=== PATIENT | male | born 1955 | race Caucasian/White ===

== ENCOUNTER 2020-04-16 08:00 | Outpatient (REF) | payer MEDICARE, MEDICAID, SELFPAY ==
--- NOTE | 2020-04-16 08:20 | MR_ITS ---
EXAMINATION: MR ABDOMEN WITHOUT AND WITH CONTRAST CLINICAL INFORMATION: Follow up liver lesion. COMPARISON: Outside CT of the abdomen and pelvis 02/26/2020. TECHNIQUE: MR abdomen was performed without and with use of 10 mL intravenous Gadavist gadolinium contrast. Postcontrast images are performed in multiphase dynamic sequences. Imaging was performed in 3 planes. Exam is limited due to respiratory motion artifact. FINDINGS: LUNG BASES: The visualized lung bases are unremarkable. LIVER, GALLBLADDER, AND BILIARY TREE: The liver is normal in size in size and shape. The liver appears low signal on in phase gradient echo T2-weighted sequences probably related to iron deposition from multiple transfusions. No focal liver lesion is seen. The gallbladder has been removed. There is no intra or extrahepatic biliary duct dilatation. PANCREAS: The pancreas is normal appearing. The main pancreatic duct is normal appearing. SPLEEN: The spleen is slightly enlarged measuring 13.4 cm in length. The spleen is also low signal on gradient echo in phase and T2-weighted sequences again questionable for iron deposition from multiple transfusions. ADRENAL GLANDS: Normal. KIDNEYS AND URETERS: Both kidneys appear small. The right kidney measures 7.3 and the left kidney measures 7.5 cm in length. There is bilateral renal cortical thinning. There are innumerable bilateral renal cysts, largest measuring 1.3 cm. No hydronephrosis or mass is seen. GASTROINTESTINAL TRACT: The visualized small and large bowel is unremarkable. No bowel obstruction. There is mild diffuse wall thickening of the stomach probably artifactual due to underdistention. No ascites or fluid collection. ABDOMINAL WALL: No significant hernia is appreciated. LYMPH NODES: No lymphadenopathy. VASCULAR: Unremarkable. OSSEOUS STRUCTURES: There are degenerative changes of the spine. There is decreased T2 marrow signal probably representing increased red marrow stores due to anemia. MR/MR abdomen wo/w con IMPRESSION: Limited exam due to respiratory motion artifact. No focal liver lesion seen. Probable increased iron stores in the liver and spleen related to multiple transfusions. Mild splenomegaly. Atrophic-appearing kidneys with innumerable small bilateral renal cysts.
[2020-04-16 11:16] LABS: Anion Gap 23 (12-20); Blood Urea Nitrogen 48 mg/dL (9-16); Calcium 7.8 mg/dL (8.4-10.2); Carbon Dioxide 25 mmol/L (22-29); Chloride 97 mmol/L (96-108); Estimated Glomerular Filt Rate 5; Glucose Random 199 mg/dL (60-115); Potassium 5.9 mmol/l (3.3-5.1); Sodium 139 mmol/L (135-145)
== END 2020-04-16 08:01 | disposition home or self-care (01) ==
LOC: HO.MRI 08:00
PROVIDERS: PCP Internal Medicine Geriatric Medicine; Visit Provider Internal Medicine Geriatric Medicine
DX: R16.0 Hepatomegaly, not elsewhere classified (principal)
CPT/HCPCS: 74183; 80048; A9585

== ENCOUNTER 2020-06-25 06:05 | Emergency (ER) | payer MEDICARE, MEDICAID, SELFPAY ==
--- NOTE | ~2020-06-25 | CT_ITS ---
EXAMINATION: CT HEAD WITHOUT CONTRAST CLINICAL INFORMATION: Fall with head trauma COMPARISON: March 23, 2018 TECHNIQUE: Contiguous axial imaging was performed from the skull base to vertex without intravenous administration of contrast. This CT examination was performed using dose optimization techniques as appropriate, variously including the following: *Automated exposure control *Adjustment of mA and/or kV according to patient size (this includes techniques or standardized protocols for targeted exams where dose is matched to indication/reason for exam; i.e. extremities or head) *Use of iterative reconstruction technique DLP: 902 mGy-cm FINDINGS: There is no evidence of acute intracranial hemorrhage or territorial infarction. No abnormal mass effect or midline shift is seen. Góme[place] to white matter differentiation is well preserved. No extra-axial fluid collections are identified. The ventricle sulci and cisterns are prominent consistent with some degree of atrophy.. There is no abnormal attenuation within the brain parenchyma. The osseous structures and soft tissues are normal. The mastoid air cells and visualized portions of the paranasal sinuses are well aerated. CT/CT head/brain wo con IMPRESSION: No acute intracranial pathology.
--- NOTE | ~2020-06-25 | CT_ITS ---
EXAMINATION: CT CERVICAL SPINE WITHOUT CONTRAST CLINICAL INFORMATION: Fall, trauma, pain COMPARISON: CT C-spine 02/15/2015 TECHNIQUE: Multidetector volumetric CT imaging of the cervical spine is performed without contrast in the axial plane. Additional 2D reformatted coronal and sagittal images are generated on the CT workstation and uploaded to PACS. This CT examination was performed using dose optimization techniques as appropriate, variously including the following: *Automated exposure control *Adjustment of mA and/or kV according to patient size (this includes techniques or standardized protocols for targeted exams where dose is matched to indication/reason for exam; i.e. extremities or head) *Use of iterative reconstruction technique DLP: 749 mGy-cm FINDINGS: There is no acute bony traumatic abnormality. No vertebral compression, spondylolisthesis, or prevertebral soft tissue swelling. The odontoid appears intact. The craniocervical junction is normal. There is normal cervical lordosis. There are degenerative disc changes C5-C6 with some cystic change at the endplates, extending into the C5 vertebral body, 1 cm in size with circumscribed margins. No paraspinal soft tissue swelling. There is no perched facet. There is no apical pneumothorax. There is intravascular stent seen on the right involving the subclavian vein and superior vena cava. CT/CT cervical spine wo con IMPRESSION: 1. No acute bony abnormality or prevertebral soft tissue swelling. 2. Degenerative changes C5-C6 with 1 cm cystic change inferior C5. No paraspinal soft tissue swelling.
[2020-06-25 06:13] VITALS: BP 158/62; BP 183/92; PULSE 63; PULSE 68; RESP 18; TEMP 37.6; O2SAT 97; O2SAT 98; BMI 28.8
--- NOTE | 2020-06-25 06:49 | ED_ITS ---
HPI - Fall General Chief Complaint: Fall Stated Complaint: fall Time Seen by Provider: 06/25/20 06:49 Source: patient Mode of arrival: EMS Limitations: no limitations History of Present Illness HPI Narrative: Patient fell in the hallway of his apartment, he normally uses a walker complaint: fall Onset (ago): minute(s) Fall from: standing Fall witnessed: no Place fall occurred: home Loss of consciousness: yes Prolonged down time: no Symptoms prior to fall: none Context: tripped/slipped Related Data Previous Rx's Medication Instructions Recorded isosorbide mononitrate 60 mg 60 mg PO DAILY #30 tab 05/16/20 tablet,extended release 24 hr Allergies Allergy/AdvReac Type Severity Reaction Status Date / Time No Known Allergies Allergy Unverified 01/25/20 16:50 [No Known Allergies*] Review of Systems Constitutional: Constitutional: Reports no additional constitutional complaints Eyes: Eyes: Reports no additional eye complaints ENT: Denies dizziness Cardiovascular: Cardiovascular: Reports no additional cardiovascular complaints Respiratory: Respiratory: Reports as per HPI Gastrointestinal: Gastrointestinal: Reports no additional gastrointestinal complaints Musculoskeletal: Musculoskeletal: Reports no additional musculoskeletal complaints Integumentary/Breasts: Skin/Breast: Denies rash Neurologic: Reports system reviewed and no additional complaints, except as documented, Denies dizziness and Denies Sensory deficit (Neuro) Psychiatric: Psychiatric: Denies anxiety [facility] Past Medical History Medical History (Updated 06/25/20 @ 09:26 by Hoang Moreno MD) Diabetes Social History Social History Advance Directives: No Physical Exam Vital Signs: Vital Signs: Last Vital Signs Temp 99.6 F 06/25/20 06:13 Pulse 67 06/25/20 09:17 Resp 18 06/25/20 09:17 BP 154/72 H 06/25/20 09:17 Pulse Ox 97 06/25/20 09:17 Body Mass Index 28.8 Const: Other: chronically ill Male, abnormal mental status which may be baseline Orientation/consciousness: oriented to person Limitations: behavioral limitations HENMT: Head: Yes normal to inspection Ears: external ears normal General nose exam: Normal external nose present Mouth: Normal oral and palatal mucosa present and oropharynx normal Throat: Yes posterior oropharynx normal Eyes: General: appearance normal, both eyes and all related structures Neck: Other: supple Neck: Yes normal visual inspection Chest: Chest palpation & inspection: normal inspection of the chest Resp: Auscultation: clear to auscultation bilaterally Cardio: Jugular venous distension: no JVD Rate: regular rate Rhythm: regular rhythm Heart sounds: S1 normal heart sound present and S2 normal heart sound present GI: Inspection: Yes normal to inspection Palpation (GI): Soft to palpation, nontender and No hepatosplenomegaly present Auscultation: normal bowel sounds Back/Spine/Pelvis: Other: chronic neck and back pain Skin: General skin exam: no rashes or lesions noted Neuro: Other: lower extremity weakness which the patient states is his baseline General: oriented to person Cranial nerves: Yes CN's II-XII intact bilaterally Sensory Exam: No Sensory deficit (Neuro) Extrem: General: Yes normal to inspection Psych: Appearance: grossly normal Course Course Course Narrative: no evidence of injury hyperkalemia without ekg changes. Will get patient to dialysis MDM - Fall MDM Narrative Medical decision making narrative: With no evidence of injury and patient due for dialysis will get patient to dialysis Lab Data Result diagrams: 06/25/20 07:02 06/25/20 07:02 Labs: Lab Results 06/25/20 06/25/20 06/25/20 Range/Units 07:02 07:02 07:23 WBC 12.4 H (4.8-10.8) X10*3/uL RBC 2.85 L (4.60-5.80) X10*6/uL Hgb 9.5 L (14.0-18.0) g/dl Hct 28.5 L (42-52) % MCV 100.0 H (80-98) fL MCH 33.3 H (27.0-33.0) pg MCHC 33.3 (31.0-36.0) g/dl RDW 14.8 (11.0-16.0) % Plt Count 162 (160-400) X10*3/uL MPV 9.9 (9.4-12.4) fL Immature Gran % (Auto) 0.3 (0.0-0.4) % Neut % (Auto) 83.9 H (45-73) % Lymph % (Auto) 8.2 L (20-40) % [place] % (Auto) 6.8 (2-11) % Eos % (Auto) 0.5 (0-4) % Baso % (Auto) 0.3 (0-2) % Lymph # (Auto) 1.0 L (1.2-4.9) X10*3/uL [place] # (Auto) 0.8 (0.1-1.2) X10*3/uL Eos # (Auto) 0.1 (0.0-0.4) X10*3/uL Baso # (Auto) 0.0 (0.0-0.2) X10*3/uL Abs Immat Gran (auto) 0.04 H (0.00-0.03) X10*3/uL Absolute Neuts (auto) 10.4 H (2.0-8.3) X10*3/uL Absolute Nucleated RBC 0.000 (0.0-0.012) X10*3/uL Nucleated RBC % (auto) 0.0 (0.0-0.2) /100WBC Sodium 137 (135-145) mmol/L Potassium 6.9 H* (3.3-5.1) mmol/L Chloride 100 (96-108) mmol/L Carbon Dioxide 23 (22-29) mmol/L Anion Gap 21 H (12-20) BUN 50 H (9-16) mg/dL Creatinine 8.67 H* (0.5-1.4) mg/dL Estim Creat Clear Calc 9.6 Estimated GFR 6 POC Glucose 117 H (60-115) mg/dL Random Glucose 118 H D (60-115) mg/dL Calcium 8.1 L (8.4-10.2) mg/dL Imaging Data CT neck: Radiologist's impression: degenerative changes CT scan - head: Radiologist's impression: no acute change ECG Data Attestation: I personally reviewed and interpreted this ECG as follows: Interpretation: sinus 66, no st or twave changes, no evidence of hyperkalemia Discharge Plan Discharge Clinical Impression: Fall Qualifiers: Encounter type: initial encounter Qualified Code(s): W19.XXXA - Unspecified fall, initial encounter Patient Disposition: Home, Self-Care Prescriptions: No Action isosorbide mononitrate 60 mg tablet extended release 24 hr 60 mg PO DAILY Qty: 30 RF: 1 Referrals: Physician,Unknown [Primary Care Provider] - 2 days
--- NOTE | 2020-06-25 06:57 | ECG_ITS ---
Test Reason : SYNCOPE Blood Pressure : / mmHG Vent. Rate : 066 BPM Atrial Rate : 066 BPM P-R Int : 158 ms QRS Dur : 096 ms QT Int : 406 ms P-R-T Axes : 050 -47 016 degrees QTc Int : 425 ms Normal sinus rhythm Possible Left atrial enlargement Left axis deviation Abnormal ECG When compared with ECG of 22-MAR-2018 14:24, Premature atrial complexes are no longer Present Vent. rate has decreased BY 38 BPM QT has shortened Referred By: Hoang Moreno Electronically Signed By:Shekhar Shepherd
[2020-06-25 07:07] LABS: MANUAL DIFF FLAG NO
[2020-06-25 07:08] LABS: Basophils Percent Auto 0.3 % (0-2); Eosinophils Absolute Auto 0.1 X10*3/uL (0.0-0.4); Eosinophils Percent Auto 0.5 % (0-4); Hematocrit 28.5 % (42-52); Hemoglobin 9.5 g/dl (14.0-18.0); Imm Gran Abs Auto 0.04 X10*3/uL (0.00-0.03); Imm Gran Pct Auto 0.3 % (0.0-0.4); Lymphocytes Percent Auto 8.2 % (20-40); Mean Corpuscular HGB Conc 33.3 g/dl (31.0-36.0); Mean Corpuscular Hemoglobin 33.3 pg (27.0-33.0); Mean Platelet Volume 9.9 fL (9.4-12.4); Monocytes Absolute Auto 0.8 X10*3/uL (0.1-1.2); Monocytes Percent Auto 6.8 % (2-11); Neutrophils Absolute Auto 10.4 X10*3/uL (2.0-8.3); Neutrophils Percent Auto 83.9 % (45-73); Platelet Count 162 X10*3/uL (160-400); Red Blood Count 2.85 X10*6/uL (4.60-5.80); Red Cell Distribution Width 14.8 % (11.0-16.0); White Blood Count 12.4 X10*3/uL (4.8-10.8)
[2020-06-25 07:14] VITALS: BP 161/65; PULSE 65; RESP 18; O2SAT 98
--- NOTE | 2020-06-25 07:20 | PC.NURSE ---
pt awake in bed awaiting ct scan at time of shift report. he has no access at this time he has no obvious deformities ,bruising or abrasion when hospital attire is donned. he reports back pain acute on chronic
[2020-06-25 07:28] LABS: Glucose, Whole Blood 117 mg/dL (60-115)
[2020-06-25 07:54] LABS: Anion Gap 21 (12-20); Blood Urea Nitrogen 50 mg/dL (9-16); Calcium 8.1 mg/dL (8.4-10.2); Carbon Dioxide 23 mmol/L (22-29); Chloride 100 mmol/L (96-108); Creatinine Clr Calc Pharmacy 9.6; Estimated Glomerular Filt Rate 6; Glucose Random 118 mg/dL (60-115); Potassium 6.9 mmol/L (3.3-5.1); Sodium 137 mmol/L (135-145)
[2020-06-25 09:17] VITALS: BP 154/72; PULSE 67; RESP 18; O2SAT 97
--- NOTE | 2020-06-25 09:49 | PC.NURSE ---
CALLED TO [facility]. PT IS OK TO GO THIS AM FOR HIS TREATMENT JAVI CARDOZO
[2020-06-25 10:22] VITALS: BP 151/64; PULSE 66; RESP 18
--- NOTE | 2020-06-25 11:59 | PC.NURSE ---
NO REPORT TO EMS. PT WAS OUT OF ROOM WHEN THIS RN WENT TO PROVIDE CREW HX.
== END 2020-06-25 12:00 | disposition home or self-care (01) ==
PROVIDERS: Emergency Provider Emergency Medicine
DX: Z04.3 Encounter for examination and observation following other accident (principal); E11.9 Type 2 diabetes mellitus without complications
CPT/HCPCS: 36415; 70450; 72125; 80048; 82947; 85025; 93005; 99284

== ENCOUNTER 2020-07-14 09:51 | Emergency (ER) | payer MEDICARE, MEDICAID, SELFPAY ==
--- NOTE | ~2020-07-14 | XR_ITS ---
EXAMINATION: XR CHEST CLINICAL INFORMATION: Weakness. COMPARISON: Chest done on 03/22/2018. TECHNIQUE: Frontal view of the chest was obtained. FINDINGS: No significant abnormality is noted involving the heart, lungs, mediastinum, bony thorax or soft tissues. Multiple overlapping radiopaque wallstents are identified projecting over the right shoulder and subclavicular, paramediastinal region, unchanged. XR/XR chest 1V IMPRESSION: No radiographic evidence of acute pulmonary disease, unchanged.
[2020-07-14 09:59] VITALS: BP 217/98; PULSE 75; RESP 16; TEMP 36.6; O2SAT 100; BMI 28.1
--- NOTE | 2020-07-14 10:03 | ECG_ITS ---
Test Reason : ABNORMAL LABS Blood Pressure : / mmHG Vent. Rate : 073 BPM Atrial Rate : 073 BPM P-R Int : 140 ms QRS Dur : 088 ms QT Int : 444 ms P-R-T Axes : 051 -37 -19 degrees QTc Int : 489 ms Sinus rhythm with PACs Left axis deviation Nonspecific T wave abnormality Prolonged QT Abnormal ECG When compared with ECG of 25-JUN-2020 07:07, T wave inversion more evident in Inferior leads Nonspecific T wave abnormality now evident in Lateral leads QT has lengthened Referred By: Milan Soto Electronically Signed By:THOM CABRAL
--- NOTE | 2020-07-14 10:03 | ED.GENADULT ---
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 Arnulfo cruz [facility], diabetes, hypertension, asthma, osteoarthritis, depression, nephrolithiasis who presents via EMS from home with complaint of states after his dialysis on he received his 2nd round of his COVID vaccination ([employer]) states the next morning he started having body aches and overall feeling unwell for this reason he misses dialysis yesterday. Today he presents as complaint of overall feeling unwell with myalgias and due to missing his dialysis. States this this morning he had episode of nausea and loose stool that she did not take his blood pressure medication as well. Onset (ago): day(s) (3 days ) Severity: moderate Associated symptoms: nausea/vomiting Related Data Previous Rx's Medication Instructions Recorded isosorbide mononitrate 60 mg 60 mg PO QAM #30 tab 07/09/20 tablet,extended release 24 hr ranolazine 500 mg tablet,extended 500 mg PO BID #60 tab 07/09/20 release,12 hr Allergies Allergy/AdvReac Type Severity Reaction Status Date / Time No Known Allergies Allergy Unverified 01/25/20 16:50 [No Known Allergies*] Review of Systems Review of Systems: Constitutional: No Weight loss, No Fever, No Chills, No Night Sweats, No Fatigue, No Malaise ENT/Mouth: No Hearing loss, No Ear Pain, No Nasal Congestion, No Sinus Pain, No Hoarseness, No sore throat, No Rhinorrhea, No Swallowing Difficulty Eyes: No Eye Pain, No Swelling, No Redness, No Foreign Body, No Discharge, No Vision Changes Cardiovascular: No Chest Pain, No SOB, No Dyspnea on Exertion, No Orthopnea, No Edema, No Palpitations Respiratory: No Cough, No Sputum, No Wheezing, No Smoke Exposure, No Dyspnea Gastrointestinal:+ Nausea,+ Vomiting, No Diarrhea, No Constipation, No abdominal Pain, No Hematochezia, No Melena Genitourinary: No Dysuria, No Urinary Frequency, No Hematuria, No Urinary Incontinence, No Urgency, No Flank Pain, No Urinary Flow Changes, No Hesitancy Musculoskeletal: No joint pain, No Myalgias, No Joint Swelling Skin: No Skin Lesions, No rash Neuro: No Weakness, No Numbness, No Paresthesias, No Loss of Consciousness, No Dizziness, No Headache Psych: No Social Issues Heme/Lymph: No Bruising, No Bleeding,No Lymphadenopathy Endocrine: No Polyuria, No Polydipsia, No Temperature Intolerance Yes all other systems are reviewed and are negative [facility] Past Medical History [facility] Narrative: end-stage renal disease on hemodialysis Wednesday, , Wednesday being followed by Dr. Arnulfo cruz [facility], diabetes, hypertension, asthma, osteoarthritis, depression, nephrolithiasis Medical History Diabetes Surgical History Hx of cardiac cath Hx of cholecystectomy Hx of colonoscopy Hx of knee surgery Family History Family History (Updated 07/12/20 @ 16:27 by SALONI Wang) Father No problems noted. Mother Diabetes Social History Social History Advance Directives: No Advance Directives Information Provided: No Physical Exam Vital Signs: Vital Signs: Last Vital Signs Temp 97.9 F 07/14/20 09:59 Pulse 84 07/14/20 13:55 Resp 16 07/14/20 09:59 BP 190/85 H 07/14/20 15:07 Pulse Ox 100 07/14/20 09:59 Body Mass Index 28.1 Reviewed Const: General: cooperative; No intoxicated appearing Nutritional Appearance: average body habitus and overweight Orientation/consciousness: patient oriented x3 HENMT: Head: Yes normal to inspection Ears: hearing grossly normal bilaterally Eyes: General: appearance normal, both eyes and all related structures Visual Glover: normal visual glover by confrontation Neck: Neck: Yes normal visual inspection, No positive Brudzinski's sign, No positive Kernig's sign and No tender Thyroid: Thyroid normal Chest: Chest palpation & inspection: normal inspection of the chest Resp: Effort & Inspection: normal respiratory effort Auscultation: clear to auscultation bilaterally Cardio: Jugular venous distension: no JVD Rhythm: regular rhythm Heart sounds: S1 normal heart sound present and S2 normal heart sound present GI: Inspection: Yes normal to inspection Percussion: Yes normal to percussion Auscultation: normal bowel sounds : General: Yes no CVA tenderness Back/Spine/Pelvis: Back: no CVA tenderness Skin: General skin exam: no rashes or lesions noted Neuro: General: patient oriented x3 Extrem: Other: Right upper extremity with dialysis fistula without evidence of acute infection or bleeding. Positive thrill/bruit General: Yes normal to inspection Right upper extremity: normal to inspection and full ROM Left upper extremity: normal to inspection and full ROM Course Course Course Narrative: Myalgia and pains after COVID vaccination misses dialysis yesterday. Labs overall reassuring does not appear to be in fluid overload. K slightly bump given Kayexalate. He is currently eating sandwich and drinking drill was given his blood pressure medication here and observe responded well. Case discussed with Nephrology Dr. Arredondo will arrange for dialysis tomorrow morning. Medical Decision Making Lab Data Result diagrams: 07/14/20 10:18 07/14/20 10:18 Labs: Lab Results 07/14/20 07/14/20 07/14/20 Range/Units 10:18 10:18 10:18 WBC 7.7 (4.8-10.8) X10*3/uL RBC 3.29 L (4.60-5.80) X10*6/uL Hgb 11.0 L (14.0-18.0) g/dl Hct 32.5 L (42-52) % MCV 98.8 H (80-98) fL MCH 33.4 H (27.0-33.0) pg MCHC 33.8 (31.0-36.0) g/dl RDW 14.6 (11.0-16.0) % Plt Count 188 (160-400) X10*3/uL MPV 10.4 (9.4-12.4) fL Immature Gran % (Auto) 0.4 (0.0-0.4) % Neut % (Auto) 77.7 H (45-73) % Lymph % (Auto) 14.1 L (20-40) % [place] % (Auto) 6.5 (2-11) % Eos % (Auto) 0.8 (0-4) % Baso % (Auto) 0.5 (0-2) % Lymph # (Auto) 1.1 L (1.2-4.9) X10*3/uL [place] # (Auto) 0.5 (0.1-1.2) X10*3/uL Eos # (Auto) 0.1 (0.0-0.4) X10*3/uL Baso # (Auto) 0.0 (0.0-0.2) X10*3/uL Abs Immat Gran (auto) 0.03 (0.00-0.03) X10*3/uL Absolute Neuts (auto) 6.0 (2.0-8.3) X10*3/uL Absolute Nucleated RBC 0.000 (0.0-0.012) X10*3/uL Nucleated RBC % (auto) 0.0 (0.0-0.2) /100WBC PT 13.7 H (10.8-13.0) SEC INR 1.2 H (0.9-1.1) APTT 36.0 (24.1-38.0) SEC Sodium 140 (135-145) mmol/L Potassium 5.5 H D (3.3-5.1) mmol/L Chloride 98 (96-108) mmol/L Carbon Dioxide 23 (22-29) mmol/L Anion Gap 25 H (12-20) BUN 45 H (9-16) mg/dL Creatinine 10.22 H* (0.5-1.4) mg/dL Estim Creat Clear Calc 8.0 Estimated GFR 5 Random Glucose 267 H D (60-115) mg/dL Calcium 8.2 L (8.4-10.2) mg/dL Total Bilirubin 0.6 (0.0-1.0) mg/dL AST 7 (5-37) U/L ALT < 6 (0-40) U/L Alkaline Phosphatase 124 H (39-117) U/L Total Protein 7.2 (6.5-8.0) g/dL Albumin 3.9 (3.5-5.0) g/dL Coronavirus (PCR) (Negative) Influenza Type A (PCR) (Negative) Influenza Type B (PCR) (Negative) RSV RNA Qual (PCR) (Negative) 07/14/20 Range/Units 10:18 WBC (4.8-10.8) X10*3/uL RBC (4.60-5.80) X10*6/uL Hgb (14.0-18.0) g/dl Hct (42-52) % MCV (80-98) fL MCH (27.0-33.0) pg MCHC (31.0-36.0) g/dl RDW (11.0-16.0) % Plt Count (160-400) X10*3/uL MPV (9.4-12.4) fL Immature Gran % (Auto) (0.0-0.4) % Neut % (Auto) (45-73) % Lymph % (Auto) (20-40) % [place] % (Auto) (2-11) % Eos % (Auto) (0-4) % Baso % (Auto) (0-2) % Lymph # (Auto) (1.2-4.9) X10*3/uL [place] # (Auto) (0.1-1.2) X10*3/uL Eos # (Auto) (0.0-0.4) X10*3/uL Baso # (Auto) (0.0-0.2) X10*3/uL Abs Immat Gran (auto) (0.00-0.03) X10*3/uL Absolute Neuts (auto) (2.0-8.3) X10*3/uL Absolute Nucleated RBC (0.0-0.012) X10*3/uL Nucleated RBC % (auto) (0.0-0.2) /100WBC PT (10.8-13.0) SEC INR (0.9-1.1) APTT (24.1-38.0) SEC Sodium (135-145) mmol/L Potassium (3.3-5.1) mmol/L Chloride (96-108) mmol/L Carbon Dioxide (22-29) mmol/L Anion Gap (12-20) BUN (9-16) mg/dL Creatinine (0.5-1.4) mg/dL Estim Creat Clear Calc Estimated GFR Random Glucose (60-115) mg/dL Calcium (8.4-10.2) mg/dL Total Bilirubin (0.0-1.0) mg/dL AST (5-37) U/L ALT (0-40) U/L Alkaline Phosphatase (39-117) U/L Total Protein (6.5-8.0) g/dL Albumin (3.5-5.0) g/dL Coronavirus (PCR) NEGATIVE (Negative) Influenza Type A (PCR) NEGATIVE (Negative) Influenza Type B (PCR) NEGATIVE (Negative) RSV RNA Qual (PCR) NEGATIVE (Negative) Imaging Data Chest x-ray: Radiologist's impression: [address] [id number] ReportSigned Patient: Tayler Drake#: [id number]: 5Acct:[id number]/Sex: 64 / MADM Date: 07/14/20Loc: EDAttending Dr: Ordering Physician: Milan Soto NP Date of Service: 07/14/20 Procedure(s): XR chest 1V Accession Number(s): [id number] cc: Milan Soto MOLD CARPENTER~ EXAMINATION: XR CHEST CLINICAL INFORMATION: Weakness. COMPARISON: Chest done on 03/22/2018. TECHNIQUE: Frontal view of the chest was obtained. FINDINGS: No significant abnormality is noted involving the heart, lungs, mediastinum, bony thorax or soft tissues. Multiple overlapping radiopaque wallstents are identified projecting over the right shoulder and subclavicular, paramediastinal region, unchanged. XR/XR chest 1V IMPRESSION: No radiographic evidence of acute pulmonary disease, unchanged. Dictated By:FLORENCE SANTOS MDSigned By:<Electronically signed by FLORENCE SANTOS MD in OV>07/14/20 1103 DD/ 1004TD/TT: Market Research Analyst: CASEY ECG Data Interpretation: Sinus rhythm with marked sinus arrhythmia Rate 73 Left axis deviation Nonspecific T wave abnormality Prolonged QT Abnormal ECG When compared with ECG of 25-JUN-2020 07:07, T wave inversion more evident in Inferior leads Nonspecific T wave abnormality now evident in Lateral leads QT has lengthened Discharge Plan Discharge Clinical Impression: Side effect of medication, Nausea & vomiting Patient Disposition: Home, Self-Care Instructions: Acute Nausea and Vomiting (ED), The Importance of Immunizations (Vaccines) for Adults (ED) Additional Instructions: Gradually increase her diet as tolerated This side effects that you are experiencing from the COVID-19 vaccination are common and should start to resolve after 72 hours I have spoken to your dialysis doctor and they will be call you tomorrow morning to set up appointment for dialysis Gradually increase her diet as tolerated Make sure you take your medications as prescribed Return if any concerns or worsening symptoms Thank you Prescriptions: No Action isosorbide mononitrate 60 mg tablet extended release 24 hr 60 mg PO QAM Qty: 30 RF: 1 ranolazine [Ranexa] 500 mg tablet extended release 12 hr 500 mg PO BID Qty: 60 RF: 5 Referrals: Physician,Unknown [Primary Care Provider] - 1 day (Dr. Arredondo dialysis) Interventions: ED Discharge Assessment Last Done: 07/14/20 15:09 Discharge Date/Time: 07/14/20 15:10
[2020-07-14 10:50] LABS: MANUAL DIFF FLAG NO
[2020-07-14 10:52] LABS: Basophils Percent Auto 0.5 % (0-2); Eosinophils Absolute Auto 0.1 X10*3/uL (0.0-0.4); Eosinophils Percent Auto 0.8 % (0-4); Hematocrit 32.5 % (42-52); Imm Gran Abs Auto 0.03 X10*3/uL (0.00-0.03); Imm Gran Pct Auto 0.4 % (0.0-0.4); Lymphocytes Absolute Auto 1.1 X10*3/uL (1.2-4.9); Lymphocytes Percent Auto 14.1 % (20-40); Mean Corpuscular HGB Conc 33.8 g/dl (31.0-36.0); Mean Corpuscular Hemoglobin 33.4 pg (27.0-33.0); Mean Corpuscular Volume 98.8 fL (80-98); Mean Platelet Volume 10.4 fL (9.4-12.4); Monocytes Absolute Auto 0.5 X10*3/uL (0.1-1.2); Monocytes Percent Auto 6.5 % (2-11); Neutrophils Percent Auto 77.7 % (45-73); Platelet Count 188 X10*3/uL (160-400); Red Blood Count 3.29 X10*6/uL (4.60-5.80); Red Cell Distribution Width 14.6 % (11.0-16.0); White Blood Count 7.7 X10*3/uL (4.8-10.8)
[2020-07-14 11:01] LABS: INTERNATIONAL NORM RATIO 1.2 (0.9-1.1); Prothrombin Time 13.7 SEC (10.8-13.0)
[2020-07-14 11:22] LABS: Influenza A PCR NEGATIVE (Negative); Influenza B PCR NEGATIVE (Negative); Resp Syncy Virus RNA Qual PCR NEGATIVE (Negative); SARS COV2 PCR INHOUSE NEGATIVE (Negative)
[2020-07-14 11:23] LABS: Alanine Aminotransferase < 6 U/L (0-40); Albumin Level 3.9 g/dL (3.5-5.0); Alkaline Phosphatase 124 U/L (39-117); Anion Gap 25 (12-20); Aspartate Amino Transferase 7 U/L (5-37); Bilirubin Total 0.6 mg/dL (0.0-1.0); Calcium 8.2 mg/dL (8.4-10.2); Carbon Dioxide 23 mmol/L (22-29); Chloride 98 mmol/L (96-108); Glucose Random 267 mg/dL (60-115); Potassium 5.5 mmol/L (3.3-5.1); Sodium 140 mmol/L (135-145); Total Protein 7.2 g/dL (6.5-8.0)
[2020-07-14 11:24] LABS: Blood Urea Nitrogen 45 mg/dL (9-16); Estimated Glomerular Filt Rate 5
[2020-07-14] MEDS: ondansetron HCL 4 MG/2 ML VIAL IVPUSH (11:32)
[2020-07-14] MEDS: 0.9 % Sodium Chloride 500 ML IV (11:33)
[2020-07-14] MEDS: Sodium Polystyrene Sulfon/Sorb 15 GM/60 ML ORAL.SUSP 60 GM PO (13:08)
[2020-07-14] MEDS: Acetaminophen 325 MG TABLET 650 MG PO (13:08)
--- NOTE | 2020-07-14 13:09 | PC.NURSE ---
CALL PLACED TO DR GONZALEZ AT 1309, AWAITING CALL BACK.
--- NOTE | 2020-07-14 13:31 | PC.NURSE ---
[id number] DR GONZALEZ RETURNED CALL AND SPOKE WITH MELONIE NICOLE NP.
[2020-07-14 13:55] VITALS: BP 219/101; PULSE 84
[2020-07-14] MEDS: NIFEdipine ER 30 MG TAB.ER.24 90 MG PO (13:55)
[2020-07-14] MEDS: cloNIDine HCL 0.2 MG TABLET PO (13:55)
[2020-07-14 15:07] VITALS: BP 190/85
== END 2020-07-14 15:10 | disposition home or self-care (01) ==
PROVIDERS: Nurse Practitioner Primary Care; Emergency Provider Emergency Medicine
DX: R11.2 Nausea with vomiting, unspecified (principal); R53.1 Weakness; T50.Z95A Adverse effect of other vaccines and biological substances, initial encounter; Y92.039 Unspecified place in apartment as the place of occurrence of the external cause; Z20.822 Contact with and (suspected) exposure to COVID-19; E11.22 Type 2 diabetes mellitus with diabetic chronic kidney disease; I12.0 Hypertensive chronic kidney disease with stage 5 chronic kidney disease or end stage renal disease; N18.6 End stage renal disease; Z99.2 Dependence on renal dialysis
CPT/HCPCS: 0241U; 36415; 71045; 80053; 85025; 85610; 85730; 93005; 96361; 96374; 99283; 99284; J2405

== ENCOUNTER 2020-08-07 | Outpatient (REF) | payer MEDICARE, MEDICAID, SELFPAY | END 2020-08-07 00:01 | LOC: CF | PROVIDERS: Visit Provider Internal Medicine Cardiovascular Disease | DX: I25.10 Atherosclerotic heart disease of native coronary artery without angina pectoris (principal); I42.9 Cardiomyopathy, unspecified; I25.5 Ischemic cardiomyopathy; I10 Essential (primary) hypertension; I50.30 Unspecified diastolic (congestive) heart failure; Z79.899 Other long term (current) drug therapy | CPT/HCPCS: 99212 ==

== ENCOUNTER → 2020-08-07 09:37 | Outpatient (BNVA) | payer MEDICARE, MEDICAID, SELFPAY | PROVIDERS: PCP Internal Medicine Geriatric Medicine; Visit Provider Internal Medicine Cardiovascular Disease ==

== ENCOUNTER → 2020-12-03 12:20 | Outpatient (BNVA) | payer MEDICARE, MEDICAID, SELFPAY | PROVIDERS: PCP Internal Medicine Geriatric Medicine; Referring Provider Internal Medicine Geriatric Medicine; Visit Provider Internal Medicine Cardiovascular Disease | DX: I50.30 Unspecified diastolic (congestive) heart failure (principal); I25.10 Atherosclerotic heart disease of native coronary artery without angina pectoris; I25.5 Ischemic cardiomyopathy; I10 Essential (primary) hypertension | CPT/HCPCS: 99212 ==

== ENCOUNTER 2020-12-24 11:26 | Inpatient (IN) | payer MEDICARE, MEDICAID, SELFPAY ==
[2020-12-24] VITALS (10 sets, daily range): BP systolic 138–214; BP diastolic 63–93; PULSE 58–80; RESP 18–25; TEMP 36.1–36.6; O2SAT 93–98; BMI 30.4
--- NOTE | ~2020-12-24 | XR_ITS ---
EXAMINATION: XR CHEST CLINICAL INFORMATION: End-stage renal disease. COMPARISON: Chest radiographs, most recently 07/14/2020. TECHNIQUE: Frontal view of the chest was obtained. FINDINGS: The heart, great vessels and mediastinum are stable. There is mild pulmonary vascular congestion, without overt congestive heart failure. There is mild elevation the right hemidiaphragm, similar to prior examinations including 06/15/2016. No new infiltrate, effusion or pneumothorax is seen. Right central and upper extremity endovascular stent material is noted. There is no acute osseous abnormality. XR/XR chest 1V IMPRESSION: 1. There is mild pulmonary vascular congestion, without overt congestive heart clear. 2. There is mild elevation the right hemidiaphragm, with volume loss. 3. No focal infiltrate or effusion is seen.
--- NOTE | ~2020-12-24 | CT_ITS ---
EXAMINATION: CT abdomen pelvis wo con CLINICAL INFORMATION: Reason for Exam Eval Abd pain, nausea and vomiting COMPARISON: Prior CT February 2020 TECHNIQUE: Multidetector volumetric imaging was performed from the superior aspect of the liver through the pubic symphysis , noncontrasted study. Sagittal and coronal reformatted images were obtained on the technologist's workstation. This CT examination was performed using dose optimization techniques as appropriate, variously including the following: *Automated exposure control *Adjustment of mA and/or kV according to patient size (this includes techniques or standardized protocols for targeted exams where dose is matched to indication/reason for exam; i.e. extremities or head) *Use of iterative reconstruction technique DLP: 1395 mGy-cm FINDINGS: LOWER THORAX: Included lung bases are clear. HEPATOBILIARY: No focal hepatic lesions. No biliary ductal dilatation. GALLBLADDER: Has been removed, there are surgical clips in the gallbladder bed. SPLEEN: Spleen is normal in size. PANCREAS: No focal mass or ductal dilatation. STOMACH AND GASTROINTESTINAL TRACT: Stomach is grossly unremarkable. There is heavy sigmoid diverticulosis without evidence of acute diverticulitis. No CT evidence of appendicitis. ADRENALS: No adrenal nodules. KIDNEYS/URETERS: Multiple bilateral renal cysts there are too many to individually characterize and measure mostly simple cysts. The largest on the right measure up to 2.2 cm, the largest on the left measures 2.3 cm. Thinning of renal cortex suggests chronic medical renal disease. No hydronephrosis. URINARY BLADDER: Heterogeneous thickening of the urinary bladder, in part due to its nondistention, there is minimal surrounding stranding, cannot rule out cystitis or bladder wall disease. PELVIC VISCERA: Unremarkable PERITONEUM: No free air or fluid. LYMPH NODES: Borderline enlarged right inguinal lymph nodes measuring up to 1.2 cm short axis. VASCULAR:Vascular calcifications without evidence of aneurysm. BONES, ABDOMINAL WALL AND SOFT TISSUES: Age-appropriate changes of the spine and skeletal system, no destructive osteolytic or osteosclerotic bone lesion found CT/CT abdomen pelvis wo con IMPRESSION: Limited noncontrasted study. 1. Heterogeneously thickened urinary bladder wall, along with mild surrounding fat stranding raising concern for possible cystitis versus bladder wall disease, clinical correlation and follow-up recommended. 2. Heavy sigmoid diverticulosis without evidence of acute diverticulitis. 3. Status post cholecystectomy. 4. There are numerous bilateral renal cysts, renal cortical thinning suggests chronic medical renal disease 5. Mildly enlarged inguinal lymph nodes nonspecific might be reactive.
--- NOTE | 2020-12-24 11:35 | ECG_ITS ---
Test Reason : VOMITTING WEAKNESS Blood Pressure : / mmHG Vent. Rate : 069 BPM Atrial Rate : 069 BPM P-R Int : 158 ms QRS Dur : 098 ms QT Int : 438 ms P-R-T Axes : 048 -45 022 degrees QTc Int : 469 ms Normal sinus rhythm Possible Left atrial enlargement Left anterior fascicular block Abnormal ECG When compared with ECG of 14-JUL-2020 10:25, Nonspecific T wave abnormality, improved in Inferior leads Nonspecific T wave abnormality no longer evident in Lateral leads Referred By: Hoang Moreno Electronically Signed By:BARB FOX
--- NOTE | 2020-12-24 11:42 | ED_ITS ---
HPI - Weakness General Chief complaint: Nausea/Vomiting/Diarrhea Stated complaint: weakness Time Seen by Provider: 12/24/20 11:41 Source: EMS Mode of arrival: EMS Limitations: language barrier History of Present Illness HPI Narrative: EMS states that the patient unable to get out of bed, patient has diabetes and HTN unknown last dialysis. patient vomiting on arrival. The neighbor called the ambulance. The neighbor heard his alarm. The patient goes to dialysis Wednesday, Wednesday and . Patient was unable to take his blood pressure medications because he is having vomiting and diarrhea. Vomiting and diarrhea started this afternoon. patient is too weak to stand. He denies fever. three or 4 days ago the patient fell causing a large bruise to his left hip MD Complaint: generalized weakness Onset (ago): hour(s) Location: generalized Migration: none Severity: moderate Relieving factors: none Associated symptoms: denies other symptoms Related Data Home Medications Medication Instructions Recorded Confirmed aspirin 81 mg tablet,delayed 81 mg PO DAILY 08/07/20 12/24/20 release (Adult Low Dose Aspirin) clonidine HCl 0.2 mg tablet 0.2 mg PO TID 08/07/20 12/24/20 gabapentin 100 mg capsule 100 mg PO BEDTIME 08/07/20 12/24/20 pantoprazole 40 mg tablet,delayed 40 mg PO DAILY 08/07/20 12/24/20 release sertraline 100 mg tablet 100 mg PO DAILY 08/07/20 12/24/20 atorvastatin 40 mg tablet 40 mg PO DAILY 12/03/20 12/24/20 insulin degludec 200 unit/mL (3 24 unit SUBCUT BEDTIME 12/03/20 12/24/20 mL) subcutaneous pen nifedipine 90 mg tablet,extended 90 mg PO BID 12/03/20 12/24/20 release 24 hr acetaminophen 650 mg 1 tab PO Q8H PRN 12/24/20 12/24/20 tablet,extended release carvedilol 12.5 mg tablet (Coreg) 12.5 mg PO BIDWM 12/24/20 12/24/20 isosorbide mononitrate 30 mg 1 tab PO QAM 12/24/20 12/24/20 tablet,extended release 24 hr sevelamer carbonate 800 mg tablet 2,400 mg PO QIDWMHS 12/24/20 12/24/20 Previous Rx's Medication Instructions Recorded ticagrelor 90 mg tablet (Brilinta) 90 mg PO BID 90 Days #180 tab 08/22/20 Allergies Allergy/AdvReac Type Severity Reaction Status Date / Time No Known Allergies Allergy Unverified 01/25/20 16:50 [No Known Allergies*] Review of Systems Constitutional: Constitutional: Reports no additional constitutional complaints Eyes: Eyes: Reports no additional eye complaints ENT: Denies dizziness Cardiovascular: Cardiovascular: Reports no additional cardiovascular complaints Respiratory: Respiratory: Reports as per HPI Gastrointestinal: Gastrointestinal: Reports no additional gastrointestinal complaints Musculoskeletal: Musculoskeletal: Reports no additional musculoskeletal complaints Integumentary/Breasts: Skin/Breast: Denies rash Neurologic: Reports system reviewed and no additional complaints, except as d ocumented, Denies dizziness and Denies Sensory deficit (Neuro) Psychiatric: Psychiatric: Denies anxiety [facility] Past Medical History Medical History (HFpEF) heart failure with preserved ejection fraction CAD (coronary artery disease) Diabetes mellitus End stage renal disease Frailty HTN (hypertension) Ischemic cardiomyopathy Surgical History Hx of cardiac cath Hx of cholecystectomy Hx of colonoscopy Hx of knee surgery Stented coronary artery Family History Family History Father No problems noted. Mother Diabetes Social History Social History Alcohol intake: former Advance Directives: No Advance Directives Information Provided: Yes Physical Exam Vital Signs: Vital Signs: Last Vital Signs Temp 97.6 F 12/24/20 12:42 Pulse 58 12/24/20 14:25 Resp 18 12/24/20 14:25 BP 189/79 H 12/24/20 14:27 Pulse Ox 93 12/24/20 14:25 Body Mass Index 30.4 Const: Other: Chronically ill appearing male Nutritional Appearance: average body habitus Orientation/consciousness: oriented to person and patient oriented x3 Limitations: no limitations HENMT: Head: Yes normal to inspection Ears: external ears normal General nose exam: Normal external nose present Mouth: Normal oral and palatal mucosa present and oropharynx normal Throat: Yes posterior oropharynx normal Eyes: Other: periorbital edema Neck: Other: supple Neck: Yes normal visual inspection Chest: Chest palpation & inspection: normal inspection of the chest Resp: Auscultation: clear to auscultation bilaterally Cardio: Jugular venous distension: no JVD Rate: regular rate Rhythm: regular rhythm Heart sounds: S1 normal heart sound present and S2 normal heart sound present GI: Inspection: Yes normal to inspection Palpation (GI): Soft to palpation, nontender and No hepatosplenomegaly present Auscultation: normal bowel sounds : General: Yes no CVA tenderness Back/Spine/Pelvis: Back: no CVA tenderness Skin: Other: large left hip hematoma Neuro: Other: patient is symmetric no evidence of stroke General: oriented to person and patient oriented x3 Cranial nerves: Yes CN's II-XII intact bilaterally Motor exam (neuro): 5/5 motor strength present throughout Sensory Exam: No Sensory deficit (Neuro) Extrem: General: Yes normal to inspection Psych: Appearance: grossly normal Course Reevaluation(s) Reevaluation #1: Patient with a K of 7.2, EKG does not show evidence of hyperkalemia, HCO3 20 will arrange for admission and dialysis Time: 13:28 Reevaluation #2: Dr. Castaneda wants glucose, insulin and calcium Time: 14:47 Reevaluation #3: patient going to dialysis Time: 15:12 Additional Reevaluation(s): I spent 40 minutes of critical care, with interventions, assessments, speaking to patient, consultants, and family. MDM - Weakness Lab Data Result diagrams: 12/24/20 12:21 12/24/20 12:21 Labs: Lab Results 12/24/20 12/24/20 12/24/20 Range/Units 12:21 12:21 12:21 WBC 10.4 (4.8-10.8) X10*3/uL RBC 3.51 L (4.60-5.80) X10*6/uL Hgb 10.9 L (14.0-18.0) g/dl Hct 34.7 L (42-52) % MCV 98.9 H (80-98) fL MCH 31.1 (27.0-33.0) pg MCHC 31.4 (31.0-36.0) g/dl RDW 15.3 (11.0-16.0) % Plt Count 197 (160-400) X10*3/uL MPV 10.3 (9.4-12.4) fL Immature Gran % (Auto) 0.5 H (0.0-0.4) % Neut % (Auto) 87.0 H (45-73) % Lymph % (Auto) 8.6 L (20-40) % [place] % (Auto) 3.1 (2-11) % Eos % (Auto) 0.3 (0-4) % Baso % (Auto) 0.5 (0-2) % Lymph # (Auto) 0.9 L (1.2-4.9) X10*3/uL [place] # (Auto) 0.3 (0.1-1.2) X10*3/uL Eos # (Auto) 0.0 (0.0-0.4) X10*3/uL Baso # (Auto) 0.1 (0.0-0.2) X10*3/uL Abs Immat Gran (auto) 0.05 H (0.00-0.03) X10*3/uL Absolute Neuts (auto) 9.1 H (2.0-8.3) X10*3/uL Absolute Nucleated RBC 0.000 (0.0-0.012) X10*3/uL Nucleated RBC % (auto) 0.0 (0.0-0.2) /100WBC Sodium 140 (135-145) mmol/L Potassium 7.2 H* D (3.3-5.1) mmol/L Chloride 103 (96-108) mmol/L Carbon Dioxide 20 L (22-29) mmol/L Anion Gap 24 H (12-20) BUN 57 H (9-16) mg/dL Creatinine 10.25 H* (0.5-1.4) mg/dL Estim Creat Clear Calc 7.9 Estimated GFR 5 POC Glucose (60-115) mg/dL Random Glucose 95 D (60-115) mg/dL Calcium 8.3 L (8.4-10.2) mg/dL Troponin I High Sens 26.5 (<3.5-35.0) ng/L Coronavirus (PCR) (Negative) Influenza Type A (PCR) (Negative) Influenza Type B (PCR) (Negative) RSV RNA Qual (PCR) (Negative) 12/24/20 12/24/20 Range/Units 13:41 15:07 WBC (4.8-10.8) X10*3/uL RBC (4.60-5.80) X10*6/uL Hgb (14.0-18.0) g/dl Hct (42-52) % MCV (80-98) fL MCH (27.0-33.0) pg MCHC (31.0-36.0) g/dl RDW (11.0-16.0) % Plt Count (160-400) X10*3/uL MPV (9.4-12.4) fL Immature Gran % (Auto) (0.0-0.4) % Neut % (Auto) (45-73) % Lymph % (Auto) (20-40) % [place] % (Auto) (2-11) % Eos % (Auto) (0-4) % Baso % (Auto) (0-2) % Lymph # (Auto) (1.2-4.9) X10*3/uL [place] # (Auto) (0.1-1.2) X10*3/uL Eos # (Auto) (0.0-0.4) X10*3/uL Baso # (Auto) (0.0-0.2) X10*3/uL Abs Immat Gran (auto) (0.00-0.03) X10*3/uL Absolute Neuts (auto) (2.0-8.3) X10*3/uL Absolute Nucleated RBC (0.0-0.012) X10*3/uL Nucleated RBC % (auto) (0.0-0.2) /100WBC Sodium (135-145) mmol/L Potassium (3.3-5.1) mmol/L Chloride (96-108) mmol/L Carbon Dioxide (22-29) mmol/L Anion Gap (12-20) BUN (9-16) mg/dL Creatinine (0.5-1.4) mg/dL Estim Creat Clear Calc Estimated GFR POC Glucose 84 (60-115) mg/dL Random Glucose (60-115) mg/dL Calcium (8.4-10.2) mg/dL Troponin I High Sens (<3.5-35.0) ng/L Coronavirus (PCR) NEGATIVE (Negative) Influenza Type A (PCR) NEGATIVE (Negative) Influenza Type B (PCR) NEGATIVE (Negative) RSV RNA Qual (PCR) NEGATIVE (Negative) Discharge Plan Discharge Clinical Impression: End stage renal disease Vomiting Qualifiers: Vomiting type: bilious vomiting Nausea presence: with nausea Qualified Code(s): R11.14 - Bilious vomiting Patient Disposition: Admitted As Inpatient
[2020-12-24] MEDS: ondansetron HCL 4 MG/2 ML VIAL IVPUSH ×2 (12:03→17:59)
[2020-12-24 12:28] LABS: MANUAL DIFF FLAG NO
[2020-12-24 12:34] LABS: Basophils Absolute Auto 0.1 X10*3/uL (0.0-0.2); Basophils Percent Auto 0.5 % (0-2); Eosinophils Percent Auto 0.3 % (0-4); Hematocrit 34.7 % (42-52); Hemoglobin 10.9 g/dl (14.0-18.0); Imm Gran Abs Auto 0.05 X10*3/uL (0.00-0.03); Imm Gran Pct Auto 0.5 % (0.0-0.4); Lymphocytes Absolute Auto 0.9 X10*3/uL (1.2-4.9); Lymphocytes Percent Auto 8.6 % (20-40); Mean Corpuscular HGB Conc 31.4 g/dl (31.0-36.0); Mean Corpuscular Hemoglobin 31.1 pg (27.0-33.0); Mean Corpuscular Volume 98.9 fL (80-98); Mean Platelet Volume 10.3 fL (9.4-12.4); Monocytes Absolute Auto 0.3 X10*3/uL (0.1-1.2); Monocytes Percent Auto 3.1 % (2-11); Neutrophils Absolute Auto 9.1 X10*3/uL (2.0-8.3); Platelet Count 197 X10*3/uL (160-400); Red Blood Count 3.51 X10*6/uL (4.60-5.80); Red Cell Distribution Width 15.3 % (11.0-16.0); White Blood Count 10.4 X10*3/uL (4.8-10.8)
[2020-12-24] MEDS: Ticagrelor 90 MG TABLET PO ×2 (12:58→23:18)
[2020-12-24] MEDS: carvediloL 12.5 MG TABLET PO (12:58)
[2020-12-24] MEDS: Isosorbide Mononitrate 60 MG TAB.ER.24H PO (12:58)
[2020-12-24] MEDS: cloNIDine HCL 0.2 MG TABLET PO ×2 (12:58→23:18)
[2020-12-24 13:03] LABS: Troponin-I High Sensitivity 26.5 ng/L (<3.5-35.0)
[2020-12-24 13:25] LABS: Anion Gap 24 (12-20); Blood Urea Nitrogen 57 mg/dL (9-16); Calcium 8.3 mg/dL (8.4-10.2); Carbon Dioxide 20 mmol/L (22-29); Chloride 103 mmol/L (96-108); Creatinine Clr Calc Pharmacy 7.9; Estimated Glomerular Filt Rate 5; Glucose Random 95 mg/dL (60-115); Potassium 7.2 mmol/L (3.3-5.1); Sodium 140 mmol/L (135-145)
--- NOTE | 2020-12-24 13:48 | PC.NURSE ---
pt resting in bed with eyes closed. pt aware of plan to be admit to the hospital.
--- NOTE | 2020-12-24 14:44 | PHA.MEDREC ---
Pharmacy Consult ? Medication Reconciliation Pharmacy has completed the medication reconciliation. Patient report he does not know what the names are of the medications. He get his medications delivered by [facility]. Claim history has all recent fills. Gabriela Hanson, AugustoD
[2020-12-24] MEDS: Calcium Chloride 1 GM/10 ML SYRINGE IVPUSH (14:55)
[2020-12-24 15:04] LABS: Influenza A PCR NEGATIVE (Negative); Influenza B PCR NEGATIVE (Negative); Resp Syncy Virus RNA Qual PCR NEGATIVE (Negative); SARS COV2 PCR INHOUSE NEGATIVE (Negative)
[2020-12-24] MEDS: Insulin Regular, Human 100 UNIT/ML 3 ML VIAL 10 UNIT IVPUSH (15:08)
[2020-12-24 15:11] LABS: Glucose, Whole Blood 84 mg/dL (60-115)
--- NOTE | 2020-12-24 16:01 | P.HPHOSP_ITS ---
History of Present Illness Date of Service: 12/24/20 Chief Complaint: A nausea, vomiting, diarrhea A 65 years old Pashto speaker patient with PMH of diabetes, HTN, and dialysis who presents to the hospital by EMS as his neighbor hold for an ambulance when he is alone. The patient is not the best historian but reports he had dialysis on Wednesday and he was doing fairly okay. Start to feel of yesterday night and this morning started having nausea vomiting and diarrhea. He could not remember any specific thing he ate. He went to the bathroom almost 6 times since the morning with watery diarrhea. This morning he was unable to take his blood pressure medications as a result of nausea and vomiting. His blood pressure was noted to be significantly elevated during the emergency visit requiring IV and oral medications. X-ray was consistent with increase congestion To be admitted for further evaluation and treatment. Review of Systems Review of Systems: No fever, chills but reports generalized weakness No chest pain, palpitation No shortness of breath or coughing Denies abdominal pain but having nausea, vomiting and multiple episodes of diarrhea No urinary symptoms No any rash or wounds PMFSH Medical History (HFpEF) heart failure with preserved ejection fraction CAD (coronary artery disease) Diabetes mellitus End stage renal disease Frailty HTN (hypertension) Ischemic cardiomyopathy Family History Father No problems noted. Mother Diabetes Surgical History Hx of cardiac cath Hx of cholecystectomy Hx of colonoscopy Hx of knee surgery Stented coronary artery Social History Alcohol intake: former Advance Directives: No Advance Directives Information Provided: Yes Meds Allergies Allergy/AdvReac Type Severity Reaction Status Date / Time No Known Allergies Allergy Unverified 01/25/20 16:50 [No Known Allergies*] Active Medications: Current Medications Generic Name Dose Route Start Last Admin Trade Name Freq PRN Reason Stop Dose Admin Acetaminophen 650 mg 12/24/20 15:49 Acetaminophen 325 Mg Tablet PO Q6H PRN Pain, Mild (Pain Scale 1-3) Aspirin 81 mg 12/25/20 09:00 Aspirin Enteric Coated 81 Mg Tablet.Dr PO DAILY [facility] Atorvastatin Calcium 40 mg 12/25/20 09:00 Atorvastatin Calcium 40 Mg Tablet PO DAILY [facility] Carvedilol 12.5 mg 12/24/20 17:00 Carvedilol 12.5 Mg Tablet PO BIDWM [facility] Protocol Clonidine HCl 0.2 mg 12/24/20 21:00 Clonidine Hcl 0.2 Mg Tablet PO TID [facility] Protocol Gabapentin 100 mg 12/24/20 21:00 Gabapentin 100 Mg Capsule PO BEDTIME [facility] Insulin Glargine 15 unit 12/25/20 09:00 Insulin Glargine,Hum.Rec.Anlog 100 Unit/Ml 10 Ml Vial SUBCUT DAILY [facility] Insulin Human Lispro 0 unit 12/24/20 16:30 Insulin Lispro 100 Unit/Ml 3 Ml Vial SUBCUT QIDACHS [facility] Protocol Isosorbide Mononitrate 30 mg 12/24/20 16:00 Isosorbide Mononitrate 30 Mg Tab.Er.24h PO QAM [facility] Protocol Nifedipine 90 mg 12/24/20 21:00 Nifedipine Er 90 Mg Tab.Er.24 PO BID [facility] Protocol Ondansetron HCl 4 mg 12/24/20 15:49 Ondansetron Hcl 4 Mg/2 Ml Vial IVPUSH Q8H PRN Nausea and Vomiting Pharmacy Consult 1 each 12/24/20 13:30 Consult Rx Perform Med Rec MISCELLANE ONCE PRN Consult order Sertraline HCl 100 mg 12/25/20 09:00 Sertraline Hcl 100 Mg Tablet PO DAILY [facility] Sevelamer Carbonate 2,400 mg 12/24/20 17:00 Sevelamer Carbonate Tablet 800 Mg Tablet PO QIDWMHS [facility] Sodium Chloride 3 ml 12/24/20 16:00 0.9 % Sodium Chloride Flush 3 Ml Syringe IVFLUSH QSHIFT [facility] Ticagrelor 90 mg 12/24/20 21:00 Ticagrelor 90 Mg Tablet PO BID [facility] Home Medications Medication Instructions Recorded Confirmed Last Taken Type aspirin 81 mg tablet,delayed 81 mg PO DAILY 08/07/20 12/24/20 Unknown History release (Adult Low Dose Aspirin) clonidine HCl 0.2 mg tablet 0.2 mg PO TID 08/07/20 12/24/20 Unknown History gabapentin 100 mg capsule 100 mg PO BEDTIME 08/07/20 12/24/20 Unknown History pantoprazole 40 mg tablet,delayed 40 mg PO DAILY 08/07/20 12/24/20 Unknown History release sertraline 100 mg tablet 100 mg PO DAILY 08/07/20 12/24/20 Unknown History atorvastatin 40 mg tablet 40 mg PO DAILY 12/03/20 12/24/20 Unknown History insulin degludec 200 unit/mL (3 24 unit SUBCUT BEDTIME 12/03/20 12/24/20 Unknown History mL) subcutaneous pen nifedipine 90 mg tablet,extended 90 mg PO BID 12/03/20 12/24/20 Unknown History release 24 hr acetaminophen 650 mg 1 tab PO Q8H PRN 12/24/20 12/24/20 Unknown History tablet,extended release carvedilol 12.5 mg tablet (Coreg) 12.5 mg PO BIDWM 12/24/20 12/24/20 Unknown History isosorbide mononitrate 30 mg 1 tab PO QAM 12/24/20 12/24/20 Unknown History tablet,extended release 24 hr sevelamer carbonate 800 mg tablet 2,400 mg PO QIDWMHS 12/24/20 12/24/20 Unknown History Physical Exam Vital Signs and Narrative: Vital Signs: Last Vital Signs Temp 97.6 F 12/24/20 12:42 Pulse 58 12/24/20 14:25 Resp 18 12/24/20 14:25 BP 189/79 H 12/24/20 14:27 Pulse Ox 93 12/24/20 14:25 Body Mass Index 30.4 Const: Other: Constitutional : Alert, oriented to self and place, looks ill and in mild distress Neck : Normal inspection, Supple Cardiovascular : RRR, S1 S2, no lower extremity edema Respiratory : Fares bilateral air entry, basal bilateral fine crackles, wheezes or rhonchi Gastrointestinal: soft, lax, Normal bowel sounds, Non tender Skin : Warm, Dry, fistula in place Neurological : Alert, interactive, No focal deficit Results Labs CBC and Chem 7: 12/24/20 12:21 12/24/20 12:21 Labs: Laboratory Results - last 24 hr 12/24/20 12/24/20 12/24/20 12:21 12:21 12:21 MCV 98.9 H MCH 31.1 MCHC 31.4 RDW 15.3 Plt Count 197 MPV 10.3 Immature Gran % (Auto) 0.5 H Neut % (Auto) 87.0 H Lymph % (Auto) 8.6 L [place] % (Auto) 3.1 Eos % (Auto) 0.3 Baso % (Auto) 0.5 Lymph # (Auto) 0.9 L [place] # (Auto) 0.3 Eos # (Auto) 0.0 Baso # (Auto) 0.1 Abs Immat Gran (auto) 0.05 H Absolute Neuts (auto) 9.1 H Absolute Nucleated RBC 0.000 Nucleated RBC % (auto) 0.0 Anion Gap 24 H Estim Creat Clear Calc 7.9 Estimated GFR 5 POC Glucose Random Glucose 95 D Calcium 8.3 L Troponin I High Sens 26.5 Coronavirus (PCR) Influenza Type A (PCR) Influenza Type B (PCR) RSV RNA Qual (PCR) 12/24/20 12/24/20 13:41 15:07 MCV MCH MCHC RDW Plt Count MPV Immature Gran % (Auto) Neut % (Auto) Lymph % (Auto) [place] % (Auto) Eos % (Auto) Baso % (Auto) Lymph # (Auto) [place] # (Auto) Eos # (Auto) Baso # (Auto) Abs Immat Gran (auto) Absolute Neuts (auto) Absolute Nucleated RBC Nucleated RBC % (auto) Anion Gap Estim Creat Clear Calc Estimated GFR POC Glucose 84 Random Glucose Calcium Troponin I High Sens Coronavirus (PCR) NEGATIVE Influenza Type A (PCR) NEGATIVE Influenza Type B (PCR) NEGATIVE RSV RNA Qual (PCR) NEGATIVE Imaging Radiologist's Impressions: Impressions Chest X-Ray 12/24/20 14:05 IMPRESSION: 1. There is mild pulmonary vascular congestion, without overt congestive heart clear. 2. There is mild elevation the right hemidiaphragm, with volume loss. 3. No focal infiltrate or effusion is seen. Assessment and Plan (1) Diarrhea: Status: Acute (2) Vomiting: Qualifiers: Nausea presence: with nausea Vomiting type: bilious vomiting Qualified Code(s): R11.14 - Bilious vomiting Status: Acute (3) Fluid overload: Status: Acute (4) ESRD needing dialysis: Status: Acute A 65 years old Pashto speaker patient with PMH of diabetes, HTN, and dialysis who presents to the hospital by EMS as his neighbor called for an ambulance when the patient morning called off. Diarrhea, vomiting Could be secondary to gastroenteritis No significant tenderness on exam To check C diff, stool wbc's To check CT scan Hold antibiotics for the time being Hold on Imodium for now Fluid overload ESRD on HD CXR showing fluid congestion Plan for dialysis today Hyperkalemia Potassium of 7.2 Received dextrose and insulin Plan for urgent dialysis today Diabetes type 2 Hold p.o. meds SSI Start Lantus 15 units instead of his home detemir Continue rest of his home medications DVT PPX Heparin Quality Stroke Does the patient have a stroke diagnosis?: No VTE Prior VTE?: No VTE Risk Level:: Medical - moderate - high VTE Device Contraindication: Treatment Not Indicated VTE Drug Contraindication: N/A - Med Ordered
[2020-12-24 16:04] LABS: Glucose, Whole Blood 137 mg/dL (60-115)
[2020-12-24] MEDS: Isosorbide Mononitrate 30 MG TAB.ER.24H PO (16:22)
[2020-12-24] MEDS: 0.9 % Sodium Chloride Flush 3 ML SYRINGE IVFLUSH (16:22)
[2020-12-24 17:22] LABS: Leukocytes Stool Qualitative NEGATIVE (NEGATIVE)
[2020-12-24 17:48] LABS: CDiff Gene PCR NEGATIVE (Negative)
[2020-12-24 21:45] LABS: Glucose, Whole Blood 89 mg/dL (60-115)
[2020-12-24] MEDS: cefTRIAXone sodium 1 GM in 0.9 % Sodium Chloride 50 ML IV (23:01)
[2020-12-24 23:13] LABS: Anion Gap 22 (12-20); Carbon Dioxide 21 mmol/L (22-29); Chloride 99 mmol/L (96-108); Potassium 4.6 mmol/L (3.3-5.1); Sodium 137 mmol/L (135-145)
[2020-12-24] MEDS: Gabapentin 100 MG CAPSULE PO (23:18)
[2020-12-24] MEDS: Sevelamer Carbonate Tablet 800 MG TABLET 2400 MG PO (23:19)
[2020-12-24] MEDS: NIFEdipine ER 90 MG TAB.ER.24 PO (23:19)
[2020-12-25] VITALS (9 sets, daily range): BP systolic 78–139; BP diastolic 40–65; PULSE 58–64; RESP 18–20; TEMP 36.1–36.7; O2SAT 97–99
[2020-12-25] MEDS: 0.9 % Sodium Chloride Flush 3 ML SYRINGE IVFLUSH ×4 (01:23→22:10)
[2020-12-25 07:29] LABS: Hemoglobin 9.9 g/dl (14.0-18.0); Mean Corpuscular HGB Conc 31.9 g/dl (31.0-36.0); Mean Corpuscular Hemoglobin 31.5 pg (27.0-33.0); Mean Corpuscular Volume 98.7 fL (80-98); Platelet Count 213 X10*3/uL (160-400); Red Blood Count 3.14 X10*6/uL (4.60-5.80); Red Cell Distribution Width 15.3 % (11.0-16.0); White Blood Count 8.3 X10*3/uL (4.8-10.8)
[2020-12-25 07:33] LABS: Glucose, Whole Blood 85 mg/dL (60-115)
[2020-12-25] MEDS: NIFEdipine ER 90 MG TAB.ER.24 PO (08:12)
[2020-12-25] MEDS: Sevelamer Carbonate Tablet 800 MG TABLET 2400 MG PO ×4 (08:12→22:09)
[2020-12-25] MEDS: Aspirin Enteric Coated 81 MG TABLET.DR PO (08:13)
[2020-12-25] MEDS: Isosorbide Mononitrate 30 MG TAB.ER.24H PO (08:13)
[2020-12-25] MEDS: carvediloL 12.5 MG TABLET PO (08:13)
[2020-12-25] MEDS: Sertraline HCL 100 MG TABLET PO (08:13)
[2020-12-25] MEDS: cloNIDine HCL 0.2 MG TABLET PO (08:14)
[2020-12-25] MEDS: Insulin Glargine,Hum.rec.anlog 100 UNIT/ML 10 ML VIAL 15 UNIT SUBCUT (08:14)
[2020-12-25] MEDS: Ticagrelor 90 MG TABLET PO ×2 (08:14→22:09)
[2020-12-25 08:29] LABS: Blood Urea Nitrogen 30 mg/dL (9-16); Calcium 8.1 mg/dL (8.4-10.2); Creatinine Clr Calc Pharmacy 11.6; Estimated Glomerular Filt Rate 8; Glucose Random 86 mg/dL (60-115)
[2020-12-25 08:40] LABS: Anion Gap 22 (12-20); Carbon Dioxide 20 mmol/L (22-29); Chloride 98 mmol/L (96-108); Potassium 5.8 mmol/L (3.3-5.1); Sodium 134 mmol/L (135-145)
--- NOTE | 2020-12-25 09:10 | MHC.CM.PN ---
CM met with Patient at bedside and addressed IMM with him, providing him with the original and placing a copy on the chart. CM also spoke with Daughter/HCP/Felicity at [phone]. Patient lives alone in an apartment and he believes he is active with [facility] (Felicity was not sure of the [facility] either). Patient receives [address] [employer] hours per 2 week period of time and he attends HD Q , , Sat at [facility] on [facility] in [place]. Patient has arranged transportation to and from HD.PCP is DR. Hadley. Patient's goal for dc is to return home and resume his present services and CM has initiated and will follow for dc planning.
[2020-12-25 10:59] LABS: Glucose, Whole Blood 184 mg/dL (60-115)
--- NOTE | 2020-12-25 11:09 | PC.NURSE ---
Skin assessment completed today. Patient has scratches to nose and face. Blanchable redness to coccyx/buttocks present on admission. Patient is being turned and repositioned q 2 h. Patient is taken care of by granddaughter at home who is a [employer]. She reassures that patient is turned. An air pad seat cushion has been implemented when sitting in recliner and he has an airloss mattress. No other skin issues noted.
--- NOTE | 2020-12-25 11:43 | P.CONNP_ITS ---
History of Present Illness Reason for Consult Consult date: 12/24/20 Reason for consult: esrd Requesting physician: Prosper Siddiqi Chief Complaint Chief complaint: diarrhea, lethargy History of Present Illness Narrative: ESRD TTS at [facility] HD unit adm with diarrhea and gen weakness, last HD sat and today in ER K 7.2; got med tx in er and will get urgent HD Tammie CP/SOB Review of Systems Review of Systems No fever, chills but reports generalized weakness No chest pain, palpitation No shortness of breath or coughing Denies abdominal pain but having nausea, vomiting and multiple episodes of diarrhea No urinary symptoms No any rash or wounds Constitutional: Reports no additional constitutional complaints Eyes: Reports no additional eye complaints Denies dizziness Cardiovascular: Reports no additional cardiovascular complaints Respiratory: Reports as per HPI Gastrointestinal: Reports no additional gastrointestinal complaints Musculoskeletal: Reports no additional musculoskeletal complaints Skin/Breast: Denies rash Reports system reviewed and no additional complaints, except as documented, Denies dizziness and Denies Sensory deficit (Neuro) Psychiatric: Denies anxiety PMFSH Past Medical History Medical History (HFpEF) heart failure with preserved ejection fraction CAD (coronary artery disease) Diabetes mellitus End stage renal disease Frailty HTN (hypertension) Ischemic cardiomyopathy Family History Family History Father No problems noted. Mother Diabetes Surgical History Surgical History Hx of cardiac cath Hx of cholecystectomy Hx of colonoscopy Hx of knee surgery Stented coronary artery Social History Social History Household Members: None Housing: Apartment Do you presently have visiting nurse or other home services: No Alcohol intake: former Patient Tobacco Use Status: Never used Tobacco Use of substances other than those prescribed or required for medical reasons: No Currently Displaying Signs/Symptoms of Drug Intoxication Withdrawal: No Have you been hit, kicked, punched, or otherwise hurt by someone within the past year? If so, by whom?: No Do you feel safe in your current relationship?: Yes Is there a partner from a previous relationship who is making you feel unsafe now?: No Spiritual Healthcare Practices: faith Advance Directives: No Advance Directives Information Provided: Yes Do you have thoughts of harming others: None Do you have a plan to hurt others: No Plan Recently lost weight without trying: No Nutrition Risks: No Nutritional Risk Poor oral hygiene: No service: No Current occupational status: disabled Meds Allergies Allergy/AdvReac Type Severity Reaction Status Date / Time No Known Allergies Allergy Unverified 01/25/20 16:50 [No Known Allergies*] Active Medications: Current Medications Generic Name Dose Route Start Last Admin Trade Name Freq PRN Reason Stop Dose Admin Acetaminophen 650 mg 12/24/20 15:49 Acetaminophen 325 Mg Tablet PO Q6H PRN Pain, Mild (Pain Scale 1-3) Aspirin 81 mg 12/25/20 09:00 12/25/20 08:13 Aspirin Enteric Coated 81 Mg Tablet.Dr PO 81 mg DAILY MIREILLE Administration Atorvastatin Calcium 40 mg 12/25/20 21:00 Atorvastatin Calcium 40 Mg Tablet PO BEDTIME MIREILLE Carvedilol 12.5 mg 12/24/20 17:00 12/25/20 08:13 Carvedilol 12.5 Mg Tablet PO 12.5 mg BIDWM MIREILLE Administration Protocol Clonidine HCl 0.2 mg 12/24/20 21:00 12/25/20 08:14 Clonidine Hcl 0.2 Mg Tablet PO 0.2 mg TID MIREILLE Administration Protocol Gabapentin 100 mg 12/24/20 21:00 12/24/20 23:18 Gabapentin 100 Mg Capsule PO 100 mg BEDTIME MIREILLE Administration Ceftriaxone Sodium 1 gm/ 50 mls @ 100 mls/hr 12/24/20 23:00 12/24/20 23:41 Sodium Chloride IV Infused Q24H MIREILLE Infusion Insulin Glargine 15 unit 12/25/20 09:00 12/25/20 08:14 Insulin Glargine,Hum.Rec.Anlog 100 Unit/Ml 10 Ml Vial SUBCUT 15 unit DAILY MIREILLE Administration Insulin Human Lispro 0 unit 12/24/20 16:30 12/25/20 07:38 Insulin Lispro 100 Unit/Ml 3 Ml Vial SUBCUT Not Given QIDACHS [facility] Protocol Isosorbide Mononitrate 30 mg 12/24/20 16:00 12/25/20 08:13 Isosorbide Mononitrate 30 Mg Tab.Er.24h PO 30 mg DAILY MIREILLE Administration Protocol Loperamide HCl 2 mg 12/25/20 09:12 Loperamide Hcl 2 Mg Capsule PO Q4H PRN diarrhea Nifedipine 90 mg 12/24/20 21:00 12/25/20 08:12 Nifedipine Er 90 Mg Tab.Er.24 PO 90 mg BID MIREILLE Administration Protocol Ondansetron HCl 4 mg 12/24/20 15:49 12/24/20 17:59 Ondansetron Hcl 4 Mg/2 Ml Vial IVPUSH 4 mg Q8H PRN Administration Nausea and Vomiting Pharmacy Consult 1 each 12/24/20 13:30 Consult Rx Perform Med Rec MISCELLANE ONCE PRN Consult order Sertraline HCl 100 mg 12/25/20 09:00 12/25/20 08:13 Sertraline Hcl 100 Mg Tablet PO 100 mg DAILY MIRE[place] Administration Sevelamer Carbonate 2,400 mg 12/24/20 17:00 12/25/20 08:12 Sevelamer Carbonate Tablet 800 Mg Tablet PO 2,400 mg QIDWMHS [place] Administration Sodium Chloride 3 ml 12/24/20 16:00 12/25/20 08:00 0.9 % Sodium Chloride Flush 3 Ml Syringe IVFLUSH 3 ml QSHIFT [facility] Administration Ticagrelor 90 mg 12/24/20 21:00 12/25/20 08:14 Ticagrelor 90 Mg Tablet PO 90 mg BID MIRE[place] Administration Home Medications Medication Instructions Recorded Confirmed Last Taken Type aspirin 81 mg tablet,delayed 81 mg PO DAILY 08/07/20 12/24/20 Unknown History release (Adult Low Dose Aspirin) clonidine HCl 0.2 mg tablet 0.2 mg PO TID 08/07/20 12/24/20 Unknown History gabapentin 100 mg capsule 100 mg PO BEDTIME 08/07/20 12/24/20 Unknown History pantoprazole 40 mg tablet,delayed 40 mg PO DAILY 08/07/20 12/24/20 Unknown History release sertraline 100 mg tablet 100 mg PO DAILY 08/07/20 12/24/20 Unknown History atorvastatin 40 mg tablet 40 mg PO DAILY 12/03/20 12/24/20 Unknown History insulin degludec 200 unit/mL (3 24 unit SUBCUT BEDTIME 12/03/20 12/24/20 Unknown History mL) subcutaneous pen nifedipine 90 mg tablet,extended 90 mg PO BID 12/03/20 12/24/20 Unknown History release 24 hr acetaminophen 650 mg 1 tab PO Q8H PRN 12/24/20 12/24/20 Unknown History tablet,extended release carvedilol 12.5 mg tablet (Coreg) 12.5 mg PO BIDWM 12/24/20 12/24/20 Unknown History isosorbide mononitrate 30 mg 1 tab PO QAM 12/24/20 12/24/20 Unknown History tablet,extended release 24 hr sevelamer carbonate 800 mg tablet 2,400 mg PO QIDWMHS 12/24/20 12/24/20 Unknown History Physical Exam Vital Signs: Last Vital Signs Temp 96.9 F 12/25/20 11:32 Pulse 58 12/25/20 11:32 Resp 20 12/25/20 11:32 BP 78/40 L 12/25/20 11:32 Pulse Ox 97 12/25/20 11:32 Body Mass Index 30.4 Const Other: Constitutional : Alert, oriented to self and place, looks ill and in mild distress Neck : Normal inspection, Supple Cardiovascular : RRR, S1 S2, no lower extremity edema Respiratory : Fares bilateral air entry, basal bilateral fine crackles, wheezes or rhonchi Gastrointestinal: soft, lax, Normal bowel sounds, Non tender Skin : Warm, Dry, fistula in place Neurological : Alert, interactive, No focal deficit Nutritional Appearance: average body habitus Orientation/consciousness: oriented to person and patient oriented x3 Limitations: no limitations [facility] Head: Yes normal to inspection Ears: external ears normal General nose exam: Normal external nose present Mouth: Normal oral and palatal mucosa present and oropharynx normal Throat: Yes posterior oropharynx normal Eyes Other: periorbital edema Neck Other: supple Neck: Yes normal visual inspection Chest Chest palpation & inspection: normal inspection of the chest Resp Auscultation: clear to auscultation bilaterally Cardio Jugular venous distension: no JVD Rate: regular rate Rhythm: regular rhythm Heart sounds: S1 normal heart sound present and S2 normal heart sound present GI Inspection: Yes normal to inspection Palpation (GI): Soft to palpation, nontender and No hepatosplenomegaly present Auscultation: normal bowel sounds General: Yes no CVA tenderness Back/Spine/Pelvis Back: no CVA tenderness Skin Other: large left hip hematoma Neuro Other: patient is symmetric no evidence of stroke General: oriented to person and patient oriented x3 Cranial nerves: Yes CN's II-XII intact bilaterally Motor exam (neuro): 5/5 motor strength present throughout Sensory Exam: No Sensory deficit (Neuro) Extrem General: Yes normal to inspection Psych Appearance: grossly normal Results Lab Results Result Diagrams: 12/25/20 06:08 12/25/20 06:08 Lab results: Chemistry 12/24/20 12/24/20 12/25/20 12:21 22:27 06:08 Sodium 140 137 134 L Potassium 7.2 H* D 4.6 D 5.8 H D Carbon Dioxide 20 L 21 L 20 L BUN 57 H 30 H Creatinine 10.25 H* 7.01 H* Calcium 8.3 L 8.1 L Hematology 12/24/20 12/25/20 12:21 06:08 WBC 10.4 8.3 Hgb 10.9 L 9.9 L Plt Count 197 213 Assessment and Plan (1) Diarrhea: Status: Acute (2) Vomiting: Qualifiers: Nausea presence: with nausea Vomiting type: bilious vomiting Qualified Code(s): R11.14 - Bilious vomiting Status: Acute (3) Fluid overload: Status: Acute (4) ESRD needing dialysis: Start date: 12/24/20 Status: Acute ESRD: nl TTS HyperK Diarrhea: w/u in progress DM REC: urgent HD on 1 k bath; w/u diarrhea; meds as noted will follow esmer A 65 years 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 Diarrhea, vomiting Could be secondary to gastroenteritis No significant tenderness on exam To check C diff, stool wbc's To check CT scan Hold antibiotics for the time being Hold on Imodium for now Fluid overload ESRD on HD CXR showing fluid congestion Plan for dialysis today Hyperkalemia Potassium of 7.2 Received dextrose and insulin Plan for urgent dialysis today Diabetes type 2 Hold p.o. meds SSI Start Lantus 15 units instead of his home detemir Continue rest of his home medications DVT PPX Heparin Procedures Date of Service Date of Service: 12/24/20
--- NOTE | 2020-12-25 11:49 | PM.PNNEP ---
Subjective Subjective Date of Service: 12/25/20 Principal diagnosis: esrd Interval history: Seen and examied; events noted dizzy this am BP low Physical Exam Vital Signs: Vital Signs: Last Vital Signs Temp 96.9 F 12/25/20 11:32 Pulse 58 12/25/20 11:32 Resp 20 12/25/20 11:32 BP 78/40 L 12/25/20 11:32 Pulse Ox 97 12/25/20 11:32 Body Mass Index 30.4 Const: Other: Constitutional : Alert, oriented to self and place, looks ill and in mild distress Neck : Normal inspection, Supple Cardiovascular : RRR, S1 S2, no lower extremity edema Respiratory : Fares bilateral air entry, basal bilateral fine crackles, wheezes or rhonchi Gastrointestinal: soft, lax, Normal bowel sounds, Non tender Skin : Warm, Dry, fistula in place Neurological : Alert, interactive, No focal deficit Nutritional Appearance: average body habitus Orientation/consciousness: oriented to person and patient oriented x3 Limitations: no limitations HENMT: Head: Yes normal to inspection Ears: external ears normal General nose exam: Normal external nose present Mouth: Normal oral and palatal mucosa present and oropharynx normal Throat: Yes posterior oropharynx normal Eyes: Other: periorbital edema Neck: Other: supple Neck: Yes normal visual inspection Chest: Chest palpation & inspection: normal inspection of the chest Resp: Auscultation: clear to auscultation bilaterally Cardio: Jugular venous distension: no JVD Rate: regular rate Rhythm: regular rhythm Heart sounds: S1 normal heart sound present and S2 normal heart sound present GI: Inspection: Yes normal to inspection Palpation (GI): Soft to palpation, nontender and No hepatosplenomegaly present Auscultation: normal bowel sounds : General: Yes no CVA tenderness Back/Spine/Pelvis: Back: no CVA tenderness Skin: Other: large left hip hematoma Neuro: Other: patient is symmetric no evidence of stroke General: oriented to person and patient oriented x3 Cranial nerves: Yes CN's II-XII intact bilaterally Motor exam (neuro): 5/5 motor strength present throughout Sensory Exam: No Sensory deficit (Neuro) Extrem: General: Yes normal to inspection Psych: Appearance: grossly normal Objective Data Labs CBC & Chem 7: 12/25/20 06:08 12/25/20 06:08 Labs: Laboratory Results - last 24 hr 12/24/20 12/24/20 12/24/20 12:21 12:21 12:21 WBC 10.4 RBC 3.51 L Hgb 10.9 L Hct 34.7 L MCV 98.9 H MCH 31.1 MCHC 31.4 RDW 15.3 Plt Count 197 MPV 10.3 Immature Gran % (Auto) 0.5 H Neut % (Auto) 87.0 H Lymph % (Auto) 8.6 L [place] % (Auto) 3.1 Eos % (Auto) 0.3 Baso % (Auto) 0.5 Lymph # (Auto) 0.9 L [place] # (Auto) 0.3 Eos # (Auto) 0.0 Baso # (Auto) 0.1 Abs Immat Gran (auto) 0.05 H Absolute Neuts (auto) 9.1 H Absolute Nucleated RBC 0.000 Nucleated RBC % (auto) 0.0 Sodium 140 Potassium 7.2 H* D Chloride 103 Carbon Dioxide 20 L Anion Gap 24 H BUN 57 H Creatinine 10.25 H* Estim Creat Clear Calc 7.9 Estimated GFR 5 POC Glucose Random Glucose 95 D Calcium 8.3 L Troponin I High Sens 26.5 Stool Leukocytes, Qual C. difficile Tox B Gene Coronavirus (PCR) Influenza Type A (PCR) Influenza Type B (PCR) RSV RNA Qual (PCR) 12/24/20 12/24/20 12/24/20 13:41 15:07 15:59 WBC RBC Hgb Hct MCV MCH MCHC RDW Plt Count MPV Immature Gran % (Auto) Neut % (Auto) Lymph % (Auto) [place] % (Auto) Eos % (Auto) Baso % (Auto) Lymph # (Auto) [place] # (Auto) Eos # (Auto) Baso # (Auto) Abs Immat Gran (auto) Absolute Neuts (auto) Absolute Nucleated RBC Nucleated RBC % (auto) Sodium Potassium Chloride Carbon Dioxide Anion Gap BUN Creatinine Estim Creat Clear Calc Estimated GFR POC Glucose 84 137 H Random Glucose Calcium Troponin I High Sens Stool Leukocytes, Qual C. difficile Tox B Gene Coronavirus (PCR) NEGATIVE Influenza Type A (PCR) NEGATIVE Influenza Type B (PCR) NEGATIVE RSV RNA Qual (PCR) NEGATIVE 12/24/20 12/24/20 12/24/20 16:21 16:21 21:43 WBC RBC Hgb Hct MCV MCH MCHC RDW Plt Count MPV Immature Gran % (Auto) Neut % (Auto) Lymph % (Auto) [place] % (Auto) Eos % (Auto) Baso % (Auto) Lymph # (Auto) [place] # (Auto) Eos # (Auto) Baso # (Auto) Abs Immat Gran (auto) Absolute Neuts (auto) Absolute Nucleated RBC Nucleated RBC % (auto) Sodium Potassium Chloride Carbon Dioxide Anion Gap BUN Creatinine Estim Creat Clear Calc Estimated GFR POC Glucose 89 Random Glucose Calcium Troponin I High Sens Stool Leukocytes, Qual NEGATIVE C. difficile Tox B Gene NEGATIVE Coronavirus (PCR) Influenza Type A (PCR) Influenza Type B (PCR) RSV RNA Qual (PCR) 12/24/20 12/25/20 12/25/20 22:27 06:08 06:08 WBC 8.3 RBC 3.14 L Hgb 9.9 L Hct 31.0 L MCV 98.7 H MCH 31.5 MCHC 31.9 RDW 15.3 Plt Count 213 MPV 11.0 Immature Gran % (Auto) Neut % (Auto) Lymph % (Auto) [place] % (Auto) Eos % (Auto) Baso % (Auto) Lymph # (Auto) [place] # (Auto) Eos # (Auto) Baso # (Auto) Abs Immat Gran (auto) Absolute Neuts (auto) Absolute Nucleated RBC 0.000 Nucleated RBC % (auto) 0.0 Sodium 137 134 L Potassium 4.6 D 5.8 H D Chloride 99 98 Carbon Dioxide 21 L 20 L Anion Gap 22 H 22 H BUN 30 H Creatinine 7.01 H* Estim Creat Clear Calc 11.6 Estimated GFR 8 POC Glucose Random Glucose 86 Calcium 8.1 L Troponin I High Sens Stool Leukocytes, Qual C. difficile Tox B Gene Coronavirus (PCR) Influenza Type A (PCR) Influenza Type B (PCR) RSV RNA Qual (PCR) 12/25/20 12/25/20 07:25 10:54 WBC RBC Hgb Hct MCV MCH MCHC RDW Plt Count MPV Immature Gran % (Auto) Neut % (Auto) Lymph % (Auto) [place] % (Auto) Eos % (Auto) Baso % (Auto) Lymph # (Auto) [place] # (Auto) Eos # (Auto) Baso # (Auto) Abs Immat Gran (auto) Absolute Neuts (auto) Absolute Nucleated RBC Nucleated RBC % (auto) Sodium Potassium Chloride Carbon Dioxide Anion Gap BUN Creatinine Estim Creat Clear Calc Estimated GFR POC Glucose 85 184 H Random Glucose Calcium Troponin I High Sens Stool Leukocytes, Qual C. difficile Tox B Gene Coronavirus (PCR) Influenza Type A (PCR) Influenza Type B (PCR) RSV RNA Qual (PCR) Procedures Date of Service Date of Service: 12/25/20 Assessment & Plan Assessment and plan (1) Diarrhea: Status: Acute (2) Vomiting: Status: Acute (3) Fluid overload: Status: Acute (4) ESRD needing dialysis: Status: Acute Assessment and Plan: ESRD: nl TTS HyperK K incr again this am 5.8 Diarrhea: w/u in progress DM Hypoternsive: hold BP meds; IVF bolus REC: check BS; IVF bolus and hold BP meds; track BP closley as may need xfer to ICU; lokelma x1 and HD tomorow; w/u diarrhea will follow withteam Time Spent With Patient Time: Total time spent is greater than 50% in coordination of care (as documented) at patient's floor/unit and/or counseling patient: Progress Note: Quality Stroke Does the patient have a stroke diagnosis?: No
[2020-12-25] MEDS: 0.9 % Sodium Chloride 500 ML 999 ML IVCONT (12:02)
[2020-12-25] MEDS: Insulin Lispro 100 UNIT/ML 3 ML VIAL SUBCUT ×2 (12:02→16:35)
[2020-12-25] MEDS: Sodium Zirconium Cyclosilicate 10 GM POWD.PACK PO (13:14)
--- NOTE | 2020-12-25 14:15 | HO.PM.IMPN ---
Subjective Subjective Date of Service: 12/25/20 Interval History: dizzy Constitutional Constitutional: Reports no additional constitutional complaints Eyes Eyes: Reports no additional eye complaints Physical Exam Vital Signs: Vital Signs: Last Vital Signs Temp 96.9 F 12/25/20 11:32 Pulse 58 12/25/20 11:32 Resp 20 12/25/20 11:32 BP 78/40 L 12/25/20 11:32 Pulse Ox 97 12/25/20 11:32 Body Mass Index 30.4 General: AO X 3, ill appearing Resp: CTA bilateral CVS: S1,S2,RRR GI: soft, non tender, non distended Neuro: motor grossly intact Psych: appropriate affect Objective Data Current Medications Generic Name Dose Route Start Last Admin Trade Name Freq PRN Reason Stop Dose Admin Acetaminophen 650 mg 12/24/20 15:49 Acetaminophen 325 Mg Tablet PO Q6H PRN Pain, Mild (Pain Scale 1-3) Aspirin 81 mg 12/25/20 09:00 12/25/20 08:13 Aspirin Enteric Coated 81 Mg Tablet.Dr PO 81 mg DAILY MIREILLE Administration Atorvastatin Calcium 40 mg 12/25/20 21:00 Atorvastatin Calcium 40 Mg Tablet PO BEDTIME MIRE[place] Gabapentin 100 mg 12/24/20 21:00 12/24/20 23:18 Gabapentin 100 Mg Capsule PO 100 mg BEDTIME MIRE[place]LE Administration Ceftriaxone Sodium 1 gm/ 50 mls @ 100 mls/hr 12/24/20 23:00 12/24/20 23:41 Sodium Chloride IV Infused Q24H MIRE[place] Infusion Insulin Glargine 15 unit 12/25/20 09:00 12/25/20 08:14 Insulin Glargine,Hum.Rec.Anlog 100 Unit/Ml 10 Ml Vial SUBCUT 15 unit DAILY [place]RE[place] Administration Insulin Human Lispro 0 unit 12/24/20 16:30 12/25/20 12:02 Insulin Lispro 100 Unit/Ml 3 Ml Vial SUBCUT 2 unit QIDACHS [place] Administration Protocol Loperamide HCl 2 mg 12/25/20 09:12 Loperamide Hcl 2 Mg Capsule PO Q4H PRN diarrhea Ondansetron HCl 4 mg 12/24/20 15:49 12/24/20 17:59 Ondansetron Hcl 4 Mg/2 Ml Vial IVPUSH 4 mg Q8H PRN Administration Nausea and Vomiting Pharmacy Consult 1 each 12/24/20 13:30 Consult Rx Perform Med Rec MISCELLANE ONCE PRN Consult order Sertraline HCl 100 mg 12/25/20 09:00 12/25/20 08:13 Sertraline Hcl 100 Mg Tablet PO 100 mg DAILY MIRE[place] Administration Sevelamer Carbonate 2,400 mg 12/24/20 17:00 12/25/20 12:02 Sevelamer Carbonate Tablet 800 Mg Tablet PO 2,400 mg QIDWMHS [place] Administration Sodium Chloride 3 ml 12/24/20 16:00 12/25/20 08:00 0.9 % Sodium Chloride Flush 3 Ml Syringe IVFLUSH 3 ml QSHIFT [place] Administration Ticagrelor 90 mg 12/24/20 21:00 12/25/20 08:14 Ticagrelor 90 Mg Tablet PO 90 mg BID MIRE[place] Administration Labs CBC & Chem 7: 12/25/20 06:08 12/25/20 06:08 Labs: Laboratory Results - last 24 hr 12/24/20 12/24/20 12/24/20 13:41 15:07 15:59 MCV MCH MCHC RDW Plt Count MPV Absolute Nucleated RBC Nucleated RBC % (auto) Anion Gap Estim Creat Clear Calc Estimated GFR POC Glucose 84 137 H Random Glucose Calcium Stool Leukocytes, Qual C. difficile Tox B Gene Coronavirus (PCR) NEGATIVE Influenza Type A (PCR) NEGATIVE Influenza Type B (PCR) NEGATIVE RSV RNA Qual (PCR) NEGATIVE 12/24/20 12/24/20 12/24/20 16:21 16:21 21:43 MCV MCH MCHC RDW Plt Count MPV Absolute Nucleated RBC Nucleated RBC % (auto) Anion Gap Estim Creat Clear Calc Estimated GFR POC Glucose 89 Random Glucose Calcium Stool Leukocytes, Qual NEGATIVE C. difficile Tox B Gene NEGATIVE Coronavirus (PCR) Influenza Type A (PCR) Influenza Type B (PCR) RSV RNA Qual (PCR) 12/24/20 12/25/20 12/25/20 22:27 06:08 06:08 MCV 98.7 H MCH 31.5 MCHC 31.9 RDW 15.3 Plt Count 213 MPV 11.0 Absolute Nucleated RBC 0.000 Nucleated RBC % (auto) 0.0 Anion Gap 22 H 22 H Estim Creat Clear Calc 11.6 Estimated GFR 8 POC Glucose Random Glucose 86 Calcium 8.1 L Stool Leukocytes, Qual C. difficile Tox B Gene Coronavirus (PCR) Influenza Type A (PCR) Influenza Type B (PCR) RSV RNA Qual (PCR) 12/25/20 12/25/20 07:25 10:54 MCV MCH MCHC RDW Plt Count MPV Absolute Nucleated RBC Nucleated RBC % (auto) Anion Gap Estim Creat Clear Calc Estimated GFR POC Glucose 85 184 H Random Glucose Calcium Stool Leukocytes, Qual C. difficile Tox B Gene Coronavirus (PCR) Influenza Type A (PCR) Influenza Type B (PCR) RSV RNA Qual (PCR) Assessment and Plan Assessment and Plan: 65M presented with nausea, diarrhea, vomitting, found to be hyperkalemic ESRD with hyperkalemia improved with HD hypotensive hold antihypertensive, fiven 500cc ns DM insulin CAD DAPL, statin Quality Stroke Does the patient have a stroke diagnosis?: No VTE Prior VTE?: No VTE Risk Level:: Medical - moderate - high VTE Device Contraindication: Treatment Not Indicated VTE Drug Contraindication: N/A - Med Ordered
[2020-12-25 15:51] LABS: Glucose, Whole Blood 153 mg/dL (60-115)
[2020-12-25 20:00] LABS: Glucose, Whole Blood 150 mg/dL (60-115)
[2020-12-25] MEDS: Gabapentin 100 MG CAPSULE PO (22:09)
[2020-12-25] MEDS: Acetaminophen 325 MG TABLET 650 MG PO (22:09)
[2020-12-25] MEDS: cefTRIAXone sodium 1 GM in 0.9 % Sodium Chloride 50 ML IV (22:10)
[2020-12-25] MEDS: Atorvastatin Calcium 40 MG TABLET PO (22:10)
[2020-12-25 22:43] LABS: Anion Gap 22 (12-20); Carbon Dioxide 20 mmol/L (22-29); Chloride 99 mmol/L (96-108); Potassium 4.8 mmol/L (3.3-5.1); Sodium 136 mmol/L (135-145)
[2020-12-25] MEDS: 0.9 % Sodium Chloride 500 ML 100 ML IV (23:21)
[2020-12-26 04:00] VITALS: BP 140/64; PULSE 60; RESP 20; TEMP 36.6; O2SAT 99
[2020-12-26] MEDS: Acetaminophen 325 MG TABLET 650 MG PO ×3 (05:54→19:27)
[2020-12-26 07:15] LABS: Hematocrit 30.2 % (42-52); Hemoglobin 9.7 g/dl (14.0-18.0); Mean Corpuscular HGB Conc 32.1 g/dl (31.0-36.0); Mean Corpuscular Hemoglobin 31.1 pg (27.0-33.0); Mean Corpuscular Volume 96.8 fL (80-98); Mean Platelet Volume 10.9 fL (9.4-12.4); Platelet Count 201 X10*3/uL (160-400); Red Blood Count 3.12 X10*6/uL (4.60-5.80); White Blood Count 6.8 X10*3/uL (4.8-10.8)
[2020-12-26 07:17] VITALS: BP 165/76; PULSE 60; RESP 20; TEMP 36.4; O2SAT 98
[2020-12-26 07:41] LABS: Glucose, Whole Blood 104 mg/dL (60-115)
[2020-12-26 07:58] LABS: Anion Gap 19 (12-20); Blood Urea Nitrogen 48 mg/dL (9-16); Calcium 7.5 mg/dL (8.4-10.2); Carbon Dioxide 21 mmol/L (22-29); Chloride 99 mmol/L (96-108); Glucose Fasting 103 mg/dL (60-99); Potassium 4.4 mmol/L (3.3-5.1); Sodium 135 mmol/L (135-145)
[2020-12-26] MEDS: Ticagrelor 90 MG TABLET PO ×2 (08:09→19:28)
[2020-12-26] MEDS: Aspirin Enteric Coated 81 MG TABLET.DR PO (08:09)
[2020-12-26] MEDS: Sertraline HCL 100 MG TABLET PO (08:09)
[2020-12-26] MEDS: Sevelamer Carbonate Tablet 800 MG TABLET 2400 MG PO ×4 (08:10→19:28)
[2020-12-26] MEDS: 0.9 % Sodium Chloride Flush 3 ML SYRINGE IVFLUSH ×2 (08:10→15:09)
[2020-12-26] MEDS: Insulin Glargine,Hum.rec.anlog 100 UNIT/ML 10 ML VIAL 15 UNIT SUBCUT (08:10)
[2020-12-26 08:11] LABS: Creatinine Clr Calc Pharmacy 9.2; Estimated Glomerular Filt Rate 6
[2020-12-26 11:27] LABS: Glucose, Whole Blood 123 mg/dL (60-115)
[2020-12-26 12:00] VITALS: BP 187/83; PULSE 67; RESP 20; TEMP 36.4; O2SAT 100
--- NOTE | 2020-12-26 12:21 | P.DS_ITS ---
DS: Providers Provider Date of Service: 12/27/20 Date of admission: 12/24/20 15:49 Primary care physician: Unknown Physician Consults: 12/25/20 11:27 Consult to Nephrology Routine Consulting Provider: Mychal Castaneda Reason for consultation: esrd DS: Diagnosis Discharge Diagnosis (1) Diarrhea: Status: Acute (2) Vomiting: Status: Acute (3) Fluid overload: Status: Acute (4) ESRD needing dialysis: Status: Acute DS: Medications Discharge Medications Home Medications: Home Medications Medication Instructions Recorded Confirmed aspirin 81 mg tablet,delayed 81 mg PO DAILY 08/07/20 12/24/20 release (Adult Low Dose Aspirin) clonidine HCl 0.2 mg tablet 0.2 mg PO TID 08/07/20 12/24/20 gabapentin 100 mg capsule 100 mg PO BEDTIME 08/07/20 12/24/20 pantoprazole 40 mg tablet,delayed 40 mg PO DAILY 08/07/20 12/24/20 release sertraline 100 mg tablet 100 mg PO DAILY 08/07/20 12/24/20 atorvastatin 40 mg tablet 40 mg PO DAILY 12/03/20 12/24/20 insulin degludec 200 unit/mL (3 24 unit SUBCUT BEDTIME 12/03/20 12/24/20 mL) subcutaneous pen nifedipine 90 mg tablet,extended 90 mg PO BID 12/03/20 12/24/20 release 24 hr acetaminophen 650 mg 1 tab PO Q8H PRN 12/24/20 12/24/20 tablet,extended release carvedilol 12.5 mg tablet (Coreg) 12.5 mg PO BIDWM 12/24/20 12/24/20 isosorbide mononitrate 30 mg 1 tab PO QAM 12/24/20 12/24/20 tablet,extended release 24 hr sevelamer carbonate 800 mg tablet 2,400 mg PO QIDWMHS 12/24/20 12/24/20 Previous Rx's Medication Instructions Recorded ticagrelor 90 mg tablet (Brilinta) 90 mg PO BID 90 Days #180 tab 08/22/20 DS: Summary Hospital Course Hospital Course: patient was admitted for gastroenteritis complicated by hyperkalemia and hypot ension. he underwent HD with resolution of hyperkalemia. he was given antiemetics and antidiarrheals. GI symptoms resolved. his hypotension was likely related to dehydration, he was given fluids and his bp improved. he was also having headaches, he was given fiorecet. he is feeling much better now and will be discharged home. Time Spent with Patient Time attestation: Total time spent providing and/or coordinating discharge services: Discharge coordination time: Greater than 30 minutes Quality: Stroke Does the patient have a stroke diagnosis?: No Physical Exam Vital Signs: Vital Signs: Last Vital Signs Temp 97.6 F 12/26/20 12:00 Pulse 67 12/26/20 12:00 Resp 20 12/26/20 12:00 BP 187/83 H 12/26/20 12:00 Pulse Ox 100 12/26/20 12:00 Body Mass Index 30.4 DS: Data Data Completed and Pending Labs on day of discharge: Laboratory Results - last 24 hr 12/25/20 12/25/20 12/25/20 15:48 19:56 21:48 WBC RBC Hgb Hct MCV MCH MCHC RDW Plt Count MPV Absolute Nucleated RBC Nucleated RBC % (auto) Sodium 136 Potassium 4.8 Chloride 99 Carbon Dioxide 20 L Anion Gap 22 H BUN Creatinine Estim Creat Clear Calc Estimated GFR POC Glucose 153 H 150 H Fasting Glucose Calcium 12/26/20 12/26/20 12/26/20 05:53 05:53 07:19 WBC 6.8 RBC 3.12 L Hgb 9.7 L Hct 30.2 L MCV 96.8 MCH 31.1 MCHC 32.1 RDW 15.0 Plt Count 201 MPV 10.9 Absolute Nucleated RBC 0.000 Nucleated RBC % (auto) 0.0 Sodium 135 Potassium 4.4 Chloride 99 Carbon Dioxide 21 L Anion Gap 19 BUN 48 H D Creatinine 8.90 H* Estim Creat Clear Calc 9.2 Estimated GFR 6 POC Glucose 104 Fasting Glucose 103 H Calcium 7.5 L D 12/26/20 11:06 WBC RBC Hgb Hct MCV MCH MCHC RDW Plt Count MPV Absolute Nucleated RBC Nucleated RBC % (auto) Sodium Potassium Chloride Carbon Dioxide Anion Gap BUN Creatinine Estim Creat Clear Calc Estimated GFR POC Glucose 123 H Fasting Glucose Calcium Discharge Plan Discharge Patient Disposition: Home Health Service Discharge Diagnosis: hyperk Referrals: Brent CLEMENTS [Outside] - 1 Week Physician,Unknown [Primary Care Provider] - 1 Week Discharge Medications: Continued Brilinta 90 mg tablet 90 mg PO BID 90 Days Qty: 180 RF: 1 isosorbide mononitrate 30 mg tablet extended release 24 hr 1 tab PO QAM RF: 0 Hold Instructions: Resume on 12/25/20. resume date to be determined acetaminophen 650 mg tablet extended release 1 tab PO Q8H PRN (Reason: Pain) RF: 0 sevelamer carbonate 800 mg tablet 2,400 mg PO QIDWMHS RF: 0 carvedilol [Coreg] 12.5 mg tablet 12.5 mg PO BIDWM RF: 0 aspirin [Adult Low Dose Aspirin] 81 mg tablet,delayed release (DR/EC) 81 mg PO DAILY RF: 0 clonidine HCl 0.2 mg tablet 0.2 mg PO TID RF: 0 Hold Instructions: Resume on 01/01/21. resume date to be determined at HD gabapentin 100 mg capsule 100 mg PO BEDTIME RF: 0 pantoprazole 40 mg tablet,delayed release (DR/EC) 40 mg PO DAILY RF: 0 sertraline 100 mg tablet 100 mg PO DAILY RF: 0 atorvastatin 40 mg tablet 40 mg PO DAILY RF: 0 nifedipine 90 mg tablet extended release 24hr 90 mg PO BID RF: 0 Hold Instructions: Resume on 12/25/20. resume date to be determined insulin degludec 200 unit/mL (3 mL) insulin pen 24 unit subcut BEDTIME RF: 0 Discharge Orders: Discharge Order (Routine); Ordered 12/27/20 Ordered By: Prosper Siddiqi Diet: advance to usual diet Activity on Discharge: As tolerated Stand Alone Forms: Patient Portal Discharge page Care Plan Goals: recovery Health Concerns: hypotension Plan of Treatment: tylenol as needed for headaches Assessment: see above
[2020-12-26 12:43] VITALS: BP 187/83; PULSE 68
[2020-12-26] MEDS: cloNIDine HCL 0.2 MG TABLET PO (12:43)
--- NOTE | 2020-12-26 13:13 | MHC.CM.PN ---
Patient has been medically cleared for dc to home today, with services; Patient was active with [facility], who has been notified of today's dc. Last IMM addressed yesterday.
[2020-12-26] MEDS: ondansetron HCL 4 MG/2 ML VIAL IVPUSH (15:09)
[2020-12-26 15:16] VITALS: BP 178/74; PULSE 60; RESP 15; TEMP 36.8; O2SAT 98
--- NOTE | 2020-12-26 15:45 | HO.PM.IMPN ---
Subjective Subjective Date of Service: 12/26/20 Interval History: was feeling better, prior to discharge started having nausea again and headache Constitutional Constitutional: Reports no additional constitutional complaints Eyes Eyes: Reports no additional eye complaints Physical Exam Vital Signs: Vital Signs: Last Vital Signs Temp 98.2 F 12/26/20 15:16 Pulse 60 12/26/20 15:16 Resp 15 12/26/20 15:16 BP 178/74 H 12/26/20 15:16 Pulse Ox 98 12/26/20 15:16 Body Mass Index 30.4 General: AO X 3, no acute distress Resp: CTA bilateral CVS: S1,S2,RRR GI: soft, non tender, non distended Neuro: motor grossly intact Psych: appropriate affect Objective Data Current Medications Generic Name Dose Route Start Last Admin Trade Name Freq PRN Reason Stop Dose Admin Acetaminophen 650 mg 12/24/20 15:49 12/26/20 12:17 Acetaminophen 325 Mg Tablet PO 650 mg Q6H PRN Administration Pain, Mild (Pain Scale 1-3) Aspirin 81 mg 12/25/20 09:00 12/26/20 08:09 Aspirin Enteric Coated 81 Mg Tablet.Dr PO 81 mg DAILY MIREILLE Administration Atorvastatin Calcium 40 mg 12/25/20 21:00 12/25/20 22:10 Atorvastatin Calcium 40 Mg Tablet PO 40 mg BEDTIME MIREILLE Administration Gabapentin 100 mg 12/24/20 21:00 12/25/20 22:09 Gabapentin 100 Mg Capsule PO 100 mg BEDTIME MIRE[place]LE Administration Ceftriaxone Sodium 1 gm/ 50 mls @ 100 mls/hr 12/24/20 23:00 12/25/20 23:17 Sodium Chloride IV Infused Q24H [place]RE[place] Infusion Insulin Glargine 15 unit 12/25/20 09:00 12/26/20 08:10 Insulin Glargine,Hum.Rec.Anlog 100 Unit/Ml 10 Ml Vial SUBCUT 15 unit DAILY MIRE[place]LE Administration Insulin Human Lispro 0 unit 12/24/20 16:30 12/26/20 11:11 Insulin Lispro 100 Unit/Ml 3 Ml Vial SUBCUT Not Given QIDACHS [facility] Protocol Loperamide HCl 2 mg 12/25/20 09:12 Loperamide Hcl 2 Mg Capsule PO Q4H PRN diarrhea Ondansetron HCl 4 mg 12/24/20 15:49 12/26/20 15:09 Ondansetron Hcl 4 Mg/2 Ml Vial IVPUSH 4 mg Q8H PRN Administration Nausea and Vomiting Pharmacy Consult 1 each 12/24/20 13:30 Consult Rx Perform Med Rec MISCELLANE ONCE PRN Consult order Sertraline HCl 100 mg 12/25/20 09:00 12/26/20 08:09 Sertraline Hcl 100 Mg Tablet PO 100 mg DAILY [place]RE[place] Administration Sevelamer Carbonate 2,400 mg 12/24/20 17:00 12/26/20 12:18 Sevelamer Carbonate Tablet 800 Mg Tablet PO 2,400 mg QIDWMHS [place] Administration Sodium Chloride 3 ml 12/24/20 16:00 12/26/20 15:09 0.9 % Sodium Chloride Flush 3 Ml Syringe IVFLUSH 3 ml QSHIFT [place] Administration Ticagrelor 90 mg 12/24/20 21:00 12/26/20 08:09 Ticagrelor 90 Mg Tablet PO 90 mg BID MIRE[place]LE Administration Labs CBC & Chem 7: 12/26/20 05:53 12/26/20 05:53 Labs: Laboratory Results - last 24 hr 12/25/20 12/25/20 12/25/20 15:48 19:56 21:48 MCV MCH MCHC RDW Plt Count MPV Absolute Nucleated RBC Nucleated RBC % (auto) Anion Gap 22 H Estim Creat Clear Calc Estimated GFR POC Glucose 153 H 150 H Fasting Glucose Calcium 12/26/20 12/26/20 12/26/20 05:53 05:53 07:19 MCV 96.8 MCH 31.1 MCHC 32.1 RDW 15.0 Plt Count 201 MPV 10.9 Absolute Nucleated RBC 0.000 Nucleated RBC % (auto) 0.0 Anion Gap 19 Estim Creat Clear Calc 9.2 Estimated GFR 6 POC Glucose 104 Fasting Glucose 103 H Calcium 7.5 L D 12/26/20 11:06 MCV MCH MCHC RDW Plt Count MPV Absolute Nucleated RBC Nucleated RBC % (auto) Anion Gap Estim Creat Clear Calc Estimated GFR POC Glucose 123 H Fasting Glucose Calcium Assessment and Plan (1) ESRD needing dialysis: Status: Acute Assessment and Plan: 65M presented with nausea, diarrhea, vomitting, found to be hyperkalemic gastroenteritis initially resolved, but now nasueous again, will cnacel discharge ESRD with hyperkalemia improved with HD hypotensive resolved, restarting coreg for now DM insulin CAD DAPL, statin Quality Stroke Does the patient have a stroke diagnosis?: No VTE Prior VTE?: No VTE Risk Level:: Medical - moderate - high VTE Device Contraindication: Treatment Not Indicated VTE Drug Contraindication: N/A - Med Ordered
--- NOTE | 2020-12-26 15:50 | PC.NURSE ---
Addendum entered by Dahiana Maria RN 12/26/20 18:25: DIALYSIS REMOVED 1 KG TODAY. Original Note: BP POST DIALYSIS 187/83. NOTIFIED. ONE TIME DOSE OF CATAPRES 0.2 MG PO ADMINISTERED. AFTERNOON VITALS 178/74. MD NOTIFIED. NO FURTHER ORDERS FOR BP AT THIS TIME. WILL CONTINUE TO MONITOR. HEADACHE AND NAUSEA TREATED WITH PRN MEDICATIONS. SEE EMAR. AWARE. PT STATES NOT READY TO GO HOME YET. MD NOTIFIED.
[2020-12-26 16:14] LABS: Glucose, Whole Blood 174 mg/dL (60-115)
[2020-12-26] MEDS: Insulin Lispro 100 UNIT/ML 3 ML VIAL SUBCUT (16:55)
[2020-12-26 19:23] VITALS: BP 179/84; PULSE 62; RESP 18; TEMP 36.6; O2SAT 97
[2020-12-26] MEDS: carvediloL 12.5 MG TABLET PO (19:28)
[2020-12-26] MEDS: Atorvastatin Calcium 40 MG TABLET PO (19:28)
[2020-12-26] MEDS: Gabapentin 100 MG CAPSULE PO (19:28)
[2020-12-26 20:21] LABS: Glucose, Whole Blood 116 mg/dL (60-115)
--- NOTE | 2020-12-26 20:22 | PM.PNNEP ---
Subjective Subjective Date of Service: 12/26/20 Principal diagnosis: esrd Interval history: seen and examined, events noted Physical Exam Vital Signs: Vital Signs: Last Vital Signs Temp 98 F 12/26/20 19:23 Pulse 62 12/26/20 19:23 Resp 18 12/26/20 19:23 BP 179/84 H 12/26/20 19:23 Pulse Ox 97 12/26/20 19:23 Body Mass Index 30.4 Const: Other: Constitutional : Alert, oriented to self and place, looks ill and in mild distress Neck : Normal inspection, Supple Cardiovascular : RRR, S1 S2, no lower extremity edema Respiratory : Fares bilateral air entry, basal bilateral fine crackles, wheezes or rhonchi Gastrointestinal: soft, lax, Normal bowel sounds, Non tender Skin : Warm, Dry, fistula in place Neurological : Alert, interactive, No focal deficit Nutritional Appearance: average body habitus Orientation/consciousness: oriented to person and patient oriented x3 Limitations: no limitations HENMT: Head: Yes normal to inspection Ears: external ears normal General nose exam: Normal external nose present Mouth: Normal oral and palatal mucosa present and oropharynx normal Throat: Yes posterior oropharynx normal Eyes: Other: periorbital edema Neck: Other: supple Neck: Yes normal visual inspection Chest: Chest palpation & inspection: normal inspection of the chest Resp: Auscultation: clear to auscultation bilaterally Cardio: Jugular venous distension: no JVD Rate: regular rate Rhythm: regular rhythm Heart sounds: S1 normal heart sound present and S2 normal heart sound present GI: Inspection: Yes normal to inspection Palpation (GI): Soft to palpation, nontender and No hepatosplenomegaly present Auscultation: normal bowel sounds : General: Yes no CVA tenderness Back/Spine/Pelvis: Back: no CVA tenderness Skin: Other: large left hip hematoma Neuro: Other: patient is symmetric no evidence of stroke General: oriented to person and patient oriented x3 Cranial nerves: Yes CN's II-XII intact bilaterally Motor exam (neuro): 5/5 motor strength present throughout Sensory Exam: No Sensory deficit (Neuro) Extrem: General: Yes normal to inspection Psych: Appearance: grossly normal Objective Data Labs CBC & Chem 7: 12/26/20 05:53 12/26/20 05:53 Labs: Laboratory Results - last 24 hr 12/25/20 12/26/20 12/26/20 21:48 05:53 05:53 WBC 6.8 RBC 3.12 L Hgb 9.7 L Hct 30.2 L MCV 96.8 MCH 31.1 MCHC 32.1 RDW 15.0 Plt Count 201 MPV 10.9 Absolute Nucleated RBC 0.000 Nucleated RBC % (auto) 0.0 Sodium 136 135 Potassium 4.8 4.4 Chloride 99 99 Carbon Dioxide 20 L 21 L Anion Gap 22 H 19 BUN 48 H D Creatinine 8.90 H* Estim Creat Clear Calc 9.2 Estimated GFR 6 POC Glucose Fasting Glucose 103 H Calcium 7.5 L D 12/26/20 12/26/20 12/26/20 07:19 11:06 16:06 WBC RBC Hgb Hct MCV MCH MCHC RDW Plt Count MPV Absolute Nucleated RBC Nucleated RBC % (auto) Sodium Potassium Chloride Carbon Dioxide Anion Gap BUN Creatinine Estim Creat Clear Calc Estimated GFR POC Glucose 104 123 H 174 H Fasting Glucose Calcium 12/26/20 20:14 WBC RBC Hgb Hct MCV MCH MCHC RDW Plt Count MPV Absolute Nucleated RBC Nucleated RBC % (auto) Sodium Potassium Chloride Carbon Dioxide Anion Gap BUN Creatinine Estim Creat Clear Calc Estimated GFR POC Glucose 116 H Fasting Glucose Calcium Procedures Date of Service Date of Service: 12/26/20 Assessment & Plan Assessment and plan (1) Diarrhea: Status: Acute (2) Vomiting: Status: Acute (3) Fluid overload: Status: Acute (4) ESRD needing dialysis: Status: Acute Assessment and Plan: ESRD: nl TTS HyperK: resolved with lokelma and HD Diarrhea: w/u in progress DM Labile HTN: r/s BP meds gradually REC: r/s BP meds gradually; w/u diarrhea; d/c planning will follow withteam Time Spent With Patient Time: Total time spent is greater than 50% in coordination of care (as documented) at patient's floor/unit and/or counseling patient: Progress Note: Quality Stroke Does the patient have a stroke diagnosis?: No
[2020-12-26] MEDS: cefTRIAXone sodium 1 GM in 0.9 % Sodium Chloride 50 ML IV (22:25)
[2020-12-27] VITALS (10 sets, daily range): BP systolic 138–209; BP diastolic 64–98; PULSE 58–98; RESP 17–20; TEMP 35.9–37.2; O2SAT 97–100
[2020-12-27] MEDS: Acetaminophen 325 MG TABLET 650 MG PO (02:13)
[2020-12-27 06:36] LABS: Hematocrit 32.7 % (42-52); Hemoglobin 10.6 g/dl (14.0-18.0); Mean Corpuscular HGB Conc 32.4 g/dl (31.0-36.0); Mean Corpuscular Hemoglobin 30.7 pg (27.0-33.0); Mean Corpuscular Volume 94.8 fL (80-98); Mean Platelet Volume 10.9 fL (9.4-12.4); Platelet Count 201 X10*3/uL (160-400); Red Blood Count 3.45 X10*6/uL (4.60-5.80); Red Cell Distribution Width 14.7 % (11.0-16.0); White Blood Count 5.9 X10*3/uL (4.8-10.8)
[2020-12-27 07:26] LABS: Anion Gap 18 (12-20); Blood Urea Nitrogen 31 mg/dL (9-16); Calcium 8.1 mg/dL (8.4-10.2); Carbon Dioxide 20 mmol/L (22-29); Chloride 100 mmol/L (96-108); Glucose Fasting 147 mg/dL (60-99); Potassium 4.3 mmol/L (3.3-5.1); Sodium 134 mmol/L (135-145)
[2020-12-27 07:45] LABS: Glucose, Whole Blood 137 mg/dL (60-115)
[2020-12-27 07:46] LABS: Creatinine Clr Calc Pharmacy 13.1; Estimated Glomerular Filt Rate 9
[2020-12-27] MEDS: Aspirin Enteric Coated 81 MG TABLET.DR PO (08:09)
[2020-12-27] MEDS: carvediloL 12.5 MG TABLET PO (08:09)
[2020-12-27] MEDS: Sevelamer Carbonate Tablet 800 MG TABLET 2400 MG PO ×3 (08:10→17:14)
[2020-12-27] MEDS: Sertraline HCL 100 MG TABLET PO (08:10)
[2020-12-27] MEDS: Insulin Glargine,Hum.rec.anlog 100 UNIT/ML 10 ML VIAL 15 UNIT SUBCUT (08:10)
[2020-12-27] MEDS: Ticagrelor 90 MG TABLET PO (08:10)
[2020-12-27] MEDS: 0.9 % Sodium Chloride Flush 3 ML SYRINGE IVFLUSH (08:14)
[2020-12-27] MEDS: Butalb/Acetamin/Caff 50/325/40 TABLET 1 TAB PO (10:51)
[2020-12-27 11:17] LABS: Glucose, Whole Blood 214 mg/dL (60-115)
[2020-12-27] MEDS: Insulin Lispro 100 UNIT/ML 3 ML VIAL SUBCUT ×2 (12:06→17:14)
[2020-12-27] MEDS: Isosorbide Mononitrate 30 MG TAB.ER.24H PO (14:05)
[2020-12-27] MEDS: NIFEdipine ER 90 MG TAB.ER.24 PO (14:05)
[2020-12-27] MEDS: cloNIDine HCL 0.2 MG TABLET PO (14:45)
[2020-12-27 16:16] LABS: Glucose, Whole Blood 209 mg/dL (60-115)
== END 2020-12-27 18:28 | disposition home health service (06) | DRG 391 ==
LOC: HO.ED 13:29 → HO.EDOVER 16:07 → HO.IMC 16:07
PROVIDERS: Internal Medicine Nephrology; Admitting Provider Student in an Organized Health Care Education/Training Program; Emergency Provider Emergency Medicine; Visit Provider Internal Medicine
DX: K52.9 Noninfective gastroenteritis and colitis, unspecified (principal); N18.6 End stage renal disease; I13.2 Hypertensive heart and chronic kidney disease with heart failure and with stage 5 chronic kidney disease, or end stage renal disease; I50.32 Chronic diastolic (congestive) heart failure; I25.10 Atherosclerotic heart disease of native coronary artery without angina pectoris; Z20.822 Contact with and (suspected) exposure to COVID-19; E11.22 Type 2 diabetes mellitus with diabetic chronic kidney disease; Z99.2 Dependence on renal dialysis; E87.5 Hyperkalemia; I95.9 Hypotension, unspecified; E86.0 Dehydration; Z79.4 Long term (current) use of insulin; Z79.82 Long term (current) use of aspirin; Z79.899 Other long term (current) drug therapy
CPT/HCPCS: 0241U; 36415; 71045; 74176; 80048; 80051; 82947; 84484; 85025; 85027; 87493; 89055; 90999; 93005; 96374; 96375; 99285; J0696; J2405; J2550

== ENCOUNTER 2021-02-10 08:50 | Outpatient (REF) | payer MEDICARE, SELFPAY ==
--- NOTE | 2021-02-10 10:32 | MHC.AU.AEV ---
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 He has also been experiencing a constant low-pitched tinnitus and pain in his ears. Patient has a complex medical history including end-stage renal disease, Type 2 Diabetes, Congestive Heart Failure, Coronary Artery Disease, Hypertension, and Myocardial Infarction. Does patient feel they have a hearing loss?: Yes If Yes, Which Ear?: Right Ear When Was Hearing Difficulty First Noticed?: 3 Weeks Ago Has hearing been tested previously?: No Hearing Handicap Inventory Does a hearing problem cause you to feel embarrassed when meeting new people?: Yes Does a hearing problem cause you to feel frustrated when talking to members of your family?: Sometimes Do you have difficulty when someone speaks in a whisper?: Yes Do you feel handicapped by a hearing problem?: Yes Does a hearing problem cause you difficulty when visiting friends, relatives, or neighbors?: Yes Does a hearing problem cause you to attend sabianist service services less often than you would like?: Yes Does a hearing problem cause you to have arguments with family members?: Yes Does a hearing problem cause you difficulty when listening to TV or radio?: Yes Do you feel that any difficult with your hearing limits or hampers your personal or social life?: Yes Does a hearing problem cause you difficulty when in a restaurants with relatives or friends?: Yes HHIE SCORE: 38 Based on HHIE score, patient has: Severe perceived hearing handicap Ear History: Ear Deformity: None Reported Recent Ear Drainage: None Reported Recent Ear Pain: Both Ears Family History of Hearing Loss?: Yes Recent Ear Infections: None Reported Bothersome Tinnitus/Ringing/Noises in Ears: Right Ear Blocked/Full Sensation in Ear(s): Right Ear History of occupational noise exposure?: No History: No Medical History: Medical History: Complex medical history including end-stage renal disease, Type 2 Diabetes, Congestive Heart Failure, Coronary Artery Disease, Hypertension, Myocardial Infarction, Obstructive Sleep Apnea, Cataracts, Hyperparathyroidism, and frequent falls. Mobility aide- walker. Otoscopy: Right Ear: Unremarkable Left Ear: Unremarkable Tympanometry: Tympanometry performed due to: To assess integrity of the middle ear system Right Ear: Negative Middle Ear Pressure (Type C) Left Ear: Negative Middle Ear Pressure (Type C) Hearing Evaluation: Transducer(s) Used: Circumaural Headphones Method: Conventional Audiometry Stimuli Used: Pure Tones Right Ear: Description of Hearing: Profound sensorineural hearing loss. Few measurable thresholds. Left Ear: Description of Hearing: Moderate to profound sensorineural hearing loss Speech Recognition Threshold (SRT): Method Used: Recorded Lists Stimuli Used: Malagasy Trisyllable Words Right Ear: Could not repeat any words up to maximum volume of audiometer Left Ear: 75 dBHL Soundfield: Word Discrimination: Method: Recorded Lists Word Lists Used:: Lista Bisil?bica (Malagasy) Right Ear: Could not test- no measurable word discrimination Left Ear: 60% at 95 dBHL Interpretation of Results: Patient has little measurable hearing in the right ear. The left ear has moderate to profound hearing loss with 60% word discrimination. The patient has slight negative middle ear pressure in both ears; however, it does not appear to impacting his hearing at this time. Patient's hearing loss is socially significant and he likely experiences difficulty in daily communication. Recommendations: Referral to Ear, Nose, and Throat is highly recommended to address sudden profound sensorineural hearing loss. Audiological re-evaluation in 6 months is recommended to monitor hearing, given the new-onset sudden hearing loss of the right ear. If hearing loss cannot be medically managed, trial with amplification is recommended. A BI-CROS system may be warranted. At this time, our clinic does not accept the patient's insurance for hearing aid services. If patient is interested in hearing aids, it is recommended that he contact his insurance provider (after Ear, Nose, and Throat consult) to locate a participating clinic. Diagnosis: Primary Diagnosis: H90.A21 SNHL, Unilateral Right Ear, W/Restricted Contralateral Hearing Signature: Provider: Abelardo Cooper, [facility]
== END 2021-02-10 08:51 | disposition home or self-care (01) ==
LOC: HO.SH 08:50
PROVIDERS: PCP Internal Medicine Geriatric Medicine; Visit Provider Emergency Medicine
DX: H91.91 Unspecified hearing loss, right ear (principal)
CPT/HCPCS: 92557; 92567

== ENCOUNTER 2021-05-11 12:47 | Emergency (ER) | payer MEDICARE, SELFPAY ==
--- NOTE | 2021-05-11 13:02 | ED_ITS ---
HPI - General Adult General Chief complaint: General Medical Stated complaint: R ARM DIALYSIS FISTULA BLEEDING,CONTROLLED Time Seen by Provider: 05/11/21 13:01 Source: patient, EMS, old records reviewed and language interpreter Mode of arrival: EMS Limitations: no limitations History of Present Illness HPI narrative: 65-year-old male came in for evaluation of right arm AV fistula bleeding. Patient was transferred from dialysis after patient come deleted his full session of dialysis today for AV fistula on the right on, EMS applied pressure dressing on the fistula during transportation, patient declined any pain or fe jackie, patient is not taking anticoagulation only take baby aspirin daily. Removing the pressure dressing applied by EMS patient is not actively bleeding now. Related Data Home Medications Medication Instructions Recorded Confirmed aspirin 81 mg tablet,delayed 81 mg PO DAILY 08/07/20 12/24/20 release (Adult Low Dose Aspirin) clonidine HCl 0.2 mg tablet 0.2 mg PO TID 08/07/20 12/24/20 gabapentin 100 mg capsule 100 mg PO BEDTIME 08/07/20 12/24/20 pantoprazole 40 mg tablet,delayed 40 mg PO DAILY 08/07/20 12/24/20 release sertraline 100 mg tablet 100 mg PO DAILY 08/07/20 12/24/20 atorvastatin 40 mg tablet 40 mg PO DAILY 12/03/20 12/24/20 insulin degludec 200 unit/mL (3 24 unit SUBCUT BEDTIME 12/03/20 12/24/20 mL) subcutaneous pen nifedipine 90 mg tablet,extended 90 mg PO BID 12/03/20 12/24/20 release 24 hr acetaminophen 650 mg 1 tab PO Q8H PRN 12/24/20 12/24/20 tablet,extended release sevelamer carbonate 800 mg tablet 2,400 mg PO QIDWMHS 12/24/20 12/24/20 Previous Rx's Medication Instructions Recorded ticagrelor 90 mg tablet (Brilinta) 90 mg PO BID 90 Days #180 tab 01/29/21 isosorbide mononitrate 30 mg 30 mg PO QAM 90 Days #90 tab 02/20/21 tablet,extended release 24 hr carvedilol 12.5 mg tablet (Coreg) 12.5 mg PO BIDWM 30 Days #60 tab 04/22/21 Allergies Allergy/AdvReac Type Severity Reaction Status Date / Time No Known Allergies Allergy Unverified 01/25/20 16:50 [No Known Allergies*] Review of Systems Review of Systems: All other systems are reviewed and are negative Constitutional: Reports as per HPI and Reports no additional constitutional complaints Eyes: Reports as per HPI and Reports no additional eye complaints Reports system reviewed and no additional complaints, except as documented Cardiovascular: Reports as per HPI and Reports no additional cardiovascular complaints Respiratory: Reports as per HPI and Reports no additional respiratory complaints Gastrointestinal: Reports as per HPI and Reports no additional gastrointestinal complaints Genitourinary: Reports no additional female genitourinary complaints Musculoskeletal: Reports no additional musculoskeletal complaints Skin/Breast: Reports system reviewed and no additional complaints, except as docu Psychiatric: Reports no additional psychiatric complaints Endocrine: Reports no additional endocrine complaints Hematologic/Lymphatic: Reports no additional hematologic/lymphatic complaints Allergic/Immunologic: Reports no additional allergic/immunologic complaints Reports system reviewed and no additional complaints, except as documented and Reports Abnormal speech present REPLACED BY [facility] Past Medical History Medical History (HFpEF) heart failure with preserved ejection fraction CAD (coronary artery disease) Diabetes mellitus End stage renal disease Frailty HTN (hypertension) Ischemic cardiomyopathy Surgical History Hx of cardiac cath Hx of cholecystectomy Hx of colonoscopy Hx of knee surgery Stented coronary artery Family History Family History Father No problems noted. Mother Diabetes Social History Social History Household Members: None Housing: Apartment Do you presently have visiting nurse or other home services: No Alcohol intake: former Patient Tobacco Use Status: Never used Tobacco Advance Directives: No Advance Directives Information Provided: No service: No Current occupational status: disabled Physical Exam Vital Signs: Vital Signs: Vital signs have been reviewed as appeared to be correct. Blood pressure normal. Heart rate normal. Respiration rate normal. Temperature normal. Oxygen saturation normal. Appearance: Alert. Oriented X3. No acute distress. Head: Normal external exam. Normocephalic. Atraumatic. No Rhodes signs noted. No raccoon eyes noted Eyes: PERRLA. EOMI. Conjunctiva and sclera normal. Eyelids normal. ENT: TM's Normal. Pharynx normal. Uvula midline. Moist mucous membranes. No trismus noted. No drooling noted. No muffled voice noted. Neck: Normal inspection. Neck supple. FROM. No adenopathy. Thyroid Normal. No meningeal signs. No neck mass noted. CVS: Normal heart rate and rhythm. Heart sound normal. No murmurs noted. Pulses normal throughout. Respiratory: No respiratory distress. Painless inspiration. Breath sounds normal. No wheezes/rales/rhonchi noted. Chest nontender. No accessory muscle usage noted or decreased air movement noted. Abdomen: Soft and nontender. Bowel sounds normal in all 4 quadrants. No distention noted. No organomegaly noted. No visible injury noted. Back: No CVA tenderness. Full range of motion noted. Skin: Skin warm and dry. Normal skin color. Normal skin turgor. No rashes/lesions/lacerations noted. Extremities: Right arm AV fistula, no active bleeding, thrilling is intact insight AV fistula. Neuro: Oriented X 3. Cranial nerve exam: II-XII are grossly intact No motor deficit. No sensory deficit. Reflexes normal. Course Course Course Narrative: Assessment and plan. AV fistula bleeding controlled by pressure, patient hemodynamically stable, patient already finished with his dialysis today. Discharge Plan Discharge Clinical Impression: Hemorrhage of arteriovenous fistula Patient Disposition: Home, Self-Care Additional Instructions: If you start to bleed from the AV fistula apply pressure on the bleeding side with a gauze and called 911. Prescriptions: No Action Brilinta 90 mg tablet 90 mg PO BID 90 Days Qty: 180 RF: 1 isosorbide mononitrate 30 mg tablet extended release 24 hr 30 mg PO QAM 90 Days Qty: 90 RF: 3 Hold Instructions: Resume on 12/25/20. resume date to be determined carvedilol [Coreg] 12.5 mg tablet 12.5 mg PO BIDWM 30 Days Qty: 60 RF: 0 acetaminophen 650 mg tablet extended release 1 tab PO Q8H PRN (Reason: Pain) RF: 0 sevelamer carbonate 800 mg tablet 2,400 mg PO QIDWMHS RF: 0 aspirin [Adult Low Dose Aspirin] 81 mg tablet,delayed release (DR/EC) 81 mg PO DAILY RF: 0 clonidine HCl 0.2 mg tablet 0.2 mg PO TID RF: 0 Hold Instructions: Resume on 01/01/21. resume date to be determined at HD gabapentin 100 mg capsule 100 mg PO BEDTIME RF: 0 pantoprazole 40 mg tablet,delayed release (DR/EC) 40 mg PO DAILY RF: 0 sertraline 100 mg tablet 100 mg PO DAILY RF: 0 atorvastatin 40 mg tablet 40 mg PO DAILY RF: 0 nifedipine 90 mg tablet extended release 24hr 90 mg PO BID RF: 0 Hold Instructions: Resume on 12/25/20. resume date to be determined insulin degludec 200 unit/mL (3 mL) insulin pen 24 unit subcut BEDTIME RF: 0 Referrals: Physician,Unknown J [Primary Care Provider] - 2 days
[2021-05-11 13:04] VITALS: BP 162/76; PULSE 70; RESP 18; TEMP 36.1; O2SAT 99; BMI 29.7
== END 2021-05-11 14:19 | disposition home or self-care (01) ==
PROVIDERS: Emergency Provider Emergency Medicine
DX: T82.838A Hemorrhage due to vascular prosthetic devices, implants and grafts, initial encounter (principal); Y84.1 Kidney dialysis as the cause of abnormal reaction of the patient, or of later complication, without mention of misadventure at the time of the procedure; Y92.89 Other specified places as the place of occurrence of the external cause; E11.22 Type 2 diabetes mellitus with diabetic chronic kidney disease; I13.2 Hypertensive heart and chronic kidney disease with heart failure and with stage 5 chronic kidney disease, or end stage renal disease; N18.6 End stage renal disease; I50.30 Unspecified diastolic (congestive) heart failure; Z99.2 Dependence on renal dialysis
CPT/HCPCS: 99283

== ENCOUNTER 2021-06-13 00:19 | Emergency (ER) | payer MEDICARE, SELFPAY ==
--- NOTE | ~2021-06-13 | XR_ITS ---
EXAMINATION: XR CHEST CLINICAL INFORMATION: Chest pain COMPARISON: 12/24/2020 TECHNIQUE: Frontal view of the chest was obtained. FINDINGS: Lung volumes are symmetric. No focal consolidation is seen. No evidence of pneumothorax, pleural effusion, or overt pulmonary edema. The cardiomediastinal contour is unremarkable. Stents are redemonstrated in the right axillary, subclavian, and brachiocephalic region. No acute osseous findings are seen. XR/XR chest 1V IMPRESSION: No acute cardiopulmonary findings.
--- NOTE | ~2021-06-13 | XR_ITS ---
EXAMINATION: XR HIP, LEFT CLINICAL INFORMATION: Fall, pain COMPARISON: 12/24/2020 TECHNIQUE: Two views of the left hip. AP pelvis. FINDINGS: Alignment across the hips is anatomic with mild degenerative change and moderate spurring bilaterally. No acute fracture is seen. Sacroiliac joints and pubic symphysis appear intact. There are extensive vascular calcifications. XR/XR hip LT w PEL1V IMPRESSION: No acute osseous findings identified.
--- NOTE | ~2021-06-13 | XR_ITS ---
EXAMINATION: XR THORACOLUMBAR SPINE CLINICAL INFORMATION: Fall, pain worse left side COMPARISON: 12/24/2020 TECHNIQUE: 2 views of the thoracic spine. FINDINGS: Alignment in the thoracic spine appears anatomic. Vertebral body heights are maintained. No acute fracture is seen. Multilevel degenerative endplate changes are identified. Partially visualized stents in the right subclavian and brachiocephalic region. Surgical clips in the right upper quadrant of the abdomen. Included portions of the lungs appear well aerated. XR/XR thoracic spine 2V IMPRESSION: No acute findings identified.
--- NOTE | ~2021-06-13 | CT_ITS ---
EXAMINATION: NONCONTRAST HEAD CT NONCONTRAST CERVICAL SPINE CT INDICATION INFORMATION: Fall, pain COMPARISON: 06/25/2020 TECHNIQUE: Separate noncontrast CT examinations of the head and cervical spine were performed. Coronal head CT images and coronal and sagittal cervical spine images were created at the technologist workstation. DLP: 1613 mGy-cm DOSE LOWERING TECHNIQUES: This CT examination was performed using dose optimization techniques as appropriate, variously including the following: - Automated exposure control - Adjustment of mA and/or kV according to patient size (this includes techniques or standardized protocols for targeted exams were dose is matched to indication/reason for exam; i.e. extremities or head) - Use of iterative reconstruction technique FINDINGS: Head: There is no evidence of acute intracranial hemorrhage or territorial infarction. No abnormal mass-effect or midline shift is seen. Góme[place] to white matter differentiation is well preserved. No extra-axial fluid collections are identified. The ventricles are normal in size. There is mild periventricular white matter hypoattenuation consistent with chronic small vessel ischemic disease. Mild volume loss is noted. The osseous structures and soft tissues are normal. Mucous retention cyst is noted in the right maxillary sinus. The mastoid air cells are well-aerated. Cervical spine: There is anatomic alignment of the vertebral bodies and posterior elements. There is degenerative change at the atlantodens articulation. Vertebral body heights are maintained. There is redemonstrated degenerative change at C5-C6 with disc space narrowing and surrounding endplate irregularity. No evidence of acute fracture. No prevertebral soft tissue swelling. Visualized portions of the lung apices are unremarkable. The thyroid gland is unremarkable. CT/CT cervical spine wo con IMPRESSION: No acute findings identified in the head or cervical spine. Chronic and degenerative changes as noted above.
[2021-06-13 00:23] VITALS: BP 132/69; PULSE 60; O2SAT 98
--- NOTE | 2021-06-13 00:30 | PC.NURSE ---
pt to ed via ems with c/o back pain, in room for eval. Pt arrives alert, respirations easy, n/l. skin w/d. pt mostly sp speaking.
[2021-06-13 00:49] VITALS: BP 135/51; PULSE 68; RESP 16; TEMP 36.4; O2SAT 99; BMI 34.1
--- NOTE | 2021-06-13 00:50 | ECG_ITS ---
Test Reason : back pain Blood Pressure : / mmHG Vent. Rate : 069 BPM Atrial Rate : 069 BPM P-R Int : 148 ms QRS Dur : 096 ms QT Int : 456 ms P-R-T Axes : 052 -41 -15 degrees QTc Int : 488 ms Artifact in tracing Sinus rhythm with Premature atrial complexes in a pattern of bigeminy Possible Left atrial enlargement Left axis deviation Prolonged QT Abnormal ECG When compared with ECG of 24-DEC-2020 11:38, Premature atrial complexes are now Present Inverted T waves have replaced nonspecific T wave abnormality in Inferior leads Referred By: Chantel Pérez Electronically Signed By:THOM CABRAL
--- NOTE | 2021-06-13 01:05 | ED_ITS ---
HPI - General Adult General Chief complaint: Back Pain/Injury Stated complaint: back pain Time Seen by Provider: 06/13/21 00:34 Source: patient and EMS Mode of arrival: EMS Limitations: no limitations History of Present Illness HPI narrative: Patient comes to emergency room complaining of left-sided headache, left back pain, left hip pain. Patient states all of the symptoms started 2 days ago. Patient states the right side of his body feels fine. Patient denies any recent injury. However, patient did fall approximately 2 weeks ago, has been having mild pain, but 2 days ago the pain exacerbated. Patient states that the worst pain is in his left hip. Patient states that he missed dialysis yesterday. Oni cox denies shortness of breath or chest pain Related Data Home Medications Medication Instructions Recorded Confirmed aspirin 81 mg tablet,delayed 81 mg PO DAILY 08/07/20 12/24/20 release (Adult Low Dose Aspirin) clonidine HCl 0.2 mg tablet 0.2 mg PO TID 08/07/20 12/24/20 gabapentin 100 mg capsule 100 mg PO BEDTIME 08/07/20 12/24/20 pantoprazole 40 mg tablet,delayed 40 mg PO DAILY 08/07/20 12/24/20 release sertraline 100 mg tablet 100 mg PO DAILY 08/07/20 12/24/20 atorvastatin 40 mg tablet 40 mg PO DAILY 12/03/20 12/24/20 insulin degludec 200 unit/mL (3 24 unit SUBCUT BEDTIME 12/03/20 12/24/20 mL) subcutaneous pen nifedipine 90 mg tablet,extended 90 mg PO BID 12/03/20 12/24/20 release 24 hr acetaminophen 650 mg 1 tab PO Q8H PRN 12/24/20 12/24/20 tablet,extended release sevelamer carbonate 800 mg tablet 2,400 mg PO QIDWMHS 12/24/20 12/24/20 Previous Rx's Medication Instructions Recorded ticagrelor 90 mg tablet (Brilinta) 90 mg PO BID 90 Days #180 tab 01/29/21 isosorbide mononitrate 30 mg 30 mg PO QAM 90 Days #90 tab 02/20/21 tablet,extended release 24 hr carvedilol 12.5 mg tablet (Coreg) 12.5 mg PO BIDWM 30 Days #60 tab 04/22/21 Allergies Allergy/AdvReac Type Severity Reaction Status Date / Time No Known Allergies Allergy Verified 06/13/21 00:51 [No Known Allergies*] Review of Systems Verdana 4l Review of Systems: Verdana 4d Verdana 4d Constitutional : No Weight loss, No Fever, No Chills, No Night Sweats, No Fatigue, No Malaise ENT/Mouth : No Hearing loss, No Ear Pain, No Nasal Congestion, No Sinus Pain, No Hoarseness, No sore throat, No Rhinorrhea, No Swallowing DifficultyDifficulty Eyes: No Eye Pain, No Swelling, No Redness, No Foreign Body, No Discharge, No Vision Changes Cardiovascular : No Chest Pain, No SOB, No Dyspnea on Exertion, No Orthopnea, No Edema, No Palpitations Respiratory : No Cough, No Sputum, No Wheezing, No Smoke Exposure, No Dyspnea Gastrointestinal : No Nausea, No Vomiting, No Diarrhea, No Constipation, No a bdominal Pain, No Hematochezia, No Melena Genitourinary : no irregular bleeding, No Dysuria, No Urinary Frequency, No Hematuria, No Urinary Incontinence, No Urgency, No Flank Pain, No Urinary Flow Changes, No Hesitancy Musculoskeletal : Complaining of left-sided back pain and left-sided hip pain, complaining of left-sided neck pain Skin : No Skin Lesions, No rash Neuro : No Weakness, No Numbness, No Paresthesias, No Loss of Consciousness, No Dizziness, complaining of left-sided headache Headache Psych : No Anxiety/Panic, No Depression, No SI/HI/AH/VH, No Social Issues, Heme/Lymph: No Bruising, No Bleeding,No Lymphadenopathy Endocrine : No Polyuria, No Polydipsia, No Temperature Intolerance PMFSH Past Medical History Medical History (HFpEF) heart failure with preserved ejection fraction CAD (coronary artery disease) Diabetes mellitus End stage renal disease Frailty HTN (hypertension) Ischemic cardiomyopathy Surgical History Hx of cardiac cath Hx of cholecystectomy Hx of colonoscopy Hx of knee surgery Stented coronary artery Family History Family History Father No problems noted. Mother Diabetes Social History Social History Household Members: None Housing: Apartment Do you presently have visiting nurse or other home services: No Alcohol intake: former Patient Tobacco Use Status: Never used Tobacco Advance Directives: Yes Advance Directives on File: Yes Advance Directives Date on File: 12/25/20 service: No Current occupational status: disabled Physical Exam Verdana 4l Vital Signs: Verdana 4d Verdana 4d Vital Signs: Verdana 4d Verdana 4Bd Last Vital Signs Verdana 4d Attendance Officer New 4d Attendance Officer New 4d Temp 97.6 F 06/13/21 00:49 Attendance Officer New 4d Pulse 68 06/13/21 00:49 Attendance Officer New 4d Resp 16 06/13/21 00:49 BP 135/51 L 06/13/21 00:49 Pulse Ox 99 06/13/21 00:49 BMI result Body Mass Index 34.1 Const: Other: Appearance: Alert. Oriented X3. No acute distress. Eyes: Pupils equal, round and reactive to light. ENT: Pharynx normal. Neck: Normal inspection. Neck supple. No lymph nodes noted. No crepitus CVS: Normal heart rate and rhythm. Pulses normal. Normal S1 and S2 Respiratory: No respiratory distress. Breath sounds normal. No Wheezing. No rales Abdomen: Soft and nontender. No rigidity. No distention. Back: Pain to palpation over suppressed scapular area on the left side, all left side of the upper middle and lower back hurts, painful patient on the left hip Skin: Skin warm and dry. Normal skin color. Normal skin turgor. Extremities: +2 pitting edema bilaterally, No Lacerations. No Rash Neuro: Oriented X 3. No motor deficit. No sensory deficit. Moving all extermities. No slurred speech. Course Course Course Narrative: Patient's BUN and creatinine are elevated at baseline. Potassium was slightly elevated at 5.4, patient received IV insulin for hyperglycemia and for h yperkalemia, the glucose improved to 298 and potassium to 4.5. EKG shows no peak T-waves. Patient's imaging shows no acute findings. Patient was given tramadol and oxycodone, patient overall feeling better. Discussed with patient it is extremely important to call today to schedule at dialysis appointment. Patient states that the headache improved, no longer having backache. Patient is lying in bed comfortably. Medical Decision Making Lab Data Result diagrams: 06/13/21 01:07 06/13/21 03:07 Labs: Lab Results 06/13/21 06/13/21 06/13/21 Range/Units 01:07 01:07 01:07 WBC 8.7 (4.8-10.8) X10*3/uL RBC 2.52 L (4.60-5.80) X10*6/uL Hgb 8.0 L (14.0-18.0) g/dl Hct 24.3 L (42.0-52.0) % MCV 96.4 (80.0-98.0) fL MCH 31.7 (27.0-33.0) pg MCHC 32.9 (31.0-36.0) g/dl RDW 15.8 (11.0-16.0) % Plt Count 211 (160-400) X10*3/uL MPV 10.8 (9.4-12.4) fL Immature Gran % (Auto) 0.5 H (0.0-0.4) % Neut % (Auto) 78.2 H (45-73) % Lymph % (Auto) 11.5 L (20-40) % Sanborn % (Auto) 6.7 (2-11) % Eos % (Auto) 2.1 (0-4) % Baso % (Auto) 1.0 (0-2) % Lymph # (Auto) 1.0 L (1.2-4.9) X10*3/uL Sanborn # (Auto) 0.6 (0.1-1.2) X10*3/uL Eos # (Auto) 0.2 (0.0-0.4) X10*3/uL Baso # (Auto) 0.1 (0.0-0.2) X10*3/uL Abs Immat Gran (auto) 0.04 H (0.00-0.03) X10*3/uL Absolute Neuts (auto) 6.8 (2.0-8.3) x10*3/uL Absolute Nucleated RBC 0.020 H (0.0-0.012) X10*3/uL Nucleated RBC % (auto) 0.2 (0.0-0.2) /100WBC Sodium 137 (135-145) mmol/L Potassium 5.4 H D (3.3-5.1) mmol/L Chloride 98 (96-108) mmol/L Carbon Dioxide 20 L (22-29) mmol/L Anion Gap 24 H (12-20) BUN 65 H (9-16) mg/dL Creatinine 9.24 H* (0.5-1.4) mg/dL Estim Creat Clear Calc 8.5 Estimated GFR 6 Random Glucose 426 H* (60-115) mg/dL Calcium 8.9 D (8.4-10.2) mg/dL COVID-19 ([facility]) Negative (Negative) COVID-19 Clin Com See Note 06/13/21 Range/Units 03:07 WBC (4.8-10.8) X10*3/uL RBC (4.60-5.80) X10*6/uL Hgb (14.0-18.0) g/dl Hct (42.0-52.0) % MCV (80.0-98.0) fL MCH (27.0-33.0) pg MCHC (31.0-36.0) g/dl RDW (11.0-16.0) % Plt Count (160-400) X10*3/uL MPV (9.4-12.4) fL Immature Gran % (Auto) (0.0-0.4) % Neut % (Auto) (45-73) % Lymph % (Auto) (20-40) % Sanborn % (Auto) (2-11) % Eos % (Auto) (0-4) % Baso % (Auto) (0-2) % Lymph # (Auto) (1.2-4.9) X10*3/uL Sanborn # (Auto) (0.1-1.2) X10*3/uL Eos # (Auto) (0.0-0.4) X10*3/uL Baso # (Auto) (0.0-0.2) X10*3/uL Abs Immat Gran (auto) (0.00-0.03) X10*3/uL Absolute Neuts (auto) (2.0-8.3) x10*3/uL Absolute Nucleated RBC (0.0-0.012) X10*3/uL Nucleated RBC % (auto) (0.0-0.2) /100WBC Sodium 141 (135-145) mmol/L Potassium 4.5 (3.3-5.1) mmol/L Chloride 100 (96-108) mmol/L Carbon Dioxide 24 (22-29) mmol/L Anion Gap 22 H (12-20) BUN 68 H (9-16) mg/dL Creatinine 9.42 H* (0.5-1.4) mg/dL Estim Creat Clear Calc 8.3 Estimated GFR 6 Random Glucose 298 H (60-115) mg/dL Calcium 9.1 (8.4-10.2) mg/dL COVID-19 ([facility]) (Negative) COVID-19 Clin Com Imaging Data Head and cervical spine CT: Radiologist's impression: FINDINGS: Head: There is no evidence of acute intracranial hemorrhage or territorial infarction. No abnormal mass-effect or midline shift is seen. Gómez to white matter differentiation is well preserved. No extra-axial fluid collections are identified. The ventricles are normal in size. There is mild periventricular white matter hypoattenuation consistent with chronic small vessel ischemic disease. Mild volume loss is noted. The osseous structures and soft tissues are normal. Mucous retention cyst is noted in the right maxillary sinus. The mastoid air cells are well-aerated. Cervical spine: There is anatomic alignment of the vertebral bodies and posterior elements. There is degenerative change at the atlantodens articulation. Vertebral body heights are maintained. There is redemonstrated degenerative change at C5-C6 with disc space narrowing and surrounding endplate irregularity. No evidence of acute fracture. No prevertebral soft tissue swelling. Visualized portions of the lung apices are unremarkable. The thyroid gland is unremarkable. CT/CT cervical spine wo con IMPRESSION: No acute findings identified in the head or cervical spine. Chronic and degenerative changes as noted above. Chest x-ray: Radiologist's impression: FINDINGS: Lung volumes are symmetric. No focal consolidation is seen. No evidence of pneumothorax, pleural effusion, or overt pulmonary edema. The cardiomediastinal contour is unremarkable. Stents are redemonstrated in the right axillary, subclavian, and brachiocephalic region. No acute osseous findings are seen. XR/XR chest 1V IMPRESSION: No acute cardiopulmonary findings. Hip and pelvis x-ray: Radiologist's impression: Alignment across the hips is anatomic with mild degenerative change and moderate spurring bilaterally. No acute fracture is seen. Sacroiliac joints and pubic symphysis appear intact. There are extensive vascular calcifications. XR/XR hip LT w PEL1V IMPRESSION: No acute osseous findings identified ECG Data Attestation: I personally reviewed and interpreted this ECG as follows: (Sinus rhythm, heart rate 69, no ST segment depression elevation, nonspecific T-wave inversion in V3, no peak T-waves, QTC 488) Discharge Plan Discharge Clinical Impression: Back pain, Acute hyperkalemia, Acute hyperglycemia Patient Disposition: Home, Self-Care Instructions: Back Pain (ED) Additional Instructions: It is extremely important that you call today her dialysis center to schedule an appointment. Please follow-up with your primary care physician tomorrow. If you have any worsening or new symptoms, please return to the emergency room or call 911 Prescriptions: No Action Brilinta 90 mg tablet 90 mg PO BID 90 Days Qty: 180 1RF isosorbide mononitrate 30 mg tablet extended release 24 hr 30 mg PO QAM 90 Days Qty: 90 3RF Hold Instructions: Resume on 12/25/20. resume date to be determined carvedilol [Coreg] 12.5 mg tablet 12.5 mg PO BIDWM 30 Days Qty: 60 0RF Rx Instructions: must administer with a meal/food - must schedule cardiology appt for refills acetaminophen 650 mg tablet extended release 1 tab PO Q8H PRN (Reason: Pain) 0RF sevelamer carbonate 800 mg tablet 2,400 mg PO QIDWMHS 0RF Rx Instructions: 3 TABLETS TID WITH MEALS AND SNACK AT BEDTIME aspirin [Adult Low Dose Aspirin] 81 mg tablet,delayed release (DR/EC) 81 mg PO DAILY 0RF clonidine HCl 0.2 mg tablet 0.2 mg PO TID 0RF Hold Instructions: Resume on 01/01/21. resume date to be determined at HD gabapentin 100 mg capsule 100 mg PO BEDTIME 0RF pantoprazole 40 mg tablet,delayed release (DR/EC) 40 mg PO DAILY 0RF sertraline 100 mg tablet 100 mg PO DAILY 0RF atorvastatin 40 mg tablet 40 mg PO DAILY 0RF nifedipine 90 mg tablet extended release 24hr 90 mg PO BID 0RF Hold Instructions: Resume on 12/25/20. resume date to be determined insulin degludec 200 unit/mL (3 mL) insulin pen 24 unit subcut BEDTIME 0RF
[2021-06-13 01:13] LABS: MANUAL DIFF FLAG NO
[2021-06-13 01:14] LABS: Basophils Absolute Auto 0.1 X10*3/uL (0.0-0.2); Eosinophils Absolute Auto 0.2 X10*3/uL (0.0-0.4); Eosinophils Percent Auto 2.1 % (0-4); Hematocrit 24.3 % (42.0-52.0); Imm Gran Abs Auto 0.04 X10*3/uL (0.00-0.03); Imm Gran Pct Auto 0.5 % (0.0-0.4); Lymphocytes Percent Auto 11.5 % (20-40); Mean Corpuscular HGB Conc 32.9 g/dl (31.0-36.0); Mean Corpuscular Hemoglobin 31.7 pg (27.0-33.0); Mean Corpuscular Volume 96.4 fL (80.0-98.0); Mean Platelet Volume 10.8 fL (9.4-12.4); Monocytes Absolute Auto 0.6 X10*3/uL (0.1-1.2); Monocytes Percent Auto 6.7 % (2-11); NRBC Pct Auto 0.2 /100WBC (0.0-0.2); Neutrophils Absolute Auto 6.8 x10*3/uL (2.0-8.3); Neutrophils Percent Auto 78.2 % (45-73); Platelet Count 211 X10*3/uL (160-400); Red Blood Count 2.52 X10*6/uL (4.60-5.80); Red Cell Distribution Width 15.8 % (11.0-16.0); White Blood Count 8.7 X10*3/uL (4.8-10.8)
--- NOTE | 2021-06-13 01:20 | PC.NURSE ---
unable to place IV at this time. labs drawn to lab. pt medicated for pain.
[2021-06-13 01:27] LABS: COVID-19 Test Negative (Negative)
[2021-06-13 01:31] LABS: Anion Gap 24 (12-20); Blood Urea Nitrogen 65 mg/dL (9-16); Calcium 8.9 mg/dL (8.4-10.2); Carbon Dioxide 20 mmol/L (22-29); Chloride 98 mmol/L (96-108); Creatinine Clr Calc Pharmacy 8.5; Estimated Glomerular Filt Rate 6; Glucose Random 426 mg/dL (60-115); Potassium 5.4 mmol/L (3.3-5.1); Sodium 137 mmol/L (135-145)
[2021-06-13 02:00] VITALS: BP 134/58; PULSE 69; RESP 16
[2021-06-13] MEDS: traMADoL HCL 50 MG TABLET PO (02:17)
[2021-06-13] MEDS: Insulin Regular, Human 100 UNIT/ML 3 ML VIAL 10 UNIT IVPUSH (02:24)
[2021-06-13 03:36] LABS: Anion Gap 22 (12-20); Blood Urea Nitrogen 68 mg/dL (9-16); Calcium 9.1 mg/dL (8.4-10.2); Carbon Dioxide 24 mmol/L (22-29); Chloride 100 mmol/L (96-108); Creatinine Clr Calc Pharmacy 8.3; Estimated Glomerular Filt Rate 6; Glucose Random 298 mg/dL (60-115); Potassium 4.5 mmol/L (3.3-5.1); Sodium 141 mmol/L (135-145)
[2021-06-13] MEDS: oxyCODONE HCl Immed Release 5 MG TABLET PO (04:06)
== END 2021-06-13 04:38 | disposition home or self-care (01) ==
PROVIDERS: Emergency Provider Emergency Medicine
DX: M54.9 Dorsalgia, unspecified (principal); E87.5 Hyperkalemia; E11.22 Type 2 diabetes mellitus with diabetic chronic kidney disease; E11.65 Type 2 diabetes mellitus with hyperglycemia; I13.2 Hypertensive heart and chronic kidney disease with heart failure and with stage 5 chronic kidney disease, or end stage renal disease; I50.9 Heart failure, unspecified; N18.6 End stage renal disease; Z99.2 Dependence on renal dialysis; Z20.822 Contact with and (suspected) exposure to COVID-19; M25.552 Pain in left hip; M54.2 Cervicalgia; R51.9 Headache, unspecified; Z79.4 Long term (current) use of insulin; Z79.82 Long term (current) use of aspirin
CPT/HCPCS: 36415; 70450; 71045; 72070; 72125; 73502; 80048; 85025; 87635; 93005; 99284

== ENCOUNTER 2021-09-28 12:16 | Inpatient (IN) | payer MEDICARE, SELFPAY ==
[2021-09-28] VITALS (12 sets, daily range): BP systolic 152–196; BP diastolic 62–84; PULSE 76–97; RESP 23–38; TEMP 36.5–37.9; O2SAT 88–97; BMI 26.9
--- NOTE | ~2021-09-28 | XR_ITS ---
EXAMINATION: XR CHEST CLINICAL INFORMATION: Cough COMPARISON: June 13, 2021 TECHNIQUE: AP portable view of the chest was obtained. FINDINGS: There is no evidence of acute parenchymal disease, pneumothorax, or pleural effusion. Heart normal size. No evidence of pulmonary edema. Vascular stents are seen overlying the region of the superior vena cava, subclavian, and axillary veins. XR/XR chest 1V IMPRESSION: No acute disease.
--- NOTE | 2021-09-28 12:38 | ECG_ITS ---
Test Reason : AMS Blood Pressure : / mmHG Vent. Rate : 096 BPM Atrial Rate : 096 BPM P-R Int : 142 ms QRS Dur : 086 ms QT Int : 372 ms P-R-T Axes : 048 -41 004 degrees QTc Int : 469 ms Normal sinus rhythm Left axis deviation Septal infarct , age undetermined Abnormal ECG When compared with ECG of 13-JUN-2021 01:35, Premature atrial complexes are no longer Present Referred By: Deana Benjamin Electronically Signed By:Shekhar Shepherd
--- NOTE | 2021-09-28 12:39 | ED_ITS ---
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 Responded to glucose from EMS. oral glucose given has bruise to L upper arm from shingles injection on wednesday as well MD complaint: weakness, doesn't feel well Onset (ago): day(s) (middle of night ) Severity: moderate Quality: aching Relieving factors: other (oral glucose) Exacerbating factors: none Associated symptoms: cough, loss of appetite, malaise and weakness Treatments prior to arrival: other (glucos by EMS found to be 46 repeat 78) Related Data Home Medications Medication Instructions Recorded Confirmed aspirin 81 mg tablet,delayed 81 mg PO DAILY 08/07/20 09/28/21 release (Adult Low Dose Aspirin) gabapentin 100 mg capsule 100 mg PO BID 08/07/20 09/28/21 pantoprazole 40 mg tablet,delayed 40 mg PO DAILY@0630 08/07/20 09/28/21 release sertraline 100 mg tablet 100 mg PO DAILY 08/07/20 09/28/21 atorvastatin 40 mg tablet 40 mg PO BEDTIME 12/03/20 09/28/21 insulin degludec 200 unit/mL (3 24 unit SUBCUT BEDTIME 12/03/20 09/28/21 mL) subcutaneous pen acetaminophen 650 mg 1 tab PO Q8H PRN 12/24/20 09/28/21 tablet,extended release sevelamer carbonate 800 mg tablet 2,400 mg PO QIDWMHS 12/24/20 09/28/21 amlodipine 10 mg tablet 1 tab PO DAILY 09/28/21 09/28/21 insulin lispro 100 unit/mL See Protocol SUBCUT TIDAC 09/28/21 09/28/21 subcutaneous pen (Humalog KwikPen (U-100) Insulin) isosorbide mononitrate 30 mg 30 mg PO DAILY 09/28/21 09/28/21 tablet,extended release 24 hr lidocaine 5 % topical ointment 1 appl TOPICAL DAILY 09/28/21 09/28/21 losartan 50 mg tablet 1 tab PO DAILY 09/28/21 09/28/21 meclizine 12.5 mg tablet 1 tab PO TID PRN 09/28/21 09/28/21 sennosides 8.6 mg tablet (senna) 2 tab PO BEDTIME PRN 09/28/21 09/28/21 Previous Rx's Medication Instructions Recorded carvedilol 12.5 mg tablet (Coreg) 12.5 mg PO BIDWM 30 Days #60 tab 07/02/21 ticagrelor 90 mg tablet (Brilinta) 90 mg PO BID 90 Days #180 tab 09/24/21 Allergies Allergy/AdvReac Type Severity Reaction Status Date / Time No Known Allergies Allergy Verified 06/13/21 00:51 [No Known Allergies*] Review of Systems Review of Systems: Constitutional : No Fever, pos Chills, pos Fatigue, pos Malaise ENT/Mouth : No sore throat, No Rhinorrhea Eyes: No Eye Pain, No Swelling, No Redness Cardiovascular : No Chest Pain, pos SOB, No Dyspnea on Exertion, No Orthopnea, No Edema, No Palpitations Respiratory : pos Cough, No Sputum, pos Wheezing Gastrointestinal : No Nausea, No Vomiting, No abdominal Pain, No Hematochezia, No Melena Genitourinary : No Dysuria, No Urinary Frequency, No Hematuria, Musculoskeletal : No joint pain, pos Myalgias, No Joint Swelling Skin : No Skin Lesions, No rash Neuro : pos Weakness, No Numbness, No Dizziness, No Headache Psych : No Anxiety/Panic, No Depression All other systems reviewed and are negative [facility] Past Medical History Attestation statement: The following information was validated with the patient. Source: old records reviewed Medical History (HFpEF) heart failure with preserved ejection fraction CAD (coronary artery disease) Diabetes mellitus End stage renal disease Frailty HTN (hypertension) Ischemic cardiomyopathy Surgical History Hx of cardiac cath Hx of cholecystectomy Hx of colonoscopy Hx of knee surgery Stented coronary artery Family History Family History Father No problems noted. Mother Diabetes Social History Social History Household Members: None Housing: Apartment Do you presently have visiting nurse or other home services: No Alcohol intake: never Patient Tobacco Use Status: Never used Tobacco Use of substances other than those prescribed or required for medical reasons: No Advance Directives: Yes Advance Directives on File: Yes Advance Directives Date on File: 12/25/20 service: No Current occupational status: disabled Physical Exam ED Vital Signs: Vital Signs - 24 hr 09/28/21 12:22 09/28/21 13:05 09/28/21 13:21 Temperature 99.3 F Pulse Rate 97 94 Respiratory Rate 30 H 32 H 32 H Blood Pressure 183/71 H Pulse Oximetry 94 95 09/28/21 14:14 Temperature 99.6 F Pulse Rate 93 Respiratory Rate 28 H Blood Pressure 160/80 H Pulse Oximetry 94 BMI result Body Mass Index 26.9 Appearance: Alert. Oriented X3. Mild acute distress. Eyes: Pupils equal, round and reactive to light. ENT: Pharynx normal. Neck: Normal inspection. Neck supple. CVS: Normal heart rate and rhythm. Pulses normal. Respiratory: Mild respiratory distress - tachypnea. Breath sounds decreased with mild exp wheezes noted Abdomen: Soft and non-tender. Skin: Skin warm and dry. Normal skin color. Normal skin turgor. Extremities: No lower extremity edema. Neuro: Oriented X 3. No motor deficit. No sensory deficit. Course Course Course Narrative: pos for flu - he is very weak he cannot even hold his own neb treatment, BS up he now notes he didn't eat all day, given degree of weakness anticipate he will need admission 30mg tamiflu ordered patient very weak not eating, tachypnea, cannot get out of bed, would not be suitable for PT/rehab at this time will admit for monitoring patient notes he did not hit his head or fall and has no headache Medical Decision Making MDM Narrative Medical decision making narrative: 66 yo male with hx of DM, ESR on HD T Th S did go yesterday, HTN, CAD s/p recent STEMI on aspirin and brilinta, CHF, comes in not feeling well he was found to be confused with a low blood sugar given oral glucose he is warm to the touch with increased respiratory rate and coarse cough - he states this started last night. He did go to HD yesterday and is vaccinated against COVID. At this time will need labs, cultures, flu/COVID swabs, CXR and albuterol/tylenol treatment. Possible admit. Lab Data Result diagrams: 09/28/21 12:59 09/28/21 12:59 Labs: Lab Results 09/28/21 09/28/21 09/28/21 Range/Units 12:39 12:59 12:59 WBC 12.1 H (4.8-10.8) X10*3/uL RBC 3.87 L D (4.60-5.80) X10*6/uL Hgb 11.1 L D (14.0-18.0) g/dl Hct 35.9 L D (42.0-52.0) % MCV 92.8 (80.0-98.0) fL MCH 28.7 (27.0-33.0) pg MCHC 30.9 L (31.0-36.0) g/dl RDW 16.0 (11.0-16.0) % Plt Count 212 (160-400) X10*3/uL MPV 11.3 (9.4-12.4) fL Immature Gran % (Auto) 0.4 (0.0-0.4) % Neut % (Auto) 88.2 H (45-73) % Lymph % (Auto) 4.6 L (20-40) % [place] % (Auto) 6.3 (2-11) % Eos % (Auto) 0.1 (0-4) % Baso % (Auto) 0.4 (0-2) % Lymph # (Auto) 0.6 L (1.2-4.9) X10*3/uL [place] # (Auto) 0.8 (0.1-1.2) X10*3/uL Eos # (Auto) 0.0 (0.0-0.4) X10*3/uL Baso # (Auto) 0.1 (0.0-0.2) X10*3/uL Abs Immat Gran (auto) 0.05 H (0.00-0.03) X10*3/uL Absolute Neuts (auto) 10.6 H (2.0-8.3) x10*3/uL Absolute Nucleated RBC 0.000 (0.0-0.012) X10*3/uL Nucleated RBC % (auto) 0.0 (0.0-0.2) /100WBC Sodium 139 (135-145) mmol/L Potassium 4.7 (3.3-5.1) mmol/L Chloride 96 (96-108) mmol/L Carbon Dioxide 27 (22-29) mmol/L Anion Gap 21 H (12-20) BUN 37 H (9-16) mg/dL Creatinine 6.48 H* (0.5-1.4) mg/dL Estim Creat Clear Calc 11.4 Estimated GFR 9 POC Glucose 107 (60-115) mg/dL Random Glucose 128 H D (60-115) mg/dL Lactic Acid (0.5-2.0) mmol/L Calcium 9.5 (8.4-10.2) mg/dL Magnesium 2.6 (1.6-2.6) mg/dL Total Bilirubin 0.7 (0.0-1.0) mg/dL Direct Bilirubin 0.3 (0.0-0.5) mg/dL AST 15 D (5-37) U/L ALT 10 (0-40) U/L Alkaline Phosphatase 120 H (39-117) U/L Total Protein 8.5 H (6.5-8.0) g/dL Albumin 4.3 (3.5-5.0) g/dL COVID-19 ([facility]) (Negative) COVID-19 Clin Com Influenza Type A ([facility]) (Negative) Influenza Type B ([facility]) (Negative) Influenza A & B Note 09/28/21 09/28/21 09/28/21 Range/Units 12:59 13:00 13:00 WBC (4.8-10.8) X10*3/uL RBC (4.60-5.80) X10*6/uL Hgb (14.0-18.0) g/dl Hct (42.0-52.0) % MCV (80.0-98.0) fL MCH (27.0-33.0) pg MCHC (31.0-36.0) g/dl RDW (11.0-16.0) % Plt Count (160-400) X10*3/uL MPV (9.4-12.4) fL Immature Gran % (Auto) (0.0-0.4) % Neut % (Auto) (45-73) % Lymph % (Auto) (20-40) % [place] % (Auto) (2-11) % Eos % (Auto) (0-4) % Baso % (Auto) (0-2) % Lymph # (Auto) (1.2-4.9) X10*3/uL [place] # (Auto) (0.1-1.2) X10*3/uL Eos # (Auto) (0.0-0.4) X10*3/uL Baso # (Auto) (0.0-0.2) X10*3/uL Abs Immat Gran (auto) (0.00-0.03) X10*3/uL Absolute Neuts (auto) (2.0-8.3) x10*3/uL Absolute Nucleated RBC (0.0-0.012) X10*3/uL Nucleated RBC % (auto) (0.0-0.2) /100WBC Sodium (135-145) mmol/L Potassium (3.3-5.1) mmol/L Chloride (96-108) mmol/L Carbon Dioxide (22-29) mmol/L Anion Gap (12-20) BUN (9-16) mg/dL Creatinine (0.5-1.4) mg/dL Estim Creat Clear Calc Estimated GFR POC Glucose (60-115) mg/dL Random Glucose (60-115) mg/dL Lactic Acid 1.7 (0.5-2.0) mmol/L Calcium (8.4-10.2) mg/dL Magnesium (1.6-2.6) mg/dL Total Bilirubin (0.0-1.0) mg/dL Direct Bilirubin (0.0-0.5) mg/dL AST (5-37) U/L ALT (0-40) U/L Alkaline Phosphatase (39-117) U/L Total Protein (6.5-8.0) g/dL Albumin (3.5-5.0) g/dL COVID-19 ([facility]) Negative (Negative) COVID-19 Clin Com See Note Influenza Type A ([facility]) Positive A (Negative) Influenza Type B ([facility]) Negative (Negative) Influenza A & B Note See Note 09/28/21 Range/Units 13:54 WBC (4.8-10.8) X10*3/uL RBC (4.60-5.80) X10*6/uL Hgb (14.0-18.0) g/dl Hct (42.0-52.0) % MCV (80.0-98.0) fL MCH (27.0-33.0) pg MCHC (31.0-36.0) g/dl RDW (11.0-16.0) % Plt Count (160-400) X10*3/uL MPV (9.4-12.4) fL Immature Gran % (Auto) (0.0-0.4) % Neut % (Auto) (45-73) % Lymph % (Auto) (20-40) % [place] % (Auto) (2-11) % Eos % (Auto) (0-4) % Baso % (Auto) (0-2) % Lymph # (Auto) (1.2-4.9) X10*3/uL [place] # (Auto) (0.1-1.2) X10*3/uL Eos # (Auto) (0.0-0.4) X10*3/uL Baso # (Auto) (0.0-0.2) X10*3/uL Abs Immat Gran (auto) (0.00-0.03) X10*3/uL Absolute Neuts (auto) (2.0-8.3) x10*3/uL Absolute Nucleated RBC (0.0-0.012) X10*3/uL Nucleated RBC % (auto) (0.0-0.2) /100WBC Sodium (135-145) mmol/L Potassium (3.3-5.1) mmol/L Chloride (96-108) mmol/L Carbon Dioxide (22-29) mmol/L Anion Gap (12-20) BUN (9-16) mg/dL Creatinine (0.5-1.4) mg/dL Estim Creat Clear Calc Estimated GFR POC Glucose 126 H (60-115) mg/dL Random Glucose (60-115) mg/dL Lactic Acid (0.5-2.0) mmol/L Calcium (8.4-10.2) mg/dL Magnesium (1.6-2.6) mg/dL Total Bilirubin (0.0-1.0) mg/dL Direct Bilirubin (0.0-0.5) mg/dL AST (5-37) U/L ALT (0-40) U/L Alkaline Phosphatase (39-117) U/L Total Protein (6.5-8.0) g/dL Albumin (3.5-5.0) g/dL COVID-19 ([facility]) (Negative) COVID-19 Clin Com Influenza Type A ([facility]) (Negative) Influenza Type B ([facility]) (Negative) Influenza A & B Note ECG Data Attestation: I personally reviewed and interpreted this ECG as follows: Interpretation: Rate: 96 Rhythm: NSR [place]: left Normal P waves. Normal DAHLIA. Normal QRS complex. ST T wave : no FAN, nonspecific qTC: normal prior studies: no acute ischemia The study has been interpreted contemporaneously by me. . Discharge Plan Discharge Clinical Impression: Weakness, Influenza A, Hypoglycemia Patient Disposition: Admitted As Inpatient
--- NOTE | 2021-09-28 12:44 | PC.NURSE ---
Pt tachipnic, audible wheezes, skin pwd. axox3. nsr on monitor. states resp is always like this . no unilat neuro deficits. no pedal edema.
[2021-09-28 13:01] LABS: Glucose, Whole Blood 107 mg/dL (60-115)
[2021-09-28] MEDS: Albuterol Sulfate (0.083%) 2.5 MG/3 ML VIAL.NEB INHALE (13:20)
[2021-09-28 13:31] LABS: MANUAL DIFF FLAG NO
--- NOTE | 2021-09-28 13:32 | PC.NURSE ---
encouraged to sit uo and eat sandwich. pt is tired. not eating much. wheeze has improved
[2021-09-28 13:35] LABS: Basophils Absolute Auto 0.1 X10*3/uL (0.0-0.2); Basophils Percent Auto 0.4 % (0-2); Eosinophils Percent Auto 0.1 % (0-4); Hematocrit 35.9 % (42.0-52.0); Hemoglobin 11.1 g/dl (14.0-18.0); Imm Gran Abs Auto 0.05 X10*3/uL (0.00-0.03); Imm Gran Pct Auto 0.4 % (0.0-0.4); Lymphocytes Absolute Auto 0.6 X10*3/uL (1.2-4.9); Lymphocytes Percent Auto 4.6 % (20-40); Mean Corpuscular HGB Conc 30.9 g/dl (31.0-36.0); Mean Corpuscular Hemoglobin 28.7 pg (27.0-33.0); Mean Corpuscular Volume 92.8 fL (80.0-98.0); Mean Platelet Volume 11.3 fL (9.4-12.4); Monocytes Absolute Auto 0.8 X10*3/uL (0.1-1.2); Monocytes Percent Auto 6.3 % (2-11); Neutrophils Absolute Auto 10.6 x10*3/uL (2.0-8.3); Neutrophils Percent Auto 88.2 % (45-73); Platelet Count 212 X10*3/uL (160-400); Red Blood Count 3.87 X10*6/uL (4.60-5.80); White Blood Count 12.1 X10*3/uL (4.8-10.8)
[2021-09-28 13:42] LABS: Lactic Acid 1.7 mmol/L (0.5-2.0)
[2021-09-28 13:53] LABS: COVID-19 Test Negative (Negative); IDNOW Serial# 55D5AD1C
[2021-09-28 13:54] LABS: IDNOW Serial# 9DB6401D; Influenza A Positive (Negative); Influenza B2 Negative (Negative)
[2021-09-28] MEDS: Acetaminophen 325 MG TABLET 650 MG PO (13:59)
[2021-09-28 14:00] LABS: Glucose, Whole Blood 126 mg/dL (60-115)
[2021-09-28 14:09] LABS: Alanine Aminotransferase 10 U/L (0-40); Albumin Level 4.3 g/dL (3.5-5.0); Alkaline Phosphatase 120 U/L (39-117); Anion Gap 21 (12-20); Aspartate Amino Transferase 15 U/L (5-37); Bilirubin Direct 0.3 mg/dL (0.0-0.5); Bilirubin Total 0.7 mg/dL (0.0-1.0); Blood Urea Nitrogen 37 mg/dL (9-16); Calcium 9.5 mg/dL (8.4-10.2); Carbon Dioxide 27 mmol/L (22-29); Chloride 96 mmol/L (96-108); Creatinine Clr Calc Pharmacy 11.4; Estimated Glomerular Filt Rate 9; Glucose Random 128 mg/dL (60-115); Magnesium 2.6 mg/dL (1.6-2.6); Potassium 4.7 mmol/L (3.3-5.1); Sodium 139 mmol/L (135-145); Total Protein 8.5 g/dL (6.5-8.0)
--- NOTE | 2021-09-28 14:11 | PC.NURSE ---
sitting patient up for lunch. full feed. pt feels too tired to feed himself.
[2021-09-28] MEDS: Oseltamivir Phosphate 30 MG CAPSULE PO (14:12)
--- NOTE | 2021-09-28 14:21 | PHA.MEDREC ---
Pharmacy Consult ? Medication Reconciliation Pharmacy has completed the medication reconciliation.med rec completed per claim history. tried to contact patients daughter but no answer.
[2021-09-28 16:24] LABS: B Type Natriuretic Peptide 497 pg/mL (<100)
[2021-09-28 17:20] LABS: Glucose, Whole Blood 156 mg/dL (60-115)
--- NOTE | 2021-09-28 17:28 | PC.NURSE ---
spoke w hospitalist. holding po medication - pt vomited and is feeling nauseous.
--- NOTE | 2021-09-28 17:31 | P.HPHOSP_ITS ---
History of Present Illness Date of Service: 09/28/21 Chief Complaint: Weakness 66 yo male with hx of DM, ESR on HD T S did go yesterday, HTN, CAD s/p recent STEMI on aspirin and brilinta, CHF, comes in not feeling well short of breath, weak, found confused with low blood sugars cannot elaborate more on what hap pened but notes he just overall doesn't feel well. Responded to glucose from EMS. oral glucose given ER course Given Tamiflu orally. Chest x-ray and lab ; white count 12.1; creatinine 6.48 (HD on Wednesday. . . Did complete dialysis yesterday) and influenza swab positive for influenza A. Will be admitted for further workup and treatment Review of Systems Review of Systems: Unable to obtain [facility] Medical History (HFpEF) heart failure with preserved ejection fraction CAD (coronary artery disease) Diabetes mellitus End stage renal disease Frailty HTN (hypertension) Ischemic cardiomyopathy Family History Father No problems noted. Mother Diabetes Surgical History Hx of cardiac cath Hx of cholecystectomy Hx of colonoscopy Hx of knee surgery Stented coronary artery Social History Household Members: None Housing: Apartment Do you presently have visiting nurse or other home services: No Alcohol intake: never Patient Tobacco Use Status: Never used Tobacco Use of substances other than those prescribed or required for medical reasons: No Advance Directives: Yes Advance Directives on File: Yes Advance Directives Date on File: 12/25/20 service: No Current occupational status: disabled Meds Allergies Allergy/AdvReac Type Severity Reaction Status Date / Time No Known Allergies Allergy Verified 06/13/21 00:51 [No Known Allergies*] Active Medications: Current Medications Albuterol/Ipratropium (Albuterol/Iprat 2.5/0.5mg 3 Ml Ampul.Neb) 3 ml INHALE RQ4H WHILE AWAKE [facility] Amlodipine Besylate (Amlodipine Besylate 10 Mg Tablet) 10 mg PO DAILY [facility]; Protocol Aspirin (Aspirin Enteric Coated 81 Mg Tablet.) 81 mg PO DAILY [facility] Atorvastatin Calcium (Atorvastatin Calcium 40 Mg Tablet) 40 mg PO BEDTIME [facility] Carvedilol (Carvedilol 12.5 Mg Tablet) 12.5 mg PO BIDWM [facility]; Protocol Gabapentin (Gabapentin 100 Mg Capsule) 100 mg PO BID [facility] Heparin Sodium (Porcine) (Heparin Sodium,Porcine 5,000 Unit/Ml Vial) 5,000 unit SUBCUT Q12H [facility] Insulin Glargine (Insulin Glargine,Hum.Rec.Anlog 100 Unit/Ml 10 Ml Vial) 17 u nit SUBCUT BEDTIME [facility] Insulin Human Lispro (Insulin Lispro 100 Unit/Ml 3 Ml Vial) 0 unit SUBCUT TIDAC [facility]; Protocol Losartan Potassium (Losartan Potassium 50 Mg Tablet) 50 mg PO DAILY [place]; Protocol Meclizine HCl (Meclizine Hcl 12.5 Mg Tablet) 12.5 mg PO TID PRN PRN Reason: Dizziness Nitroglycerin (Nitroglycerin 2 % Oint 1 Gm Packet) 1 inch TRANSDERMA RQ6H WHILE AWAKE [facility] Omeprazole (Omeprazole 20 Mg Capsule.) 20 mg PO DAILY@0630 [facility] Oseltamivir Phosphate (Oseltamivir Phosphate 30 Mg Capsule) 30 mg PO Q24H [facility] Stop: 10/02/21 14:01 Pharmacy Consult (Consult Rx Perform Med Rec) 1 each MISCELLANE ONCE PRN PRN Reason: Consult order Senna (Sennosides 8.6 Mg Tablet) 17.2 mg PO BEDTIME PRN PRN Reason: Constipation Sertraline HCl (Sertraline Hcl 100 Mg Tablet) 100 mg PO DAILY [facility] Sevelamer Carbonate (Sevelamer Carbonate Tablet 800 Mg Tablet) 2,400 mg PO QIDWMHS [facility] Sodium Chloride (0.9 % Sodium Chloride Flush 3 Ml Syringe) 3 ml IVFLUSH QSHIFT [facility] Ticagrelor (Ticagrelor 90 Mg Tablet) 90 mg PO BID [facility] Home Medications Medication Instructions Recorded Confirmed Last Taken Type aspirin 81 mg tablet,delayed 81 mg PO DAILY 08/07/20 09/28/21 Unknown History release (Adult Low Dose Aspirin) gabapentin 100 mg capsule 100 mg PO BID 08/07/20 09/28/21 Unknown History pantoprazole 40 mg tablet,delayed 40 mg PO DAILY@0630 08/07/20 09/28/21 Unknown History release sertraline 100 mg tablet 100 mg PO DAILY 08/07/20 09/28/21 Unknown History atorvastatin 40 mg tablet 40 mg PO BEDTIME 12/03/20 09/28/21 Unknown History insulin degludec 200 unit/mL (3 24 unit SUBCUT BEDTIME 12/03/20 09/28/21 Unknown History mL) subcutaneous pen acetaminophen 650 mg 1 tab PO Q8H PRN 12/24/20 09/28/21 Unknown History tablet,extended release sevelamer carbonate 800 mg tablet 2,400 mg PO QIDWMHS 12/24/20 09/28/21 Unknown History amlodipine 10 mg tablet 1 tab PO DAILY 09/28/21 09/28/21 Unknown History insulin lispro 100 unit/mL See Protocol SUBCUT TIDAC 09/28/21 09/28/21 Unknown History subcutaneous pen (Humalog KwikPen (U-100) Insulin) isosorbide mononitrate 30 mg 30 mg PO DAILY 09/28/21 09/28/21 Unknown History tablet,extended release 24 hr lidocaine 5 % topical ointment 1 appl TOPICAL DAILY 09/28/21 09/28/21 Unknown History losartan 50 mg tablet 1 tab PO DAILY 09/28/21 09/28/21 Unknown History meclizine 12.5 mg tablet 1 tab PO TID PRN 09/28/21 09/28/21 Unknown History sennosides 8.6 mg tablet (senna) 2 tab PO BEDTIME PRN 09/28/21 09/28/21 Unknown History Physical Exam Vital Signs and Narrative: Vital Signs: Last Vital Signs Temp 99.6 F 09/28/21 14:14 Pulse 86 09/28/21 15:43 Resp 38 H 09/28/21 15:43 BP 174/63 H 09/28/21 15:43 Pulse Ox 92 09/28/21 15:43 BMI result Body Mass Index 26.9 Const: Other: Somnolent but arousable Resp: Other: Diffuse expiratory wheezes throughout Cardio: Other: No S4; positive S1-S2; no S3 murmurs rubs or gallops GI: Other: Obese soft nontender nondistended with normoactive bowel sounds Extrem: Other: No edema Results Labs CBC and Chem 7: 09/28/21 12:59 09/28/21 12:59 Labs: Laboratory Results - last 24 hr 09/28/21 09/28/21 09/28/21 12:39 12:59 12:59 MCV 92.8 MCH 28.7 MCHC 30.9 L RDW 16.0 Plt Count 212 MPV 11.3 Immature Gran % (Auto) 0.4 Neut % (Auto) 88.2 H Lymph % (Auto) 4.6 L Phelps % (Auto) 6.3 Eos % (Auto) 0.1 Baso % (Auto) 0.4 Lymph # (Auto) 0.6 L Phelps # (Auto) 0.8 Eos # (Auto) 0.0 Baso # (Auto) 0.1 Abs Immat Gran (auto) 0.05 H Absolute Neuts (auto) 10.6 H Absolute Nucleated RBC 0.000 Nucleated RBC % (auto) 0.0 Anion Gap 21 H Estim Creat Clear Calc 11.4 Estimated GFR 9 POC Glucose 107 Random Glucose 128 H D Lactic Acid Calcium 9.5 Magnesium 2.6 Total Bilirubin 0.7 Direct Bilirubin 0.3 AST 15 D ALT 10 Alkaline Phosphatase 120 H B-Natriuretic Peptide Total Protein 8.5 H Albumin 4.3 COVID-19 ([facility]) COVID-19 Clin Com Influenza Type A ([facility]) Influenza Type B ([facility]) Influenza A & B Note 09/28/21 09/28/21 09/28/21 12:59 12:59 13:00 MCV MCH MCHC RDW Plt Count MPV Immature Gran % (Auto) Neut % (Auto) Lymph % (Auto) Phelps % (Auto) Eos % (Auto) Baso % (Auto) Lymph # (Auto) Phelps # (Auto) Eos # (Auto) Baso # (Auto) Abs Immat Gran (auto) Absolute Neuts (auto) Absolute Nucleated RBC Nucleated RBC % (auto) Anion Gap Estim Creat Clear Calc Estimated GFR POC Glucose Random Glucose Lactic Acid 1.7 Calcium Magnesium Total Bilirubin Direct Bilirubin AST ALT Alkaline Phosphatase B-Natriuretic Peptide 497 H Total Protein Albumin COVID-19 ([facility]) COVID-19 Clin Com Influenza Type A ([facility]) Positive A Influenza Type B ([facility]) Negative Influenza A & B Note See Note 09/28/21 09/28/21 09/28/21 13:00 13:54 17:14 MCV MCH MCHC RDW Plt Count MPV Immature Gran % (Auto) Neut % (Auto) Lymph % (Auto) Phelps % (Auto) Eos % (Auto) Baso % (Auto) Lymph # (Auto) Phelps # (Auto) Eos # (Auto) Baso # (Auto) Abs Immat Gran (auto) Absolute Neuts (auto) Absolute Nucleated RBC Nucleated RBC % (auto) Anion Gap Estim Creat Clear Calc Estimated GFR POC Glucose 126 H 156 H Random Glucose Lactic Acid Calcium Magnesium Total Bilirubin Direct Bilirubin AST ALT Alkaline Phosphatase B-Natriuretic Peptide Total Protein Albumin COVID-19 ([facility]) Negative COVID-19 Clin Com See Note Influenza Type A ([facility]) Influenza Type B ([facility]) Influenza A & B Note Imaging Radiologist's Impressions: Impressions Chest X-Ray 09/28/21 13:06 IMPRESSION: No acute disease. Assessment and Plan (1) Influenza A: Status: Acute (2) (HFpEF) heart failure with preserved ejection fraction: Status: Acute (3) End stage renal disease: Status: Acute (4) HTN (hypertension): Status: Acute (5) CAD (coronary artery disease): Status: Acute (6) Diabetes mellitus: Status: Acute Plan 66 yo male with hx of DM, ESR on HD T Th S did go yesterday, HTN, CAD s/p recent STEMI on aspirin and brilinta, CHF, comes in not feeling well short of breath, weak, found confused with low blood?sugars. Responded to glucose. Influenza A positive. Noted to have diffuse wheezing unresponsive to albuterol neb; chest x-ray without occult failure 1. Influenza A -Tamiflu renally dosed -supportive care 2. HFp EF and backdrop of recent MRI -concern for cardiac wheezing; BNP elevated at 640 despite dialysis yesterday -IV Lasix 40 mg x1; DC Imdur; replace with nitro paste 2% 1 in q.6 -additional dose of losartan 50 mg tonight...aggressive afterload reduction -2D echo in a.m. 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 4. Hypertension -poorly control -add additional 50 mg of losartan tonight; increase dose to 100 daily in a.m. -nitropaste as per 2. -adjust as indicated 5. Type 2 diabetes -given relative hypoglycemia will hold long-acting insulin -list pro correctional scale with TID-AC ,HS POCs Full code Lovenox Will require 2 midnights going forward for treatment of likely CHF back exacerbate fofana in the backdrop of influenza a. This cannot be achieved in the lesser acute setting Quality Stroke Does the patient have a stroke diagnosis?: No VTE Prior VTE?: No VTE Risk Level:: Medical - moderate - high VTE Device Contraindication: Treatment Not Indicated VTE Drug Contraindication: N/A - Med Ordered
[2021-09-28] MEDS: 0.9 % Sodium Chloride Flush 3 ML SYRINGE IVFLUSH (18:12)
[2021-09-28] MEDS: Heparin Sodium,Porcine 5,000 UNIT/ML VIAL 5000 UNIT SUBCUT (18:12)
[2021-09-28] MEDS: Furosemide 40 MG/4 ML VIAL IVPUSH (18:13)
[2021-09-28] MEDS: ondansetron HCL 4 MG/2 ML VIAL IVPUSH (18:13)
--- NOTE | 2021-09-28 18:22 | PC.NURSE ---
medicated per provider order, PO meds held to insure nausea has resolved. pt denies any pain/chest pain at this time.
[2021-09-28 18:49] LABS: Troponin-I High Sensitivity 70.4 ng/L (<3.5-35.0)
[2021-09-28 19:50] LABS: Troponin-I High Sensitivity 109.7 ng/L (<3.5-35.0)
[2021-09-28 20:09] LABS: Glucose, Whole Blood 116 mg/dL (60-115)
[2021-09-28] MEDS: Losartan Potassium 50 MG TABLET PO (20:17)
[2021-09-28] MEDS: carvediloL 12.5 MG TABLET PO (20:17)
[2021-09-28] MEDS: Nitroglycerin 2 % Oint 1 GM Packet 1 INCH TRANSDERMA (20:18)
--- NOTE | 2021-09-28 20:24 | PC.NURSE ---
pt ate apple sauce and small amount of jello. medicated w po meds per provider order. nitro paste applied to left chest. no insulin coverage needed - POC 116.
[2021-09-28] MEDS: Sevelamer Carbonate Tablet 800 MG TABLET 2400 MG PO (22:08)
[2021-09-28] MEDS: Ticagrelor 90 MG TABLET PO (22:10)
[2021-09-28] MEDS: Atorvastatin Calcium 40 MG TABLET PO (22:10)
[2021-09-28] MEDS: Gabapentin 100 MG CAPSULE PO (22:10)
--- NOTE | 2021-09-28 22:11 | PC.NURSE ---
medicated per provider order, breathing treatment started by resp.
[2021-09-29] VITALS (12 sets, daily range): BP systolic 136–185; BP diastolic 38–69; PULSE 65–74; RESP 16–28; TEMP 36.3–37.2; O2SAT 92–100
--- NOTE | 2021-09-29 | ECG_ITS ---
Test Reason : REPEAT Blood Pressure : / mmHG Vent. Rate : 073 BPM Atrial Rate : 073 BPM P-R Int : 146 ms QRS Dur : 090 ms QT Int : 420 ms P-R-T Axes : 028 -41 -20 degrees QTc Int : 462 ms Normal sinus rhythm Left axis deviation Abnormal ECG When compared with ECG of 28-SEP-2021 12:37, No significant change was found Referred By: Sriram Agudelo Electronically Signed By:Shekhar Shepherd
[2021-09-29] MEDS: 0.9 % Sodium Chloride Flush 3 ML SYRINGE IVFLUSH ×4 (00:31→21:15)
--- NOTE | 2021-09-29 00:49 | PC.NURSE ---
pt reports that he is feeling better and his breathing has improved. decrease in audible wheezing. pt denies any pain at this time.
[2021-09-29] MEDS: Heparin Sodium,Porcine 5,000 UNIT/ML VIAL 5000 UNIT SUBCUT ×2 (04:47→17:59)
[2021-09-29] MEDS: Omeprazole 20 MG CAPSULE.DR PO (06:14)
--- NOTE | 2021-09-29 07:00 | CA_ITS ---
Transthoracic Echocardiogram Patient (Last, First, Middle): Mario Drake, Gender: Male Date of : 1955 Age: 66 Procedure Date: 09/29/2021 Procedure Type: Transthoracic Echocardiogram Location: ER Height: 177.8 cm Weight: 84.82 kg BSA: 2.03 m2 Heart Rate: bpm BP: 137 / 68 mmHg Cigarette Paper Tester: VH/TO Referring MD: Sriram Agudelo DO Symptoms: HFpEF Study Quality: Fair/Contrast Conclusions: - Normal left ventricular size and systolic function. There is moderately increased left ventricular wall thickness. The visually estimated ejection fraction is between 60-65%. - Normal right ventricular cavity size and systolic function. - The left atrium is mildly dilated. The right atrium is mildly dilated. - There is mild dilatation of the ascending aorta measuring 3.50 cm and mild dilatation of the aortic arch measuring 3.50 cm. Findings Procedure Information Contrast agent, definity, is being given per protocol without apparent complications. Left Ventricle Normal left ventricular size and systolic function. There is moderately increased left ventricular wall thickness. The visually estimated ejection fraction is between 60-65%. There is no evidence of regional wall motion abnormalities. Abnormal diastolic function is noted. Spectral Doppler is indicative of an impaired relaxation filling pattern. E/E prime ratio is between 8 and 15 consistent with indeterminate filling pressures. Right Ventricle Normal right ventricular cavity size and systolic function. Atria The left atrium is mildly dilated. The right atrium is mildly dilated. Aortic Valve There is mild calcification of the aortic valve. There is no aortic valve stenosis. There is no aortic valve regurgitation. Mitral Valve The mitral valve appears normal. There is no mitral valve regurgitation. There is no mitral valve stenosis. Pulmonic Valve The pulmonic valve is likely normal. Tricuspid Valve Normal tricuspid valve structure and function. There is trace tricuspid valve regurgitation. Normal right atrial pressure. Great Vessels There is mild dilatation of the ascending aorta measuring 3.50 cm and mild dilatation of the aortic arch measuring 3.50 cm. The visualized portions of the pulmonary artery and branches are normal. Venous The inferior vena cava is normal in size and collapses greater than 50% with inspiration. Pericardium/Pleural There is no evidence of pericardial effusion. Prior Study Comparison No significant change compared to prior study dated: 03/23/2018. Measurements 2D Linear Measurements IVSd: 1.35 0.6-0.9/0.6-1.0 cm LVIDd: 5.08 3.9-5.3/4.2-5.9 cm LVIDd Index: 2.50 2.4-3.2/2.2-3.1 cm/m2 LVIDs: 2.78 2.0-3.6 cm LVPWd: 1.38 0.7-1.1 cm LA Diam: 4.60 2.7-3.8/3.0-4.0 cm LAIDs Index: 2.27 1.5-2.3 cm/m2 LV Mass: 359.09 67-162/88-224 g LV Mass Index: 176.89 43-95/49-115 g/m2 LVOT Diam: 2.40 3.0+(-)1.3 cm 2D Systolic Function EF 4C: 70.20 >55% EF 2C: 61.70 >55% EF BiP: 67.60 >55% Mitral Valve MV Pk E: 0.75 MV PK A: 1.06 MV Decel Time: 280.00 E/A: 0.70 E'Lateral: 9.14 E'Medial: 6.09 E/E' Med: 12.20 E/E' Lat: 8.20 PHT: 82.00 MVA PHT: 2.68 Decel [place]: 2.66 Aortic Valve AoV Pk Daniel: 1.69 AoV Mn Daniel: 1.10 AoV VTI: 0.35 AoV Pk Grad: 11.00 Aov Mn Grad: 6.00 GIOVANY Cont.VTI: 2.98 LVOT LVOT Pk Daniel: 1.03 LVOT Mn Daniel: 0.66 LVOT VTI: 0.23 LVOT Pk Grad: 4.00 LVOT Mn Grad: 2.00 LVOT Diam: 2.40 LVOT Area: 4.52 Diastolic Function MV Pk E: 0.75 MV Pk A: 1.06 E/A: 0.70 E'Medial: 6.09 E/E' Med: 12.20 E' Laterial: 9.14 E/E' Lat: 8.20 Right Ventricle TAPSE (mm): 24.90 TVS' Daniel: 17.10 Tricuspid Valve TR Pk Daniel: 2.39 TR Pk Grad: 23.00 RA Press: 3.00 RVSP: 26.00 Great Vessels Aorta Sinus of Valsalva: 4.08 2.0-3.[address] [place]: 2.91 1.7-3.4 cm Ao Asc: 3.50 2.1-3.4 cm Ao Arch: 3.50 Updated in Other Vendor System with Status of Final Shekhar Shepherd MD electronically signed on 09/29/2021 3:20:06 PM with status of Final
[2021-09-29 07:08] LABS: Glucose, Whole Blood 92 mg/dL (60-115)
[2021-09-29] MEDS: Sertraline HCL 100 MG TABLET PO (08:13)
[2021-09-29] MEDS: amLODIPine Besylate 10 MG TABLET PO (08:13)
[2021-09-29] MEDS: Aspirin Enteric Coated 81 MG TABLET.DR PO (08:13)
[2021-09-29] MEDS: Sevelamer Carbonate Tablet 800 MG TABLET 2400 MG PO ×3 (08:13→21:14)
[2021-09-29] MEDS: Losartan Potassium 50 MG TABLET 100 MG PO (08:13)
[2021-09-29] MEDS: Ticagrelor 90 MG TABLET PO ×2 (08:13→21:14)
[2021-09-29] MEDS: Gabapentin 100 MG CAPSULE PO ×2 (08:13→21:14)
[2021-09-29] MEDS: carvediloL 12.5 MG TABLET PO ×2 (08:14→17:59)
[2021-09-29] MEDS: Nitroglycerin 2 % Oint 1 GM Packet 1 INCH TRANSDERMA ×2 (08:14→21:14)
[2021-09-29] MEDS: Albuterol/Iprat 2.5/0.5MG 3 ML AMPUL.NEB INHALE ×4 (08:44→19:26)
--- NOTE | 2021-09-29 09:38 | PC.NURSE ---
pt with 2x assist to bedside commode for BM
--- NOTE | 2021-09-29 11:21 | PC.NURSE ---
phlebotomy at bedside to draw pts blood
--- NOTE | 2021-09-29 11:37 | MHC.CM.PN ---
PT ADMITTED WITH INFLUENZA A. 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 CALL WENT TO . A MESSAGE WAS LEFT REQUESTING A RETURN CALL
[2021-09-29 11:46] LABS: MANUAL DIFF FLAG NO
[2021-09-29 11:48] LABS: Basophils Percent Auto 0.6 % (0-2); Hematocrit 31.6 % (42.0-52.0); Hemoglobin 9.7 g/dl (14.0-18.0); Imm Gran Abs Auto 0.01 X10*3/uL (0.00-0.03); Imm Gran Pct Auto 0.2 % (0.0-0.4); Lymphocytes Absolute Auto 1.1 X10*3/uL (1.2-4.9); Lymphocytes Percent Auto 17.5 % (20-40); Mean Corpuscular HGB Conc 30.7 g/dl (31.0-36.0); Mean Corpuscular Hemoglobin 28.9 pg (27.0-33.0); Mean Platelet Volume 10.6 fL (9.4-12.4); Monocytes Percent Auto 15.5 % (2-11); Neutrophils Absolute Auto 4.2 x10*3/uL (2.0-8.3); Neutrophils Percent Auto 66.2 % (45-73); Platelet Count 160 X10*3/uL (160-400); Red Blood Count 3.36 X10*6/uL (4.60-5.80); White Blood Count 6.3 X10*3/uL (4.8-10.8)
[2021-09-29 12:12] LABS: Troponin-I High Sensitivity 173.2 ng/L (<3.5-35.0)
--- NOTE | 2021-09-29 12:17 | PM.CNCAR ---
History of Present Illness History of Present Illness Date of Service: 09/29/21 Requesting physician: Sriram Agudelo Chief complaint: Influenza A, ? CHF Narrative: 66-year-old gentleman who has background history of end-stage renal disease on hemodialysis and diffuse coronary artery disease. He had ST elevation NJ in July 28 when he had drug-eluting stent placed to the diagonal artery. He presented in 2020 with InStent restenoses and had angioplasty performed to the diagonal 1. He again presented in July 2021 with cardiac arrest in the setting of hypoxia and underwent cardiac catheterization. As per documentation he had a bradycardic cardiac arrest and had a non ST elevation NJ. coronary anatomy showed the mid LAD 70%, 1st diagonal 85%, distal LAD 55%, OM1 40%, LPDA 80% and prox RCA 95%. He had diffuse disease and after discussion medical management was opted. He is now presenting with cough and wheezing. He is influenza A positive. He has mildly abnormal high sensitivity troponin levels. He is denying any chest discomfort. He is saying he missed his hemodialysis on Wednesday. We have been asked to assess him for congestive heart failure. Currently feels better overall. He is hypertensive. Denying any obvious symptoms right now. He is due for dialysis tomorrow. [facility] Past Medical History Medical History (HFpEF) heart failure with preserved ejection fraction CAD (coronary artery disease) Diabetes mellitus End stage renal disease Frailty HTN (hypertension) Ischemic cardiomyopathy Family History Family History Father No problems noted. Mother Diabetes Surgical History Surgical History Hx of cardiac cath Hx of cholecystectomy Hx of colonoscopy Hx of knee surgery Stented coronary artery Social History Social History Household Members: None Housing: Apartment Do you presently have visiting nurse or other home services: No Alcohol intake: never Patient Tobacco Use Status: Never used Tobacco Use of substances other than those prescribed or required for medical reasons: No Advance Directives: Yes Advance Directives on File: Yes Advance Directives Date on File: 12/25/20 service: No Current occupational status: disabled Meds Allergies Allergy/AdvReac Type Severity Reaction Status Date / Time No Known Allergies Allergy Verified 06/13/21 00:51 [No Known Allergies*] Active Medications: Current Medications Albuterol/Ipratropium (Albuterol/Iprat 2.5/0.5mg 3 Ml Ampul.Neb) 3 ml INHALE RQ4H WHILE AWAKE [facility] Last Admin: 09/29/21 11:35 Dose: 3 ml Documented by: Amlodipine Besylate (Amlodipine Besylate 10 Mg Tablet) 10 mg PO DAILY [facility]; Protocol Last Admin: 09/29/21 08:13 Dose: 10 mg Documented by: Aspirin (Aspirin Enteric Coated 81 Mg Tablet.) 81 mg PO DAILY [facility] Last Admin: 09/29/21 08:13 Dose: 81 mg Documented by: Atorvastatin Calcium (Atorvastatin Calcium 40 Mg Tablet) 40 mg PO BEDTIME [facility] Last Admin: 09/28/21 22:10 Dose: 40 mg Documented by: Carvedilol (Carvedilol 12.5 Mg Tablet) 12.5 mg PO BIDWM [facility]; Protocol Last Admin: 09/29/21 08:14 Dose: 12.5 mg Documented by: Gabapentin (Gabapentin 100 Mg Capsule) 100 mg PO BID [facility] Last Admin: 09/29/21 08:13 Dose: 100 mg Documented by: Heparin Sodium (Porcine) (Heparin Sodium,Porcine 5,000 Unit/Ml Vial) 5,000 unit SUBCUT Q12H [facility] Last Admin: 09/29/21 04:47 Dose: 5,000 unit Documented by: Insulin Human Lispro (Insulin Lispro 100 Unit/Ml 3 Ml Vial) 0 unit SUBCUT TIDAC [facility]; Protocol Last Admin: 09/29/21 07:37 Dose: Not Given Documented by: Losartan Potassium (Losartan Potassium 50 Mg Tablet) 100 mg PO DAILY [facility]; Protocol Last Admin: 09/29/21 08:13 Dose: 100 mg Documented by: Meclizine HCl (Meclizine Hcl 12.5 Mg Tablet) 12.5 mg PO TID PRN PRN Reason: Dizziness Nitroglycerin (Nitroglycerin 2 % Oint 1 Gm Packet) 1 inch TRANSDERMA RQ6H WHILE AWAKE [facility] Last Admin: 09/29/21 08:14 Dose: 1 inch Documented by: Omeprazole (Omeprazole 20 Mg Capsule.) 20 mg PO DAILY@0630 [facility] Last Admin: 09/29/21 06:14 Dose: 20 mg Documented by: Ondansetron HCl (Ondansetron Hcl 4 Mg/2 Ml Vial) 4 mg IVPUSH Q8H PRN PRN Reason: Nausea and Vomiting Last Admin: 09/28/21 18:13 Dose: 4 mg Documented by: Oseltamivir Phosphate (Oseltamivir Phosphate 30 Mg Capsule) 30 mg PO Q24H [facility] Stop: 10/02/21 14:01 Pharmacy Consult (Consult Rx Perform Med Rec) 1 each MISCELLANE ONCE PRN PRN Reason: Consult order Senna (Sennosides 8.6 Mg Tablet) 17.2 mg PO BEDTIME PRN PRN Reason: Constipation Sertraline HCl (Sertraline Hcl 100 Mg Tablet) 100 mg PO DAILY [facility] Last Admin: 09/29/21 08:13 Dose: 100 mg Documented by: Sevelamer Carbonate (Sevelamer Carbonate Tablet 800 Mg Tablet) 2,400 mg PO QIDWMHS [facility] Last Admin: 09/29/21 08:13 Dose: 2,400 mg Documented by: Sodium Chloride (0.9 % Sodium Chloride Flush 3 Ml Syringe) 3 ml IVFLUSH QSHIFT [facility] Last Admin: 09/29/21 08:14 Dose: 3 ml Documented by: Ticagrelor (Ticagrelor 90 Mg Tablet) 90 mg PO BID [facility] Last Admin: 09/29/21 08:13 Dose: 90 mg Documented by: Home Medications Medication Instructions Recorded Confirmed Last Taken Type aspirin 81 mg tablet,delayed 81 mg PO DAILY 08/07/20 09/28/21 Unknown History release (Adult Low Dose Aspirin) gabapentin 100 mg capsule 100 mg PO BID 08/07/20 09/28/21 Unknown History pantoprazole 40 mg tablet,delayed 40 mg PO DAILY@0630 08/07/20 09/28/21 Unknown History release sertraline 100 mg tablet 100 mg PO DAILY 08/07/20 09/28/21 Unknown History atorvastatin 40 mg tablet 40 mg PO BEDTIME 12/03/20 09/28/21 Unknown History insulin degludec 200 unit/mL (3 24 unit SUBCUT BEDTIME 12/03/20 09/28/21 Unknown History mL) subcutaneous pen acetaminophen 650 mg 1 tab PO Q8H PRN 12/24/20 09/28/21 Unknown History tablet,extended release sevelamer carbonate 800 mg tablet 2,400 mg PO QIDWMHS 12/24/20 09/28/21 Unknown History amlodipine 10 mg tablet 1 tab PO DAILY 09/28/21 09/28/21 Unknown History insulin lispro 100 unit/mL See Protocol SUBCUT TIDAC 09/28/21 09/28/21 Unknown History subcutaneous pen (Humalog KwikPen (U-100) Insulin) isosorbide mononitrate 30 mg 30 mg PO DAILY 09/28/21 09/28/21 Unknown History tablet,extended release 24 hr lidocaine 5 % topical ointment 1 appl TOPICAL DAILY 09/28/21 09/28/21 Unknown History losartan 50 mg tablet 1 tab PO DAILY 09/28/21 09/28/21 Unknown History meclizine 12.5 mg tablet 1 tab PO TID PRN 09/28/21 09/28/21 Unknown History sennosides 8.6 mg tablet (senna) 2 tab PO BEDTIME PRN 09/28/21 09/28/21 Unknown History Physical Exam Vital Signs: Vital Signs: Last Vital Signs Temp 99.0 F 09/29/21 04:23 Pulse 67 09/29/21 11:44 Resp 18 09/29/21 11:44 BP 185/68 H 09/29/21 11:44 Pulse Ox 100 09/29/21 11:44 BMI result Body Mass Index 26.9 GENERAL APPEARANCE: in no acute distress, pleasant. NECK: no carotid bruit, mild jugular venous distention. SKIN: no suspicious lesions, warm and dry. HEART: no murmurs, regular rate and rhythm. LUNGS: Mild end-expiratory wheezes. ABDOMEN: soft, nontender. EXTREMITIES: no edema. PERIPHERAL PULSES: equal. NEUROLOGIC: No gross deficits, AAO X 3 Objective Labs and Meds Result diagrams: 09/29/21 11:44 09/28/21 12:59 Lab results: Laboratory Results - last 24 hr 09/28/21 09/28/21 09/28/21 12:39 12:59 12:59 WBC 12.1 H RBC 3.87 L D Hgb 11.1 L D Hct 35.9 L D MCV 92.8 MCH 28.7 MCHC 30.9 L RDW 16.0 Plt Count 212 MPV 11.3 Immature Gran % (Auto) 0.4 Neut % (Auto) 88.2 H Lymph % (Auto) 4.6 L [place] % (Auto) 6.3 Eos % (Auto) 0.1 Baso % (Auto) 0.4 Lymph # (Auto) 0.6 L [place] # (Auto) 0.8 Eos # (Auto) 0.0 Baso # (Auto) 0.1 Abs Immat Gran (auto) 0.05 H Absolute Neuts (auto) 10.6 H Absolute Nucleated RBC 0.000 Nucleated RBC % (auto) 0.0 Sodium 139 Potassium 4.7 Chloride 96 Carbon Dioxide 27 Anion Gap 21 H BUN 37 H Creatinine 6.48 H* Estim Creat Clear Calc 11.4 Estimated GFR 9 POC Glucose 107 Random Glucose 128 H D Lactic Acid Calcium 9.5 Magnesium 2.6 Total Bilirubin 0.7 Direct Bilirubin 0.3 AST 15 D ALT 10 Alkaline Phosphatase 120 H Troponin I High Sens B-Natriuretic Peptide Total Protein 8.5 H Albumin 4.3 COVID-19 ([facility]) COVID-19 Clin Com Influenza Type A ([facility]) Influenza Type B ([facility]) Influenza A & B Note 09/28/21 09/28/21 09/28/21 12:59 12:59 13:00 WBC RBC Hgb Hct MCV MCH MCHC RDW Plt Count MPV Immature Gran % (Auto) Neut % (Auto) Lymph % (Auto) [place] % (Auto) Eos % (Auto) Baso % (Auto) Lymph # (Auto) [place] # (Auto) Eos # (Auto) Baso # (Auto) Abs Immat Gran (auto) Absolute Neuts (auto) Absolute Nucleated RBC Nucleated RBC % (auto) Sodium Potassium Chloride Carbon Dioxide Anion Gap BUN Creatinine Estim Creat Clear Calc Estimated GFR POC Glucose Random Glucose Lactic Acid 1.7 Calcium Magnesium Total Bilirubin Direct Bilirubin AST ALT Alkaline Phosphatase Troponin I High Sens 70.4 H B-Natriuretic Peptide 497 H Total Protein Albumin COVID-19 ([facility]) COVID-19 Clin Com Influenza Type A ([facility]) Positive A Influenza Type B ([facility]) Negative Influenza A & B Note See Note 09/28/21 09/28/21 09/28/21 13:00 13:54 17:14 WBC RBC Hgb Hct MCV MCH MCHC RDW Plt Count MPV Immature Gran % (Auto) Neut % (Auto) Lymph % (Auto) [place] % (Auto) Eos % (Auto) Baso % (Auto) Lymph # (Auto) [place] # (Auto) Eos # (Auto) Baso # (Auto) Abs Immat Gran (auto) Absolute Neuts (auto) Absolute Nucleated RBC Nucleated RBC % (auto) Sodium Potassium Chloride Carbon Dioxide Anion Gap BUN Creatinine Estim Creat Clear Calc Estimated GFR POC Glucose 126 H 156 H Random Glucose Lactic Acid Calcium Magnesium Total Bilirubin Direct Bilirubin AST ALT Alkaline Phosphatase Troponin I High Sens B-Natriuretic Peptide Total Protein Albumin COVID-19 ([facility]) Negative COVID-19 Clin Com See Note Influenza Type A ([facility]) Influenza Type B ([facility]) Influenza A & B Note 09/28/21 09/28/21 09/29/21 19:07 20:04 07:04 WBC RBC Hgb Hct MCV MCH MCHC RDW Plt Count MPV Immature Gran % (Auto) Neut % (Auto) Lymph % (Auto) [place] % (Auto) Eos % (Auto) Baso % (Auto) Lymph # (Auto) [place] # (Auto) Eos # (Auto) Baso # (Auto) Abs Immat Gran (auto) Absolute Neuts (auto) Absolute Nucleated RBC Nucleated RBC % (auto) Sodium Potassium Chloride Carbon Dioxide Anion Gap BUN Creatinine Estim Creat Clear Calc Estimated GFR POC Glucose 116 H 92 Random Glucose Lactic Acid Calcium Magnesium Total Bilirubin Direct Bilirubin AST ALT Alkaline Phosphatase Troponin I High Sens 109.7 H* D B-Natriuretic Peptide Total Protein Albumin COVID-19 ([facility]) COVID-19 Clin Com Influenza Type A ([facility]) Influenza Type B ([facility]) Influenza A & B Note 09/29/21 09/29/21 11:44 11:44 WBC 6.3 RBC 3.36 L Hgb 9.7 L Hct 31.6 L MCV 94.0 MCH 28.9 MCHC 30.7 L RDW 16.0 Plt Count 160 MPV 10.6 Immature Gran % (Auto) 0.2 Neut % (Auto) 66.2 Lymph % (Auto) 17.5 L [place] % (Auto) 15.5 H Eos % (Auto) 0.0 Baso % (Auto) 0.6 Lymph # (Auto) 1.1 L [place] # (Auto) 1.0 Eos # (Auto) 0.0 Baso # (Auto) 0.0 Abs Immat Gran (auto) 0.01 Absolute Neuts (auto) 4.2 Absolute Nucleated RBC 0.000 Nucleated RBC % (auto) 0.0 Sodium Potassium Chloride Carbon Dioxide Anion Gap BUN Creatinine Estim Creat Clear Calc Estimated GFR POC Glucose Random Glucose Lactic Acid Calcium Magnesium Total Bilirubin Direct Bilirubin AST ALT Alkaline Phosphatase Troponin I High Sens 173.2 H* D B-Natriuretic Peptide Total Protein Albumin COVID-19 ([facility]) COVID-19 Clin Com Influenza Type A ([facility]) Influenza Type B ([facility]) Influenza A & B Note Imaging Radiologist's impression: Impressions Chest X-Ray 09/28/21 13:06 IMPRESSION: No acute disease. Assessment and Plan (1) Influenza A: Status: Acute (2) ESRD needing dialysis: Status: Acute (3) CAD (coronary artery disease): Status: Acute Plan 66-year-old gentleman presenting for influenza a and shortness of breath. He was wheezing on examination admission and question was raised whether this is cardiac asthma or related to influenza. He is reporting that he missed hemodialysis on Wednesday. On exam he has mild JVD but is wheezing is much better. I think it is a combination of influenza and some volume overload. He is due for hemodialysis tomorrow and I think he can get volume optimization with that and potentially go home after that. He has diffuse coronary artery disease based on cardiac catheterization as described above. Should continue his dual antiplatelet therapy. His blood pressure is elevated. He will get hemodialysis tomorrow at then we can reassess his blood pressure. It is a good possibility that after volume removal his blood pressure will improve. If blood pressure does not improve then titrate his antihypertensive starting with carvedilol and that can be increased to 25 mg twice a day. I think he is clinically stable and can have your dialysis tomorrow. Mildly elevated troponin level in the setting of high blood pressure and end-stage renal disease. This is not ACS. Thank you for allowing me to participate in the care of your patient. Please feel free to contact me if you have any questions. Procedures Date of Service Date of Service: 09/29/21
[2021-09-29 12:21] LABS: Alanine Aminotransferase 12 U/L (0-40); Albumin Level 3.7 g/dL (3.5-5.0); Alkaline Phosphatase 93 U/L (39-117); Anion Gap 22 (12-20); Aspartate Amino Transferase 19 U/L (5-37); Bilirubin Total 0.7 mg/dL (0.0-1.0); Blood Urea Nitrogen 61 mg/dL (9-16); Calcium 8.8 mg/dL (8.4-10.2); Carbon Dioxide 25 mmol/L (22-29); Chloride 96 mmol/L (96-108); Creatinine Clr Calc Pharmacy 8.5; Estimated Glomerular Filt Rate 6; Glucose Fasting 190 mg/dL (60-99); Potassium 5.7 mmol/L (3.3-5.1); Sodium 137 mmol/L (135-145); Total Protein 7.2 g/dL (6.5-8.0)
[2021-09-29 13:08] LABS: Glucose, Whole Blood 139 mg/dL (60-115)
[2021-09-29] MEDS: Oseltamivir Phosphate 30 MG CAPSULE PO (13:40)
--- NOTE | 2021-09-29 14:08 | HO.PM.IMPN ---
Subjective Subjective Date of Service: 09/29/21 Interval History: Much better today per patient; still fatigued Review of Systems Denies chest pain Denies shortness of breath Denies nausea vomiting diarrhea Physical Exam Vital Signs: Vital Signs: Last Vital Signs Temp 99.0 F 09/29/21 04:23 Pulse 69 09/29/21 13:49 Resp 21 H 09/29/21 13:49 BP 160/52 H 09/29/21 13:49 Pulse Ox 97 09/29/21 13:49 BMI result Body Mass Index 26.9 Const: Other: Somnolent but arousable Resp: Other: Scattered expiratory wheezes throughout Cardio: Other: No S4; positive S1-S2; no S3 murmurs rubs or gallops GI: Other: Obese soft nontender nondistended with normoactive bowel sounds Extrem: Other: No edema Objective Data Active Medications Albuterol/Ipratropium (Albuterol/Iprat 2.5/0.5mg 3 Ml Ampul.Neb) 3 ml INHALE RQ4H WHILE AWAKE [facility] Last Admin: 09/29/21 11:35 Dose: 3 ml Documented by: MARCO A Amlodipine Besylate (Amlodipine Besylate 10 Mg Tablet) 10 mg PO DAILY [facility]; Protocol Last Admin: 09/29/21 08:13 Dose: 10 mg Documented by: VINCENZO Aspirin (Aspirin Enteric Coated 81 Mg Tablet.Dr) 81 mg PO DAILY [facility] Last Admin: 09/29/21 08:13 Dose: 81 mg Documented by: VINCENZO Atorvastatin Calcium (Atorvastatin Calcium 40 Mg Tablet) 40 mg PO BEDTIME [facility] Last Admin: 09/28/21 22:10 Dose: 40 mg Documented by: KIKE Carvedilol (Carvedilol 12.5 Mg Tablet) 12.5 mg PO BIDWM [facility]; Protocol Last Admin: 09/29/21 08:14 Dose: 12.5 mg Documented by: VINCENZO Gabapentin (Gabapentin 100 Mg Capsule) 100 mg PO BID [facility] Last Admin: 09/29/21 08:13 Dose: 100 mg Documented by: VINCENZO Heparin Sodium (Porcine) (Heparin Sodium,Porcine 5,000 Unit/Ml Vial) 5,000 unit SUBCUT Q12H [facility] Last Admin: 09/29/21 04:47 Dose: 5,000 unit Documented by: WOODY Insulin Human Lispro (Insulin Lispro 100 Unit/Ml 3 Ml Vial) 0 unit SUBCUT TIDAC [facility]; Protocol Last Admin: 09/29/21 13:36 Dose: Not Given Documented by: VINCENZO Non-Admin Reason: No Insulin Coverage Losartan Potassium (Losartan Potassium 50 Mg Tablet) 100 mg PO DAILY [facility]; Protocol Last Admin: 09/29/21 08:13 Dose: 100 mg Documented by: VINCENZO Meclizine HCl (Meclizine Hcl 12.5 Mg Tablet) 12.5 mg PO TID PRN PRN Reason: Dizziness Nitroglycerin (Nitroglycerin 2 % Oint 1 Gm Packet) 1 inch TRANSDERMA RQ6H WHILE AWAKE [facility] Last Admin: 09/29/21 08:14 Dose: 1 inch Documented by: VINCENZO Omeprazole (Omeprazole 20 Mg Capsule.Dr) 20 mg PO DAILY@0630 [facility] Last Admin: 09/29/21 06:14 Dose: 20 mg Documented by: WOODY Ondansetron HCl (Ondansetron Hcl 4 Mg/2 Ml Vial) 4 mg IVPUSH Q8H PRN PRN Reason: Nausea and Vomiting Last Admin: 09/28/21 18:13 Dose: 4 mg Documented by: MADDENL Oseltamivir Phosphate (Oseltamivir Phosphate 30 Mg Capsule) 30 mg PO Q24H [facility] Stop: 10/02/21 14:01 Last Admin: 09/29/21 13:40 Dose: 30 mg Documented by: VINCENZO Pharmacy Consult (Consult Rx Perform Med Rec) 1 each MISCELLANE ONCE PRN PRN Reason: Consult order Senna (Sennosides 8.6 Mg Tablet) 17.2 mg PO BEDTIME PRN PRN Reason: Constipation Sertraline HCl (Sertraline Hcl 100 Mg Tablet) 100 mg PO DAILY [facility] Last Admin: 09/29/21 08:13 Dose: 100 mg Documented by: VINCENZO Sevelamer Carbonate (Sevelamer Carbonate Tablet 800 Mg Tablet) 2,400 mg PO QIDWMHS [facility] Last Admin: 09/29/21 13:40 Dose: 2,400 mg Documented by: VINCENZO Sodium Chloride (0.9 % Sodium Chloride Flush 3 Ml Syringe) 3 ml IVFLUSH QSHIFT [facility] Last Admin: 09/29/21 08:14 Dose: 3 ml Documented by: VINCENZO Ticagrelor (Ticagrelor 90 Mg Tablet) 90 mg PO BID [facility] Last Admin: 09/29/21 08:13 Dose: 90 mg Documented by: VINCENZO Labs CBC & Chem 7: 09/29/21 11:44 09/29/21 11:44 Labs: Laboratory Results - last 24 hr 09/28/21 09/28/21 09/28/21 12:59 12:59 17:14 MCV MCH MCHC RDW Plt Count MPV Immature Gran % (Auto) Neut % (Auto) Lymph % (Auto) [place] % (Auto) Eos % (Auto) Baso % (Auto) Lymph # (Auto) [place] # (Auto) Eos # (Auto) Baso # (Auto) Abs Immat Gran (auto) Absolute Neuts (auto) Absolute Nucleated RBC Nucleated RBC % (auto) Anion Gap 21 H Estim Creat Clear Calc 11.4 Estimated GFR 9 POC Glucose 156 H Random Glucose 128 H D Fasting Glucose Calcium 9.5 Magnesium 2.6 Total Bilirubin 0.7 Direct Bilirubin 0.3 AST 15 D ALT 10 Alkaline Phosphatase 120 H Troponin I High Sens 70.4 H B-Natriuretic Peptide 497 H Total Protein 8.5 H Albumin 4.3 09/28/21 09/28/21 09/29/21 19:07 20:04 07:04 MCV MCH MCHC RDW Plt Count MPV Immature Gran % (Auto) Neut % (Auto) Lymph % (Auto) [place] % (Auto) Eos % (Auto) Baso % (Auto) Lymph # (Auto) [place] # (Auto) Eos # (Auto) Baso # (Auto) Abs Immat Gran (auto) Absolute Neuts (auto) Absolute Nucleated RBC Nucleated RBC % (auto) Anion Gap Estim Creat Clear Calc Estimated GFR POC Glucose 116 H 92 Random Glucose Fasting Glucose Calcium Magnesium Total Bilirubin Direct Bilirubin AST ALT Alkaline Phosphatase Troponin I High Sens 109.7 H* D B-Natriuretic Peptide Total Protein Albumin 09/29/21 09/29/21 09/29/21 11:44 11:44 11:44 MCV 94.0 MCH 28.9 MCHC 30.7 L RDW 16.0 Plt Count 160 MPV 10.6 Immature Gran % (Auto) 0.2 Neut % (Auto) 66.2 Lymph % (Auto) 17.5 L [place] % (Auto) 15.5 H Eos % (Auto) 0.0 Baso % (Auto) 0.6 Lymph # (Auto) 1.1 L [place] # (Auto) 1.0 Eos # (Auto) 0.0 Baso # (Auto) 0.0 Abs Immat Gran (auto) 0.01 Absolute Neuts (auto) 4.2 Absolute Nucleated RBC 0.000 Nucleated RBC % (auto) 0.0 Anion Gap 22 H Estim Creat Clear Calc 8.5 Estimated GFR 6 POC Glucose Random Glucose Fasting Glucose 190 H Calcium 8.8 D Magnesium Total Bilirubin 0.7 Direct Bilirubin AST 19 ALT 12 Alkaline Phosphatase 93 D Troponin I High Sens 173.2 H* D B-Natriuretic Peptide Total Protein 7.2 Albumin 3.7 09/29/21 13:02 MCV MCH MCHC RDW Plt Count MPV Immature Gran % (Auto) Neut % (Auto) Lymph % (Auto) [place] % (Auto) Eos % (Auto) Baso % (Auto) Lymph # (Auto) [place] # (Auto) Eos # (Auto) Baso # (Auto) Abs Immat Gran (auto) Absolute Neuts (auto) Absolute Nucleated RBC Nucleated RBC % (auto) Anion Gap Estim Creat Clear Calc Estimated GFR POC Glucose 139 H Random Glucose Fasting Glucose Calcium Magnesium Total Bilirubin Direct Bilirubin AST ALT Alkaline Phosphatase Troponin I High Sens B-Natriuretic Peptide Total Protein Albumin Assessment and Plan (1) Influenza A: Status: Acute (2) (HFpEF) heart failure with preserved ejection fraction: Status: Acute (3) ESRD needing dialysis: Status: Acute (4) HTN (hypertension): Status: Acute Plan 66 yo male with hx of DM, ESR on HD T Th S did go yesterday, HTN, CAD s/p recent STEMI on aspirin and brilinta, CHF, comes in not feeling well short of breath, weak, found confused with low blood?sugars. Responded to glucose. Influenza A positive. Noted to have diffuse wheezing unresponsive to albuterol neb; chest x-ray without occult failure 1. Influenza A -Tamiflu renally dosed -supportive care 2. HFp EF and backdrop of recent MRI -BP adjustments with good results -cardiology notes and reviewed 3. ESRD on PRINTING TABLE HAND - dialysis tomorrow -renal consult 4. Hypertension -good response to initial changes -follow-up after dialysis tomorrow -adjust as indicated 5. Type 2 diabetes -given relative hypoglycemia will hold long-acting insulin -list pro correctional scale with TID-AC ,HS POCs Full code Lovenox Will require hospitalization for treatment of likely CHF back exacerbate fofana in the backdrop of influenza a. Quality Stroke Does the patient have a stroke diagnosis?: No VTE Prior VTE?: No VTE Risk Level:: Medical - moderate - high VTE Device Contraindication: Treatment Not Indicated VTE Drug Contraindication: N/A - Med Ordered
--- NOTE | 2021-09-29 16:20 | PM.CNNEP ---
History of Present Illness Reason for Consult Consult date: 09/29/21 Reason for consult: ESRD on HD Chief Complaint Chief complaint: Influenza A, ? CHF History of Present Illness Narrative: 66 yo male with hx of ESRD on HD T, Th, S, T2DM, HTN, CAD s/p recent STEMI on aspirin and brilinta, CHF who presented on 09/28 with complaints of not feeling well and shortness of breath. He was found to be weak with low BS?s. Influenza A positive. ER course Given Tamiflu orally. Chest x-ray and lab ; white count 12.1; States he completed full HD treatment on Wednesday. Review of Systems Review of Systems Yes all other systems are reviewed and are negative [facility] Past Medical History Medical History (HFpEF) heart failure with preserved ejection fraction CAD (coronary artery disease) Diabetes mellitus End stage renal disease Frailty HTN (hypertension) Ischemic cardiomyopathy Family History Family History Father No problems noted. Mother Diabetes Surgical History Surgical History Hx of cardiac cath Hx of cholecystectomy Hx of colonoscopy Hx of knee surgery Stented coronary artery Social History Social History Household Members: None Housing: Apartment Do you presently have visiting nurse or other home services: No Alcohol intake: never Patient Tobacco Use Status: Never used Tobacco Use of substances other than those prescribed or required for medical reasons: No Advance Directives: Yes Advance Directives on File: Yes Advance Directives Date on File: 12/25/20 service: No Current occupational status: disabled Meds Allergies Allergy/AdvReac Type Severity Reaction Status Date / Time No Known Allergies Allergy Verified 06/13/21 00:51 [No Known Allergies*] Active Medications: Current Medications Albuterol/Ipratropium (Albuterol/Iprat 2.5/0.5mg 3 Ml Ampul.Neb) 3 ml INHALE RQ4H WHILE AWAKE [facility] Last Admin: 09/29/21 15:44 Dose: 3 ml Documented by: Amlodipine Besylate (Amlodipine Besylate 10 Mg Tablet) 10 mg PO DAILY [facility]; Protocol Last Admin: 09/29/21 08:13 Dose: 10 mg Documented by: Aspirin (Aspirin Enteric Coated 81 Mg Tablet.) 81 mg PO DAILY [facility] Last Admin: 09/29/21 08:13 Dose: 81 mg Documented by: Atorvastatin Calcium (Atorvastatin Calcium 40 Mg Tablet) 40 mg PO BEDTIME [facility] Last Admin: 09/28/21 22:10 Dose: 40 mg Documented by: Carvedilol (Carvedilol 12.5 Mg Tablet) 12.5 mg PO BIDWM [facility]; Protocol Last Admin: 09/29/21 08:14 Dose: 12.5 mg Documented by: Gabapentin (Gabapentin 100 Mg Capsule) 100 mg PO BID [facility] Last Admin: 09/29/21 08:13 Dose: 100 mg Documented by: Heparin Sodium (Porcine) (Heparin Sodium,Porcine 5,000 Unit/Ml Vial) 5,000 unit SUBCUT Q12H [facility] Last Admin: 09/29/21 04:47 Dose: 5,000 unit Documented by: Insulin Human Lispro (Insulin Lispro 100 Unit/Ml 3 Ml Vial) 0 unit SUBCUT TIDAC [facility]; Protocol Last Admin: 09/29/21 13:36 Dose: Not Given Documented by: Losartan Potassium (Losartan Potassium 50 Mg Tablet) 100 mg PO DAILY [facility]; Protocol Last Admin: 09/29/21 08:13 Dose: 100 mg Documented by: Meclizine HCl (Meclizine Hcl 12.5 Mg Tablet) 12.5 mg PO TID PRN PRN Reason: Dizziness Nitroglycerin (Nitroglycerin 2 % Oint 1 Gm Packet) 1 inch TRANSDERMA RQ6H WHILE AWAKE [facility] Last Admin: 09/29/21 08:14 Dose: 1 inch Documented by: Omeprazole (Omeprazole 20 Mg Capsule.) 20 mg PO DAILY@0630 [facility] Last Admin: 09/29/21 06:14 Dose: 20 mg Documented by: Ondansetron HCl (Ondansetron Hcl 4 Mg/2 Ml Vial) 4 mg IVPUSH Q8H PRN PRN Reason: Nausea and Vomiting Last Admin: 09/28/21 18:13 Dose: 4 mg Documented by: Oseltamivir Phosphate (Oseltamivir Phosphate 30 Mg Capsule) 30 mg PO Q24H [facility] Stop: 10/02/21 14:01 Last Admin: 09/29/21 13:40 Dose: 30 mg Documented by: Pharmacy Consult (Consult Rx Perform Med Rec) 1 each MISCELLANE ONCE PRN PRN Reason: Consult order Senna (Sennosides 8.6 Mg Tablet) 17.2 mg PO BEDTIME PRN PRN Reason: Constipation Sertraline HCl (Sertraline Hcl 100 Mg Tablet) 100 mg PO DAILY [facility] Last Admin: 09/29/21 08:13 Dose: 100 mg Documented by: Sevelamer Carbonate (Sevelamer Carbonate Tablet 800 Mg Tablet) 2,400 mg PO QIDWMHS [facility] Last Admin: 09/29/21 13:40 Dose: 2,400 mg Documented by: Sodium Chloride (0.9 % Sodium Chloride Flush 3 Ml Syringe) 3 ml IVFLUSH QSHIFT [facility] Last Admin: 09/29/21 08:14 Dose: 3 ml Documented by: Ticagrelor (Ticagrelor 90 Mg Tablet) 90 mg PO BID [facility] Last Admin: 09/29/21 08:13 Dose: 90 mg Documented by: Home Medications Medication Instructions Recorded Confirmed Last Taken Type aspirin 81 mg tablet,delayed 81 mg PO DAILY 08/07/20 09/28/21 Unknown History release (Adult Low Dose Aspirin) gabapentin 100 mg capsule 100 mg PO BID 08/07/20 09/28/21 Unknown History pantoprazole 40 mg tablet,delayed 40 mg PO DAILY@0630 08/07/20 09/28/21 Unknown History release sertraline 100 mg tablet 100 mg PO DAILY 08/07/20 09/28/21 Unknown History atorvastatin 40 mg tablet 40 mg PO BEDTIME 12/03/20 09/28/21 Unknown History insulin degludec 200 unit/mL (3 24 unit SUBCUT BEDTIME 12/03/20 09/28/21 Unknown History mL) subcutaneous pen acetaminophen 650 mg 1 tab PO Q8H PRN 12/24/20 09/28/21 Unknown History tablet,extended release sevelamer carbonate 800 mg tablet 2,400 mg PO QIDWMHS 12/24/20 09/28/21 Unknown History amlodipine 10 mg tablet 1 tab PO DAILY 09/28/21 09/28/21 Unknown History insulin lispro 100 unit/mL See Protocol SUBCUT TIDAC 09/28/21 09/28/21 Unknown History subcutaneous pen (Humalog KwikPen (U-100) Insulin) isosorbide mononitrate 30 mg 30 mg PO DAILY 09/28/21 09/28/21 Unknown History tablet,extended release 24 hr lidocaine 5 % topical ointment 1 appl TOPICAL DAILY 09/28/21 09/28/21 Unknown History losartan 50 mg tablet 1 tab PO DAILY 09/28/21 09/28/21 Unknown History meclizine 12.5 mg tablet 1 tab PO TID PRN 09/28/21 09/28/21 Unknown History sennosides 8.6 mg tablet (senna) 2 tab PO BEDTIME PRN 09/28/21 09/28/21 Unknown History Physical Exam Vital Signs: Last Vital Signs Temp 99.0 F 09/29/21 04:23 Pulse 70 09/29/21 15:45 Resp 21 H 09/29/21 15:45 BP 160/52 H 09/29/21 13:49 Pulse Ox 97 09/29/21 13:49 BMI result Body Mass Index 26.9 Const General: cooperative and no acute distress Orientation/consciousness: patient oriented x3 HEENT Head: Yes normal to inspection, Yes normocephalic and Yes atraumatic Neck Neck: Yes no JVD Resp Auscultation: clear to auscultation bilaterally Cardio Jugular venous distension: no JVD Palpation: normal PMI Rate: regular rate Rhythm: regular rhythm Heart sounds: S1 normal heart sound present and S2 normal heart sound present GI Auscultation: normal bowel sounds Neuro General: patient oriented x3 and no focal motor deficits Extrem General: Yes no clubbing, cyanosis or edema Results Lab Results Result Diagrams: 09/29/21 11:44 09/29/21 11:44 Lab results: Chemistry 09/28/21 09/29/21 12:59 11:44 Sodium 139 137 Potassium 4.7 5.7 H D Carbon Dioxide 27 25 BUN 37 H 61 H D Creatinine 6.48 H* 8.65 H* Calcium 9.5 8.8 D Hematology 09/28/21 09/29/21 12:59 11:44 WBC 12.1 H 6.3 Hgb 11.1 L D 9.7 L Plt Count 212 160 Assessment and Plan (1) ESRD needing dialysis: Status: Acute 66 yo male with hx of ESRD on HD T, Th, S, T2DM, HTN, CAD s/p recent STEMI on aspirin and brilinta, CHF who presented on 09/28 with complaints of not feeling well and shortness of breath. He was found to be weak with low BS?s. Influenza A positive. ER course Given Tamiflu orally. Chest x-ray and lab ; white count 12.1; States he completed full HD treatment on Wednesday. Plan: ESRD: nl TThSat Hyperkalemia: Lokelma prn (10 G) for K> 5.0 Labile HTN: r/s BP meds gradually ESRD-Anemia: iron panel added. ESRD-MBD: PTH, Phos for am. (2) HTN (hypertension): Status: Acute Procedures Date of Service Date of Service: 09/29/21
[2021-09-29 21:03] LABS: Glucose, Whole Blood 125 mg/dL (60-115)
[2021-09-29] MEDS: Atorvastatin Calcium 40 MG TABLET PO (21:14)
[2021-09-30 03:06] VITALS: BP 140/57; PULSE 66; RESP 18; TEMP 36.9; O2SAT 93
[2021-09-30] MEDS: Heparin Sodium,Porcine 5,000 UNIT/ML VIAL 5000 UNIT SUBCUT (03:27)
[2021-09-30] MEDS: Benzonatate 100 MG CAPSULE PO (03:46)
[2021-09-30] MEDS: Omeprazole 20 MG CAPSULE.DR PO (05:34)
[2021-09-30 06:20] LABS: MANUAL DIFF FLAG NO
[2021-09-30 06:26] LABS: Basophils Percent Auto 0.5 % (0-2); Eosinophils Percent Auto 0.7 % (0-4); Hematocrit 30.1 % (42.0-52.0); Hemoglobin 9.1 g/dl (14.0-18.0); Imm Gran Abs Auto 0.02 X10*3/uL (0.00-0.03); Imm Gran Pct Auto 0.4 % (0.0-0.4); Lymphocytes Absolute Auto 1.2 X10*3/uL (1.2-4.9); Lymphocytes Percent Auto 20.8 % (20-40); Mean Corpuscular HGB Conc 30.2 g/dl (31.0-36.0); Mean Corpuscular Hemoglobin 28.3 pg (27.0-33.0); Mean Corpuscular Volume 93.5 fL (80.0-98.0); Mean Platelet Volume 11.5 fL (9.4-12.4); Monocytes Absolute Auto 0.7 X10*3/uL (0.1-1.2); Monocytes Percent Auto 12.5 % (2-11); Neutrophils Absolute Auto 3.7 x10*3/uL (2.0-8.3); Neutrophils Percent Auto 65.1 % (45-73); Platelet Count 162 X10*3/uL (160-400); Red Blood Count 3.22 X10*6/uL (4.60-5.80); Red Cell Distribution Width 15.8 % (11.0-16.0); White Blood Count 5.7 X10*3/uL (4.8-10.8)
[2021-09-30 06:52] LABS: Alanine Aminotransferase 13 U/L (0-40); Albumin Level 3.5 g/dL (3.5-5.0); Alkaline Phosphatase 84 U/L (39-117); Anion Gap 23 (12-20); Aspartate Amino Transferase 17 U/L (5-37); Bilirubin Total 0.6 mg/dL (0.0-1.0); Blood Urea Nitrogen 82 mg/dL (9-16); Calcium 8.7 mg/dL (8.4-10.2); Carbon Dioxide 23 mmol/L (22-29); Chloride 96 mmol/L (96-108); Creatinine Clr Calc Pharmacy 7.4; Estimated Glomerular Filt Rate 5; Glucose Fasting 159 mg/dL (60-99); Potassium 5.4 mmol/L (3.3-5.1); Sodium 137 mmol/L (135-145); Total Protein 6.8 g/dL (6.5-8.0)
[2021-09-30 07:38] VITALS: BP 137/63; PULSE 63; RESP 16; TEMP 36.7; O2SAT 94
--- NOTE | 2021-09-30 11:14 | MHC.CM.PN ---
Patient is in HD and unavailable; CM left IMM at bedside and put a copy in the chart. CM was unable to reach Daughter/Felicity by phone ([phone], , ) Per ROUNDS MD, Patient has a PCP and will be dc today, no further services.
--- NOTE | 2021-09-30 12:15 | MHC.CM.PN ---
Patient has been medically cleared for dc to home today, self care.
[2021-09-30 13:10] LABS: Glucose, Whole Blood 141 mg/dL (60-115)
--- NOTE | 2021-09-30 13:17 | P.DS_ITS ---
DS: Providers Provider Date of Service: 09/30/21 Date of admission: 09/28/21 15:43 Primary care physician: Timmy Hadley MD Consults: 09/29/21 07:40 Consult to Cardiology Routine Consulting Provider: Shekhar Shepherd Reason for consultation: elevated troponin Has provider been notified: No 09/29/21 07:47 Consult to Nephrology Routine Consulting Provider: Zan Mendenhall Reason for consultation: ESRD on HD Has provider been notified: No DS: Diagnosis Discharge Diagnosis (1) ESRD needing dialysis: Status: Acute (2) HTN (hypertension): Status: Acute DS: Summary Hospital Course Hospital Course: Chief Complaint: Weakness 66 yo male with hx of DM, ESR on HD T Th S did go yesterday, HTN, CAD s/p recent STEMI on aspirin and brilinta, CHF, comes in not feeling well short of breath, weak, found confused with low blood sugars cannot elaborate more on what happened but notes he just overall doesn't feel well. Responded to glucose from EMS. oral glucose given ER course Given Tamiflu orally.? Chest x-ray and lab ; white count 12.1; creatinine 6.48 (HD on Wednesday. . .? Did complete dialysis yesterday) and influenza swab positive for influenza A.? Will be admitted for further workup and treatment hospital course 66 yo male with hx of DM, ESRD on HD T Th S did go yesterday, HTN, CAD s/p recent STEMI on aspirin and brilinta, CHF, comes in not feeling well, short of breath, weak, found confused with low blood?sugars.? Responded to glucose.? Influenza A positive.? Noted to have diffuse wheezing unresponsive to albuterol neb; chest x-ray without occult failure, patient admitted to medical floor with a diagnosis of influenza a and was treated with renally dosed Tamiflu and supportive care, in regard to shortness of breath it was felt that patient has fluid overload therefore treated with hemodialysis, patient evaluated by Dr. Shepherd from Cardiology and did not find to have acute coronary syndrome or acute heart failure, since patient is feeling significantly better this morning he is being discharged home with [facility] and [facility] services as before in regard to recent FL patient has been continued on all home medication and has been recommended close outpatient cardiology follow-up. In regard to low blood sugars patient long-acting insulin dose has been reduced he has been recommend to continue insulin sliding scale and monitor blood sugars closely at home. hypertension blood pressure is stable end-stage renal disease continue hemodialysis as before. Time Spent with Patient Time attestation: Total time spent providing and/or coordinating discharge services: Discharge coordination time: Greater than 30 minutes Quality: Safe Use of Opioids Does Pt have an Active Cancer Diagnosis on the Problem List?: No Quality: Stroke Does the patient have a stroke diagnosis?: No Physical Exam Vital Signs: Vital Signs: Last Vital Signs Temp 98.1 F 09/30/21 07:38 Pulse 63 09/30/21 07:38 Resp 16 09/30/21 07:38 BP 137/63 09/30/21 07:38 Pulse Ox 94 09/30/21 07:38 BMI result Body Mass Index 26.9 Const: Other: General Awake alert x3, in no acute distress. Neck supple no JVD. CVS regular rate rhythm, Respiratory lungs clear to auscultation, no respiratory distress, no wheeze, no rhonchi. Gastrointestinal abdomen soft, nontender, bowel sounds audible Extremities no edema. Neuro nonfocal DS: Data Data Completed and Pending Completed studies during hospitalization [Text1]: Procedures Performance of Urinary Filtration, Intermittent, Less than 6 Hours Per Day (12/24/20) Labs on day of discharge: Laboratory Results - last 24 hr 09/29/21 09/30/21 09/30/21 20:59 05:40 05:40 WBC 5.7 RBC 3.22 L Hgb 9.1 L Hct 30.1 L MCV 93.5 MCH 28.3 MCHC 30.2 L RDW 15.8 Plt Count 162 MPV 11.5 Immature Gran % (Auto) 0.4 Neut % (Auto) 65.1 Lymph % (Auto) 20.8 [place] % (Auto) 12.5 H Eos % (Auto) 0.7 Baso % (Auto) 0.5 Lymph # (Auto) 1.2 [place] # (Auto) 0.7 Eos # (Auto) 0.0 Baso # (Auto) 0.0 Abs Immat Gran (auto) 0.02 Absolute Neuts (auto) 3.7 Absolute Nucleated RBC 0.000 Nucleated RBC % (auto) 0.0 Sodium 137 Potassium 5.4 H Chloride 96 Carbon Dioxide 23 Anion Gap 23 H BUN 82 H D Creatinine 10.00 H* Estim Creat Clear Calc 7.4 Estimated GFR 5 POC Glucose 125 H Fasting Glucose 159 H Calcium 8.7 Total Bilirubin 0.6 AST 17 ALT 13 Alkaline Phosphatase 84 Total Protein 6.8 Albumin 3.5 09/30/21 13:06 WBC RBC Hgb Hct MCV MCH MCHC RDW Plt Count MPV Immature Gran % (Auto) Neut % (Auto) Lymph % (Auto) [place] % (Auto) Eos % (Auto) Baso % (Auto) Lymph # (Auto) [place] # (Auto) Eos # (Auto) Baso # (Auto) Abs Immat Gran (auto) Absolute Neuts (auto) Absolute Nucleated RBC Nucleated RBC % (auto) Sodium Potassium Chloride Carbon Dioxide Anion Gap BUN Creatinine Estim Creat Clear Calc Estimated GFR POC Glucose 141 H Fasting Glucose Calcium Total Bilirubin AST ALT Alkaline Phosphatase Total Protein Albumin Preliminary micro results at discharge 09/28/21 13:24 Blood Culture - Preliminary Blood - Venous No growth after 24 hours. 09/28/21 12:59 Blood Culture - Preliminary Blood - Venous No growth after 24 hours. Discharge Plan Discharge Patient Disposition: Home Health Service Discharge Diagnosis: influenza A elevated troponin end-stage renal disease on hemodialysis Referrals: [facility] [place] [Outside] - 1 Week Name,MD Timmy [Primary Care Provider] - 1 Week Discharge Medications: New oseltamivir 30 mg Capsule 30 mg PO Q24H Qty: 2 0RF Continued carvedilol [Coreg] 12.5 mg tablet 12.5 mg PO BIDWM 30 Days Qty: 60 0RF Rx Instructions: must administer with a meal/food - must schedule cardiology appt for refills Brilinta 90 mg tablet 90 mg PO BID 90 Days Qty: 180 0RF Rx Instructions: Must attend 7/ appointment acetaminophen 650 mg tablet extended release 1 tab PO Q8H PRN (Reason: Pain) 0RF sevelamer carbonate 800 mg tablet 2,400 mg PO QIDWMHS 0RF Rx Instructions: 3 TABLETS TID WITH MEALS AND SNACK AT BEDTIME losartan 50 mg tablet 1 tab PO DAILY 0RF sennosides [senna] 8.6 mg tablet 2 tab PO BEDTIME PRN (Reason: Constipation) 0RF meclizine 12.5 mg tablet 1 tab PO TID PRN (Reason: Dizziness) 0RF amlodipine 10 mg tablet 1 tab PO DAILY 0RF insulin lispro [Humalog KwikPen Insulin] 100 unit/mL insulin pen See Protocol sliding scale dose subcut TIDAC 0RF Protocol: Insulin Correction Scale Less than or equal to 110 ---- Give (units): 0 111 to 150 Give (units): 0 151 to 200 Give (units): 2 201 to 250 Give (units): 4 251 to 300 Give (units): 6 301 to 350 Give (units): 8 Greater than 350 Give (units): 10 Call MD if Blood Glucose > : 350 lidocaine 5 % ointment 1 appl topical DAILY 0RF isosorbide mononitrate 30 mg tablet extended release 24 hr 30 mg PO DAILY 0RF aspirin [Adult Low Dose Aspirin] 81 mg tablet,delayed release (DR/EC) 81 mg PO DAILY 0RF gabapentin 100 mg capsule 100 mg PO BID 0RF pantoprazole 40 mg tablet,delayed release (DR/EC) 40 mg PO DAILY@0630 0RF sertraline 100 mg tablet 100 mg PO DAILY 0RF atorvastatin 40 mg tablet 40 mg PO BEDTIME 0RF Changed insulin degludec 200 unit/mL (3 mL) insulin pen 12 unit subcut BEDTIME Qty: 0 0RF Discharge Orders: Discharge Order (Routine); Ordered 09/30/21 Ordered By: Lorrie Schultz Diet: diabetic diet Activity on Discharge: As tolerated Stand Alone Forms: Patient Portal Discharge page Care Plan Goals: take Tamiflu for 2 more days rest and continue hemodialysis as before dose of insulin reduced due to low blood sugars at a.m. follow blood sugars closely Health Concerns: continue all home medications as before Plan of Treatment: outpatient follow-up with primary care physician Assessment: as per discharge summary
[2021-09-30] MEDS: Nitroglycerin 2 % Oint 1 GM Packet 1 INCH TRANSDERMA (13:39)
[2021-09-30] MEDS: Sevelamer Carbonate Tablet 800 MG TABLET 2400 MG PO (13:39)
[2021-09-30] MEDS: Oseltamivir Phosphate 30 MG CAPSULE PO (13:39)
--- NOTE | 2021-09-30 14:52 | MHC.CM.PN ---
CM was informed today that Patient was [facility]. PROMISE has informed MD of this, sent dc paperwork to the [facility] and notice of dc today.
[2021-09-30 15:03] VITALS: BP 176/76; PULSE 68; RESP 20; TEMP 36.7; O2SAT 90
--- NOTE | 2021-09-30 15:28 | MHC.CM.PN ---
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
--- NOTE | 2021-09-30 15:33 | MHC.CM.PN ---
CM has left a detailed message for Daughter/Felicity @ [phone], informing her that Patient has been dc and requesting her to provide transportation to home if she is able.CM awaits return call from Felicity.
--- NOTE | 2021-09-30 15:45 | MHC.CM.PN ---
CM spoke with Patient's SPICE ROOM WORKER/Robin @ [phone]; he will provide transportation to home around 6PM. RN has been made aware.
--- NOTE | 2021-09-30 17:30 | PM.PNNEP ---
Subjective Subjective Date of Service: 09/30/21 Interval history: Chart reviewed. Events noted. Physical Exam Vital Signs: Vital Signs: Last Vital Signs Temp 98.1 F 09/30/21 15:03 Pulse 68 09/30/21 15:03 Resp 20 09/30/21 15:03 BP 176/76 H 09/30/21 15:03 Pulse Ox 90 L 09/30/21 15:03 BMI result Body Mass Index 26.9 Const: General: cooperative and no acute distress HEENT: Head: Yes normocephalic and Yes atraumatic Neck: Neck: Yes no JVD Resp: Auscultation: clear to auscultation bilaterally Cardio: Jugular venous distension: no JVD Rate: regular rate Rhythm: regular rhythm Heart sounds: S1 normal heart sound present and S2 normal heart sound present GI: Auscultation: normal bowel sounds Neuro: General: no focal motor deficits Extrem: General: Yes no clubbing, cyanosis or edema Objective Data Labs CBC & Chem 7: 09/30/21 05:40 09/30/21 05:40 Labs: Laboratory Results - last 24 hr 09/29/21 09/30/21 09/30/21 20:59 05:40 05:40 WBC 5.7 RBC 3.22 L Hgb 9.1 L Hct 30.1 L MCV 93.5 MCH 28.3 MCHC 30.2 L RDW 15.8 Plt Count 162 MPV 11.5 Immature Gran % (Auto) 0.4 Neut % (Auto) 65.1 Lymph % (Auto) 20.8 [place] % (Auto) 12.5 H Eos % (Auto) 0.7 Baso % (Auto) 0.5 Lymph # (Auto) 1.2 [place] # (Auto) 0.7 Eos # (Auto) 0.0 Baso # (Auto) 0.0 Abs Immat Gran (auto) 0.02 Absolute Neuts (auto) 3.7 Absolute Nucleated RBC 0.000 Nucleated RBC % (auto) 0.0 Sodium 137 Potassium 5.4 H Chloride 96 Carbon Dioxide 23 Anion Gap 23 H BUN 82 H D Creatinine 10.00 H* Estim Creat Clear Calc 7.4 Estimated GFR 5 POC Glucose 125 H Fasting Glucose 159 H Calcium 8.7 Total Bilirubin 0.6 AST 17 ALT 13 Alkaline Phosphatase 84 Total Protein 6.8 Albumin 3.5 09/30/21 13:06 WBC RBC Hgb Hct MCV MCH MCHC RDW Plt Count MPV Immature Gran % (Auto) Neut % (Auto) Lymph % (Auto) [place] % (Auto) Eos % (Auto) Baso % (Auto) Lymph # (Auto) [place] # (Auto) Eos # (Auto) Baso # (Auto) Abs Immat Gran (auto) Absolute Neuts (auto) Absolute Nucleated RBC Nucleated RBC % (auto) Sodium Potassium Chloride Carbon Dioxide Anion Gap BUN Creatinine Estim Creat Clear Calc Estimated GFR POC Glucose 141 H Fasting Glucose Calcium Total Bilirubin AST ALT Alkaline Phosphatase Total Protein Albumin Microbiology Microbiology Results: Microbiology 09/28/21 13:24 Blood - Venous Blood Culture - Preliminary No growth after 48 hours. 09/28/21 12:59 Blood - Venous Blood Culture - Preliminary No growth after 48 hours. Procedures Date of Service Date of Service: 09/30/21 Assessment & Plan Assessment and plan (1) ESRD needing dialysis: Status: Acute Plan 66 yo male with hx of ESRD on HD T, Th, S, T2DM, HTN, CAD s/p recent STEMI on aspirin and brilinta, CHF who presented on 09/28 with complaints of not feeling well and shortness of breath. He was found to be weak with low BS?s. Influenza A positive.? Plan: ESRD: nl TThSat Hyperkalemia: Lokelma prn (10 G) for K> 5.0 Labile HTN: r/s BP meds gradually ESRD-Anemia: f/u iron panel ESRD-MBD: f/u pth, phos. Time Spent With Patient Time: Total time spent is greater than 50% in coordination of care (as documented) at patient's floor/unit and/or counseling patient: Progress Note: Quality Stroke Does the patient have a stroke diagnosis?: No
== END 2021-09-30 18:00 | disposition home health service (06) | DRG 193 ==
LOC: HO.ED 13:59 → HO.EDOVER 15:50 → HO.IMC 09-29 17:31
PROVIDERS: Admitting Provider Hospitalist; Emergency Provider Emergency Medicine; PCP Internal Medicine Geriatric Medicine; Visit Provider Hospitalist
DX: J10.1 Influenza due to other identified influenza virus with other respiratory manifestations (principal); N18.6 End stage renal disease; I50.33 Acute on chronic diastolic (congestive) heart failure; I13.2 Hypertensive heart and chronic kidney disease with heart failure and with stage 5 chronic kidney disease, or end stage renal disease; E11.22 Type 2 diabetes mellitus with diabetic chronic kidney disease; Z99.2 Dependence on renal dialysis; E11.649 Type 2 diabetes mellitus with hypoglycemia without coma; D63.1 Anemia in chronic kidney disease; N25.0 Renal osteodystrophy; I25.10 Atherosclerotic heart disease of native coronary artery without angina pectoris; I25.5 Ischemic cardiomyopathy; Z20.822 Contact with and (suspected) exposure to COVID-19; Z79.4 Long term (current) use of insulin; Z79.82 Long term (current) use of aspirin; Z79.899 Other long term (current) drug therapy
CPT/HCPCS: 36415; 71045; 80048; 80053; 80076; 82947; 83605; 83735; 83880; 84484; 85025; 87040; 87502; 87635; 90999; 93005; 93306; 94640; 99285; J1940; J2405; Q9957

== ENCOUNTER → 2021-11-14 09:44 | Outpatient (BNVA) | payer MEDICARE, MEDICAID, SELFPAY | PROVIDERS: PCP Internal Medicine Geriatric Medicine; Referring Provider Internal Medicine Geriatric Medicine; Visit Provider Internal Medicine Cardiovascular Disease | DX: I50.30 Unspecified diastolic (congestive) heart failure (principal); I25.10 Atherosclerotic heart disease of native coronary artery without angina pectoris; Z79.82 Long term (current) use of aspirin; Z79.899 Other long term (current) drug therapy | CPT/HCPCS: 99212 ==

== ENCOUNTER 2022-05-06 09:55 | Outpatient (REF) | payer MEDICARE, MEDICAID, SELFPAY | END 2022-05-06 09:56 | disposition home or self-care (01) | LOC: HO.SH 09:55 | PROVIDERS: Visit Provider Internal Medicine Geriatric Medicine | DX: Z01.118 Encounter for examination of ears and hearing with other abnormal findings (principal); H90.3 Sensorineural hearing loss, bilateral | CPT/HCPCS: 92557; 92567 ==

== ENCOUNTER 2022-06-17 09:05 | Outpatient (REF) | payer MEDICARE, MEDICAID, SELFPAY ==
--- NOTE | 2022-06-17 11:05 | MHC.AU.HA1 ---
Hearing Aid Evaluation Date of Visit: 06/17/22 Description of Hearing: Audiogram from this facility dated 05/06/22 reveals a profound sensorineural hearing loss in the right ear (CNT WRS) and a moderate to profound sensorineural hearing loss in the left ear (excellent WRS). See audiogram for full report. Summary: The patient is here, accompanied by his HUMAN RESOURCES INTERN, for a hearing aid consultation. He was under the impression that his insurance was accepted here for hearing aids. We spent time discussing his hearing loss and the steps to take to get hearing aids covered by his insurance. First, we discussed the patient's asymmetric hearing loss. His progressive hearing loss has occurred gradually over the past several years. We discussed that the right ear is unaidable and I recommend to consider CROS style hearing aids, pending medical management and medical clearance from ENT. He states he went years ago to an ENT but not recently. Medical history is significant for stroke, type 2 diabetes, congestive heart failure myocardial infarction, coronary artery disease, and end stage renal disease. He is on dialysis. The patient was instructed to 1- contact his PCP for a referral to ENT for medical management and signed medical clearance. 2- Call his insurance to find out where to go to obtain hearing aids covered by his insurance (not accepted here). 3- Make appointment for hearing aid consult and bring audiogram and signed medical clearance to that appointment. These steps were written down and given to the patient along with his audiogram. The patient's daughter and HUMAN RESOURCES INTERN will assist him in this process. No other questions or concerns reported at this time. Additional follow-up as needed. Primary Diagnosis: H90.3 Bilateral Sensorineural Hearing Loss Signature: Provider: Abelardo Carroll, [facility]
== END 2022-06-17 09:06 | disposition home or self-care (01) ==
LOC: HO.HAP 09:05
PROVIDERS: Visit Provider Internal Medicine Geriatric Medicine
DX: Z13.89 Encounter for screening for other disorder (principal)